=== PATIENT | female | born 1935 | race Caucasian/White ===

== ENCOUNTER 2017-09-28 11:28 | Emergency (ER) | payer MEDICARE, SELFPAY ==
[2017-09-28 11:29] VITALS: BP 181/78; PULSE 55; RESP 16; TEMP 36.6; O2SAT 98; BMI 37.4
--- NOTE | 2017-09-28 11:49 | RAD_ITS ---
STUDY: X-RAY - PELVIS AND RIGHT HIP REASON FOR EXAM: Right hip pain, leg gave out today. TECHNIQUE: Radiological exam, hip, unilateral, with pelvis when performed; 2 or 3 views. COMPARISON: None. FINDINGS: There is vascular calcification, pelvic phleboliths and injection granulomas. Normal bilateral iliac wings, sacroiliac joints and visualized sacrum. Normal bilateral superior and inferior pubic rami. Normal pubic symphysis. Normal bilateral ischial tuberosities. Normal visualized right femoral head. There is a small right os acetabula. Normal right hip joint. RAD/Hip 2-3 Views with Pelvis IMPRESSION: Small right os acetabula. No demonstrated fracture. Electronically Signed: Jonathan Pulido MD at 12:37 EDT Tel , Service support ,
[2017-09-28 12:16] VITALS: BP 193/83; PULSE 54; RESP 18; O2SAT 98
--- NOTE | 2017-09-28 13:22 | ED.DCSUM_ITS ---
- ER Visit Summary Date of Service: 09/28/17 Chief Complaint: Right hip pain History of Present Illness: The patient is a 82 F who presents with 2 days of right hip pain. She describes this as a spasms. She rates it as severe. No radiation. She denies paresthesias weakness or loss of function. She states it began after my hip gave out. She has had 2 falls in the last 2 weeks. She has been able to ambulate. She uses a walker or cane. She denies any recent illness. Physical Examination: Afebrile vitals are stable Moist mucous membranes Heart regular rate and rhythm Lungs are clear Abdomen soft Active full range of motion of the right lower extremity no focal tenderness neurovascularly intact distally with brisk capillary refill normal sensation. No pain at the knee or ankle. Test Results: Hip x-ray shows no fracture there is a small right os acetabuli. Emergency Department Course and Treatment: Patient was instructed on supportive care. She is able to ambulate. She has a life alert necklace at home. She does not want anything strong for pain such as Ruffin. We will try a course of tramadol. She understands return for new or worsening symptoms. She was referred to orthopedics for outpatient follow-up. She was discharged. Treatment Plan: [] Disposition: Discharge Impression: Right hip pain This note was generated with [employer] dictation software. It may contain incorrect words, spelling, and punctuation that were not noted in review of the chart prior to signing ED Disposition - Plan for ED Patient: Chief Complaint: Lower Extremity Injury Referrals: Regi Aguilar MD [Primary Care Provider] -
--- NOTE | 2017-09-28 13:22 | ED.DEP ---
ED Disposition - Plan for ED Patient: Chief Complaint: Lower Extremity Injury Instructions: ED Sprain Hip Prescriptions: traMADol [Ultram] 50 mg PO Q6H PRN PRN 3 Days #12 tab PRN Reason: Pain Referrals: Regi Aguilar MD [Primary Care Provider] - Martin Gibbs MD [STAFF PHYSICIAN] -
[2017-09-28] MEDS: traMADol 50 MG Tablet PO (13:37)
[2017-09-28 13:45] VITALS: RESP 18
--- NOTE | 2017-09-28 13:45 | ED.RN ---
DR. ROMERO AWARE OF PT'S BP AND STATES SHE IS OKAY TO BE DISCHARGED. REVIEWED D/C INSTRUCTIONS, FOLLOW UP CARE, PRESCRIPTION, AND S/S THAT WOULD WARRANT A RETURN TO THE ED WITH PT. PT VERBALIZED AN UNDERSTANDING AND DENIES FURTHER QUESTIONS FOR THIS RN. PT SKIN P/W/D, RESP EVEN AND UNLABORED, PT A&O X 3, NO DISTRESS NOTED. PT ASSISTED OUT OF ED IN WHEELCHAIR.
== END 2017-09-28 13:46 | disposition home or self-care (01) ==
LOC: ED 12:17
PROVIDERS: Emergency Provider Emergency Medicine; Family Provider Internal Medicine; PCP Internal Medicine
DX: M25.551 Pain in right hip (principal); M25.851 Other specified joint disorders, right hip; Z91.81 History of falling; Z86.73 Personal history of transient ischemic attack (TIA), and cerebral infarction without residual deficits; I25.10 Atherosclerotic heart disease of native coronary artery without angina pectoris; I25.2 Old myocardial infarction; I10 Essential (primary) hypertension; Z95.5 Presence of coronary angioplasty implant and graft; Z79.82 Long term (current) use of aspirin; Z79.899 Other long term (current) drug therapy
CPT/HCPCS: 73502; 99283

== ENCOUNTER 2017-10-02 17:12 | Inpatient (IN) | payer MEDICARE, SELFPAY ==
[2017-10-02 17:13] VITALS: BP 233/94; PULSE 57; RESP 16; TEMP 36.3; BMI 36.1
--- NOTE | 2017-10-02 17:48 | RAD_ITS ---
STUDY: X-RAY - RIGHT KNEE REASON FOR EXAM: Female, 82 years old. Numbness. TECHNIQUE: 4 view(s) of the knee. COMPARISON: 04/05/2016. FINDINGS: Normal visualized distal femur. Normal visualized proximal tibia and fibula. Normal proximal tibiofibular articulation. There is no demonstrated fracture. There is mild degenerative arthrosis of the medial femorotibial compartment. Normal lateral femorotibial compartment. There is mild degenerative arthrosis of the patellofemoral articulation. There is no demonstrated joint effusion. The soft tissue structures are unremarkable. RAD/Knee 4 or More Views IMPRESSION: No acute abnormality or change. Mild degenerative changes. Electronically Signed: Edvin Gallardo MD at 20:05 EDT , Service support ,
--- NOTE | 2017-10-02 17:48 | VDLE_ITS ---
Reason For Study: LEG PAIN RIGHT GSV is normal. CFV is compressible, spontaneous, phasic, competent and demonstrates normal augmentation. FV is compressible, spontaneous, phasic, competent and demonstrates normal augmentation. POP V is compressible, spontaneous, phasic, competent and demonstrates normal augmentation. T/P Trunk is compressible. PTV is compressible. RT PerV is compressible. Procedure Exam performed portable in patient room. A preliminary report was called and/or faxed to PCU charge nurse. Interpretation Summary Deep veins of the right lower extremity are patent and compressible segmentally. There is no evidence of right lower extremity deep vein thrombosis. Valvular competence appears intact within the proximal deep venous system on the right . The right greater saphenous vein appears patent and compressible segmentally. Ordering Physician: Riley Medrano Referring Physician: Regi Aguilar M.D. Performed By: Olesya Maldonado RVT
--- NOTE | 2017-10-02 17:48 | RAD_ITS ---
STUDY: X-RAY - PELVIS AND RIGHT HIP REASON FOR EXAM: Female, 82 years old. Numbness. TECHNIQUE: Radiological exam, hip, unilateral, with pelvis when performed; 2 or 3 views. COMPARISON: None. FINDINGS: There is a non-specific bowel gas pattern. Normal visualized soft tissue structures. Normal bilateral iliac wings, sacroiliac joints and visualized sacrum. Normal bilateral superior and inferior pubic rami. Normal pubic symphysis. Normal bilateral ischial tuberosities. Normal visualized femoral head. Normal acetabulum. There is mild articular joint space narrowing of the hip. RAD/Hip 2-3 Views with Pelvis IMPRESSION: No acute abnormality. Electronically Signed: Edvin Gallardo MD at 20:06 EDT , Service support ,
--- NOTE | 2017-10-02 19:17 | ED.RN ---
UNABLE TO OBTAIN IV, LAB TO BE CALLED TO DRAW BLOOD
--- NOTE | 2017-10-02 19:36 | ED.RN ---
PT AND FAMILY BOTH STATE SHE WAS JUST HERE THE OTHER DAY. NO MEDS HAVE CHANGED SINCE THEN. THEY ARE ALL THE SAME. WE DO NOT HAVE A LIST WITH US.
[2017-10-02] MEDS: traMADol 50 MG Tablet PO (19:57)
[2017-10-02] MEDS: hydrOXYzine PAM 25 MG Capsule PO (20:23)
--- NOTE | 2017-10-02 20:29 | EKG12_ITS ---
Test Reason : PAIN Blood Pressure : / mmHG Vent. Rate : 081 BPM Atrial Rate : 081 BPM P-R Int : 168 ms QRS Dur : 092 ms QT Int : 402 ms P-R-T Axes : 052 -01 171 degrees QTc Int : 466 ms Sinus rhythm with frequent Premature ventricular complexes Nonspecific ST and T wave abnormality Abnormal ECG Confirmed by KYLE HDZ, JOSÉ ([id number]), editor dictionary JOCE KERN ([id number]) on 10/05/2017 2:48:11 PM Referred By: NICK Confirmed By:JOSÉ WRIGHT MD
[2017-10-02 20:32] VITALS: BP 210/98; PULSE 64; RESP 18; O2SAT 97
--- NOTE | 2017-10-02 20:33 | ED.RN ---
LAB IN ROOM WITH PT. PT REFUSES IV.
[2017-10-02 21:02] LABS: Absolute Lymphocyte Count 4.75 X10^3/ul (0.83-4.51); Absolute Neutrophil Count 5.6 X10^3/uL (2.0-7.7); Basophil# 0.02 X10^3/uL; Basophil% 0.2 % (0-1); Eosinophil# 0.05 X10^3/uL; Eosinophils% 0.5 % (0-5); Hematocrit 34.6 % (37-47); Hemoglobin 11.4 g/dl (12.0-15.0); Lymphocyte # 4.75 X10^3/ul (4.0); Lymphocyte % 43.1 % (19-41); Mean Corp Hgb Conc 32.9 g/gl (32-36); Mean Corpuscular Hgb 26.3 pg (27.0-32.0); Mean Corpuscular Volume 79.7 fL (81-99); Mean Platelet Vol. 8.6 fl (6.2-12.0); Monocyte# 0.57 X10^3/uL; Monocyte% 5.2 % (0-10); Neutrophil % 50.8 % (47-70); Platelet Count 365 K/mm3 (150-450); RBC Distribution Width CV 16.5 % (11.6-14.6); RBC Distribution Width SD 48.3 fl (35.1-43.9); Red Blood Count 4.34 M/mm3 (4.2-5.4)
[2017-10-02 21:04] LABS: POSITIVE COUNT NO; POSITIVE DIFFERENTIAL NO; POSITIVE MORPHOLOGY NO
[2017-10-02 21:17] LABS: Anion Gap 11 (5-15); BUN 13 mg/dL (7-18); BUN/Creat Ratio 14.7 RATIO (10-20); Calcium,Total 9.5 mg/dL (8.5-10.1); Chloride 96 mmol/L (98-107); Creatinine, Serum 0.88 mg/dL (0.55-1.02); EST Glomerular Filtration Rate 65 mL/min (>60); Est Glom Filt Rate - Afr Amer 79 mL/min (>60); Estimated Creatinine Clearance 44.03 ml/min; Glucose 101 mg/dL (74-106); Potassium 3.2 mmol/L (3.5-5.1); Sodium Level 130 mmol/L (136-145)
[2017-10-02] MEDS: cloNIDine HCl 0.1 MG Tablet PO (21:34)
[2017-10-02 21:45] LABS: International Normalized Ratio 0.9; Prothrombin Time (Protime)PT. 12.5 SECONDS (11.7-14.9)
--- NOTE | 2017-10-02 22:01 | ED.DCSUM_ITS ---
- ER Visit Summary Date of Service: 10/02/17 Chief Complaint: Right hip and leg pain History of Present Illness: The patient is a 82 F who presents with right hip and leg pain. History is difficult. She is a very poor informant. I did see her several days ago. She had a hip x-ray at that time which was unremarkable and was sent home on tramadol. She states that this was providing a little relief. She ran out last night. No falls. Initially T she told me that she was unable to ambulate at all today. She then stated that she was ambulating with a walker. She initially told me that her pain was isolated to her right hip and that she had no leg pain. She then stated that she had leg numbness. She then stated that the pain went down to her knee. She then stated that the pain went all the way to her foot. Denies back pain abdominal pain chest pain shortness of breath nausea vomiting diarrhea. Physical Examination: Blood pressure 233/94. Afebrile vitals otherwise unremarkable Heart regular rate and rhythm Lungs clear Abdomen soft Patient is right hip tenderness and painful range of motion she had some mild tenderness of the right knee as well she has no edema she has capillary refill less than 2 seconds I was unable to easily palpate pulses but she does have Doppler signals of the dorsalis pedis and posterior tibial pulses Test Results: Labs are notable for hemoglobin 11.4, potassium 3.2, sodium 130. INR normal. EKG shows sinus rhythm with PVCs. There are nonspecific ST-T wave changes. X-ray shows no acute process. Knee x-ray shows mild degenerative changes. Emergency Department Course and Treatment: She is complaining of limited mobility and increased right hip pain despite tramadol at home. She also has uncontrolled hypertension. On manual her systolic was about to 10. She has been given clonidine. She was also asking for something for anxiety and was given Vistaril. She states that tramadol really was not helping but refused oxycodone when it was offered and asked just for tramadol which was given. Patient will be discussed with the hospitalist for admission. I do feel she will need further workup for her right lower extremity pain and difficulty with ambulation Treatment Plan: [] Disposition: Admit Impression: Right hip and leg pain Uncontrolled hypertension This note was generated with [employer] software. It may contain incorrect words, spelling, and punctuation that were not noted in review of the chart prior to signing ED Disposition - Plan for ED Patient: Chief Complaint: Lower Extremity Injury Referrals: Regi Aguilar MD [Primary Care Provider] -
[2017-10-02 22:14] VITALS: BP 209/89; PULSE 77; RESP 18; O2SAT 98
--- NOTE | 2017-10-02 23:14 | PCM.HP.STD ---
Problem List (1) HTN (hypertension) Status: Chronic (2) Anxiety Status: Acute (3) Neuropathy Status: Acute History of Present Illness Date of Admission: 10/02/17 Chief Complaint: HTN urgency The patient is a 82 year old female w/ h/o HTN, GERD, and lipidemia admitted for HTN urgency. Pt lives by herself and has been getting progressively weaker. She is a poor historian and has poor insight and judgment. Family members have been thinking about wanting to place her in a half-way. She is unable to care for herself and has been forgetful. She came into the ED because of bilateral lower extremities weakness. Nothing appeared to make it better or worse. The weakness is associated to acute on chronic worsening bilateral hip and knee pain. Pain is dull aching and severe. She is supposed to take medication for her pain but she refused. It is questionable that she took her high blood pressure meds. Family members have been caring for her but has not told her that she may need to go to the half-way for care. Past Medical History Past Medical History (Chronic Problems): Chronic Problems HTN (hypertension) (Chronic) Allergies cortisone [Cortisone] Allergy (Verified 09/28/17 11:31) Swelling Penicillins Allergy (Verified 09/28/17 11:31) Swelling sulfamethoxazole [From Bactrim] Allergy (Verified 09/28/17 11:31) Swelling trimethoprim [From Bactrim] Allergy (Verified 09/28/17 11:31) Swelling Home Medications: Ambulatory Orders Medication Instructions Recorded Calcium Carbonate/Vitamin D3 1 each PO DAILY 06/25/13 [Calcium 600-Vit D3 400 Tablet] Gabapentin 1,200 mg PO Q8 06/25/13 Glucosamine Sulfate Dipot Chlr 500 mg PO DAILY 06/25/13 [Glucosamine Relief] Hydrochlorothiazide 25 mg PO DAILY 06/25/13 Lisinopril 10 mg PO DAILY 06/25/13 Metoprolol Tartrate 12.5 mg PO DAILY 06/25/13 Aspirin 325 mg PO DAILY@0800 #30 tablet 06/27/13 Pantoprazole Sodium [Protonix] 40 mg PO DAILY 06/27/13 Pravastatin [Pravachol] 20 mg PO QHS #30 tablet 06/27/13 Metronidazole [Flagyl] 500 mg PO Q8H #15 tablet 08/29/14 levoFLOXacin tablet [Levaquin] 500 mg PO DAILY #5 tablet 08/29/14 Docusate Sodium [Colace] 100 mg PO DAILY #20 capsule 03/28/16 Nitrofurantoin Macrocrystals 100 mg PO Q12 #14 capsule 04/03/16 [Macrobid] traMADol [Ultram] 50 mg PO Q6H PRN PRN 3 Days #12 tab 09/28/17 Surgical History: appendectomy, coronary bypass surgery, - - Appendectomy partial hysterectomy coronary artery bypass surgery, salpingectomy Psychiatric History: No pertinent psych hx 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 Denies: Joint Tenderness Skin: Denies: Rash, Wounds Neurological: Denies: Numbness, Tingling, Focal weakness Psychiatric: Denies: Anxiety, Depression, Homicidal Ideations, Suicidal Ideations Hematologic/ Lymphatic: Denies: Easy Bruising, Easy Bleeding VTE Information - Inpt Only VTE Present on Admission: No VTE Mechan Device Prophylaxis: SCD's VTE Pharm Prophylaxis ordered?: Yes Patient Problems: Active and Suspected Problems Anxiety (Acute) Neuropathy (Acute) - Physical Exam General: Alert, Cooperative HEENT: Atraumatic, PERRLA, EOMI, Normocephalic Neck: Supple, No JVD, Negative Carotid Bruits Lungs: Clear to auscultation, Normal air movement Cardiovascular: Regular rate, No murmurs Abdomen: Bowel Sounds Present, Soft, Non Tender Extremities: No edema, Capillary Refill Less than 3 Seconds Skin: No rashes, No breakdown Musculoskeletal: No Tenderness to Palpation of Joints or Extremities Neurological: Cranial nerves II-XII grossly intact Psych/Mental Status: Normal Affect, Appropriate Vital Signs Temp Pulse Resp BP Pulse Ox 97.3 F L 77 18 209/89 H 98 10/02/17 17:13 10/02/17 22:14 10/02/17 22:14 10/02/17 22:14 10/02/17 22:14 Weight: 95.45 kg Body Mass Index (BMI) 36.1 Finger Stick Blood Glucose 106 Laboratory Tests Past 24 Hrs 10/02/17 10/02/17 10/02/17 20:40 20:40 20:40 WBC 11.0 RBC 4.34 Hgb 11.4 L Hct 34.6 L MCV 79.7 L MCH 26.3 L MCHC 32.9 RDW 16.5 H RDW Differential 48.3 H Plt Count 365 MPV 8.6 Immature Gran % (Auto) 0.200 Neut % (Auto) 50.8 Lymph % (Auto) 43.1 H [place] % (Auto) 5.2 Eos % (Auto) 0.5 Baso % (Auto) 0.2 Absolute Neuts (auto) 5.6 Absolute Lymphs (auto) 4.75 H Total Counted Not Reportable PT 12.5 INR 0.9 Sodium 130 L Potassium 3.2 L Chloride 96 L Carbon Dioxide 23.0 Anion Gap 11 BUN 13 Creatinine 0.88 Estim Creat Clear Calc 44.03 Est GFR (MDRD) Af Amer 79 Est GFR (MDRD) Non-Af 65 BUN/Creatinine Ratio 14.7 Glucose 101 Calcium 9.5 Assessment/Plan Active and Suspected Problems Anxiety (Acute) Neuropathy (Acute) 82 year old female w/ h/o HTN, GERD, and lipidemia admitted for HTN urgency. 1) HTN urgency: Probably secondary to noncompliant w/ meds. Resume home meds. Will bring SBP down slowly. Monitor. 2) Bilateral lower extremity pain: Most likely acute on chronic. Xray disclosed no acute changes. PT/OT. Will probably need placement as pt cannot care for her ADLs. 3) Bilateral lower extremity weakness: PT/OT. Supportive care 4) Dispo: May need placement.
[2017-10-02 23:44] VITALS: PULSE 66
[2017-10-03] VITALS (15 sets, daily range): BP systolic 95–190; BP diastolic 50–98; PULSE 68–135; RESP 14–20; TEMP 36.5–38.9; O2SAT 95–100; BMI 36.8; BMI 36.9
[2017-10-03] MEDS: traMADol 50 MG Tablet PO (03:54)
[2017-10-03] MEDS: LORazepam 1 MG Tablet PO ×2 (04:18→08:50)
[2017-10-03 05:24] LABS: Mucous, Urine 0 SEEN /hpf (<or=2+)
[2017-10-03 05:28] LABS: Color, Urine Yellow (Yellow); Glucose, Dipstick Normal (Normal); Ketone-Dipstick 5 mg/dl (Negative); Leukocyte Esterase-Dipstick 500 /ul (Negative); Nitrite-Dipstick Positive (Negative); Occult Blood-Urine 10 /ul (Negative); Protein-Dipstick Negative (Negative); Urine Bilirubin Dipstick Negative (Negative); Urine Clarity Sl. Cloudy (Clear); Urine Urobilinogen Normal (Normal)
[2017-10-03 05:37] LABS: Bacteria 3+ /hpf (None Seen); Red Blood Cells-Urine 0-5 SEEN /hpf (0-5); Squamous Epithelial Cells - UA 0-5 SEEN /hpf (5-10); White Blood Cells 50-100 SEEN /hpf (0-5)
[2017-10-03 06:11] LABS: Hematocrit 33.3 % (37-47); Mean Corpuscular Hgb 26.2 pg (27.0-32.0); Mean Corpuscular Volume 79.3 fL (81-99); Mean Platelet Vol. 8.8 fl (6.2-12.0); Platelet Count 380 K/mm3 (150-450); RBC Distribution Width CV 16.5 % (11.6-14.6); RBC Distribution Width SD 47.5 fl (35.1-43.9); White Blood Count 8.8 K/mm3 (4.4-11.0)
[2017-10-03 06:17] LABS: Scan Indicated on CBC? Y/N NO
[2017-10-03] MEDS: Gabapentin 600 MG Tablet PO ×2 (06:28→23:13)
[2017-10-03] MEDS: Senna Tablet 2 TABLET PO (06:28)
[2017-10-03] MEDS: Enoxaparin 40 MG/0.4 ML Syringe SC (06:29)
[2017-10-03] MEDS: Docusate Sodium 100 MG Capsule PO (06:29)
[2017-10-03 06:32] LABS: Anion Gap 13 (5-15); BUN 13 mg/dL (7-18); BUN/Creat Ratio 15.4 RATIO (10-20); Calcium,Total 9.5 mg/dL (8.5-10.1); Chloride 96 mmol/L (98-107); Creatinine, Serum 0.84 mg/dL (0.55-1.02); EST Glomerular Filtration Rate 69 mL/min (>60); Est Glom Filt Rate - Afr Amer 84 mL/min (>60); Estimated Creatinine Clearance 46.13 ml/min; Glucose 98 mg/dL (74-106); Potassium 3.4 mmol/L (3.5-5.1); Sodium Level 133 mmol/L (136-145)
[2017-10-03] MEDS: Metoprolol Tartrate 25 MG Tablet 12.5 MG PO (08:51)
[2017-10-03] MEDS: Isosorbide Mononitrate 60 MG Tablet PO (08:51)
[2017-10-03] MEDS: Aspirin 325 MG Tablet PO (08:51)
[2017-10-03] MEDS: Pantoprazole Sodium 40 MG Tablet PO (08:52)
[2017-10-03] MEDS: Calcium Carb/Vitamin D 1 TABLET Tablet PO (08:52)
[2017-10-03] MEDS: amLODIPine 5 MG Tablet PO (08:52)
[2017-10-03] MEDS: Lisinopril 10 MG Tablet PO (08:53)
--- NOTE | 2017-10-03 13:04 | PN_ITS ---
Patient Problems: Active and Suspected Problems Anxiety (Acute) Neuropathy (Acute) Subjective: Patient is an 82-year-old female with a past medical history of hypertension, GERD, hyperlipidemia and neuropathy (on a very high dose of Gabapentin) who presented to the Ed at [facility] on 10/02/2017 c/o Right hip and leg pain. She is a very poor historian. Recently was seen in the ED for R hip pain and the XRAY was negative. She was given Tramadol for pain and sent home. X-rays of the hip and pelvis showed no fractures. An x-ray of the right knee showed no acute abnormality but did show mild degenerative changes. The night hospitalist spoke to her family and they related the patient has poor insight and judgment. They have been thinking about placing her in a fdc. They do not feel she is able to take care of herself and she has been very forgetful. She has been refusing medications. It is unclear if she is taking any of the medications prescribed to her at home. She was admitted to the hospital with a diagnosis of hypertensive urgency and her home medications were resumed. Consultation with PT and OT was ordered. Pt was sleeping today and not seen by PT. She is afebrile. Her pressure at 08 45 was 190/87 and at 1021 the blood pressure is 95/50. Room air pulse ox is 97%. Heart rate is in the 80s. On telemetry she has normal sinus rhythm with PVCs and occasional couplets. Oral intake. CBC shows a normal white blood cell count today of 8.8. Hemoglobin is stable at 11 with a MCV of 79 and an RDW of 16.5. It is are within normal limits. Sodium was low at 06/07/2012 and the potassium is low at 3.4. BUN is 13 with a creatinine of 0.84. A UA had 50-100 WBCs per high-power field with 3+ bacteria and positive nitrites. There was an order for a cath in the ED. She has been sleeping most of the day....got Ativan last night for behavioral disturbance. Objective: Lying flat on her back when I entered the room in no respiratory distress. She is sleeping and difficult to arouse. The head is atraumatic and normocephalic. Eyes are equal round reactive to light and accommodation. Neck: Supple, no nuchal rigidity, no JVD, brisk carotid upstroke with good pulse volume Lungs: Clear to auscultation with no wheezes, rhonchi or rales Heart: Regular rate and rhythm with occasional ectopic beat, normal S1, normal S2, no murmur, no gallop, no rub Abdomen: Soft, nondistended, no guarding with palpation, bowel sounds present, no masses, no organomegaly Extremities: No edema, no cyanosis Neurologic-no facial asymmetry, no focal neurologic deficits, able to move all 4 extremities. confused - Physical Exam Vital Signs Temp Pulse Resp BP Pulse Ox 98.0 F 83 16 95/50 L 97 10/03/17 08:45 10/03/17 11:00 10/03/17 08:45 10/03/17 10:21 10/03/17 08:45 Oxygen Delivery Method Room Air Weight: 214 lb 11.684 oz Body Mass Index (BMI) 36.8 Intake and Output for Last 24 Hours 10/01/17 10/02/17 10/03/17 23:59 23:59 23:59 Intake Total 100 / 100 Output Total 1200 / 1200 450 / 450 Balance -1200 / -1200 -350 / -350 Laboratory Tests Past 24 Hrs 10/02/17 10/03/17 10/03/17 23:58 04:27 05:28 WBC 8.8 RBC 4.20 Hgb 11.0 L Hct 33.3 L MCV 79.3 L MCH 26.2 L MCHC 33.0 RDW 16.5 H RDW Differential 47.5 H Plt Count 380 MPV 8.8 Sodium Potassium Chloride Carbon Dioxide Anion Gap BUN Creatinine Estim Creat Clear Calc Est GFR (MDRD) Af Amer Est GFR (MDRD) Non-Af BUN/Creatinine Ratio Glucose Calcium Troponin I < 0.015 Urine Color Yellow Urine Clarity Sl. Cloudy Urine pH 8.0 Ur Specific [place] 1.010 Urine Protein Negative Urine Glucose (UA) Normal Urine Ketones 5 H Urine Occult Blood 10 H Urine Nitrite Positive H Urine Bilirubin Negative Urine Urobilinogen Normal Ur Leukocyte Esterase 500 H Urine RBC 0-5 SEEN Urine WBC 50-100 SEEN Ur Squamous Epith Cells 0-5 SEEN Urine Bacteria 3+ Urine Mucus 0 SEEN 10/03/17 05:28 WBC RBC Hgb Hct MCV MCH MCHC RDW RDW Differential Plt Count MPV Sodium 133 L Potassium 3.4 L Chloride 96 L Carbon Dioxide 24.0 Anion Gap 13 BUN 13 Creatinine 0.84 Estim Creat Clear Calc 46.13 Est GFR (MDRD) Af Amer 84 Est GFR (MDRD) Non-Af 69 BUN/Creatinine Ratio 15.4 Glucose 98 Calcium 9.5 Troponin I Urine Color Urine Clarity Urine pH Ur Specific [place] Urine Protein Urine Glucose (UA) Urine Ketones Urine Occult Blood Urine Nitrite Urine Bilirubin Urine Urobilinogen Ur Leukocyte Esterase Urine RBC Urine WBC Ur Squamous Epith Cells Urine Bacteria Urine Mucus Medical Necessity - Tobacco Use Smoking Status: Never smoker Assessment/Plan Active and Suspected Problems Anxiety (Acute) Neuropathy (Acute) Impressions 1. UTI - I have been told that she self cath's at home and I find it difficult to believe this 82 YO woman who is obviously non-compliant with meds and has poor judgement and poor memory self caths? 2. Hypertensive urgency - suspect due to non-compliance with meds. 3. On Gabapentin at a very high dose - neuropathy as etiology of the LE pain? This dose of Neurontin in an 82 YO could certainly be contributing to the AMS. 4. HTN 5. Microcytic anemia 6. Hyponatremia-on hydrochlorothiazide as an outpatient 7. Hypokalemia-likely due to diuretic....if she is taking it? it may be due to not eating. No CTB done in the ED.....we are not familiar with her baseline....all we have to go on is the family's history. CTB tonight Insert a HL, midline if nursing is unable to get a midline DC the Ativan and use Haldol and Seroquel for behavioral disturbances. DC the metoprolol and use Labetalol, beta blockers are not as effective in Americans as labetalol Add back the diuretic PRN Hydralazine for BP control Check a TSH, SANDIE, B12 and RPR in addition to the CTB to w/u for treatable causes of memory loss. Taper the Gabapentin. Code Visit Inpatient E&M: 87875 Subs Hosp L2
--- NOTE | 2017-10-03 18:05 | CT_ITS ---
STUDY: CT BRAIN WITHOUT CONTRAST REASON FOR EXAM: Female, 82 years old. Altered mental status. RADIATION DOSAGE (If Supplied By Facility): CTDIvol = ( 44.99 ) mGy, DLP = ( 846.73 ) mGycm TECHNIQUE: Transaxial CT imaging of the brain was performed without administration of intravenous contrast material. Imaging was degraded by patient motion. Individualized dose optimization techniques were used for this CT. COMPARISON: Noncontrast CT brain and MRI brain June 25, 2013. FINDINGS: Normal soft tissue structures. Normal calvarium. There are stable atherosclerotic calcifications of the cavernous segments of the internal carotid arteries. There is mild cerebral atrophy with widening of the extra-axial spaces. Mild ventricular dilatation is increased from previous exam. There are areas of decreased attenuation within the white matter tracts of the supratentorial brain, consistent with microvascular disease changes. 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 There is stable vague increased density/calcification of the medial right basal ganglia, which may be seen in the aging brain as a normal variant. Normal brainstem. Normal cerebellum. There is no intracranial hemorrhage. There are no findings of an acute ischemic infarction. Normal visualized paranasal sinuses. CT/Brain/Head without Contrast IMPRESSION: Chronic involutional/microvascular changes of the brain, as noted. No acute intracranial pathology. Electronically Signed: Marcelo Umanzor MD at 19:40 EDT , Service support ,
[2017-10-03] MEDS: hydroCHLOROthiazide 25 MG Tablet PO (18:07)
[2017-10-03 18:43] LABS: Anion Gap 10 (5-15); BUN 13 mg/dL (7-18); Calcium,Total 9.8 mg/dL (8.5-10.1); Chloride 95 mmol/L (98-107); EST Glomerular Filtration Rate 57 mL/min (>60); Est Glom Filt Rate - Afr Amer 69 mL/min (>60); Estimated Creatinine Clearance 38.75 ml/min; Glucose 108 mg/dL (74-106); Potassium 4.1 mmol/L (3.5-5.1); Sodium Level 130 mmol/L (136-145)
[2017-10-03 19:26] LABS: Thyroid Stim Hormone (TSH) 0.88 uIU/mL (0.358-3.74)
--- NOTE | 2017-10-03 20:11 | NURSING ---
IV grinder watch parts called this nurse to state that midline insertion cannot be done tonight. Someone will be here tomorrow 10/04/17 between 9 and 10 AM.
[2017-10-03 20:44] LABS: Vitamin B12 1815 pg/mL (211-911)
[2017-10-03] MEDS: 0.9% NaCl Peripheral Flush Adult/Peds IV (21:11)
--- NOTE | 2017-10-03 21:15 | NURSING ---
Called Bhavya at [employer] and cancelled Midline to be done 10/04/17. Patient now has IV access.
[2017-10-03 21:50] LABS: Anion Gap 10 (5-15); BUN 13 mg/dL (7-18); BUN/Creat Ratio 13.5 RATIO (10-20); Calcium,Total 9.9 mg/dL (8.5-10.1); Chloride 97 mmol/L (98-107); Creatinine, Serum 0.96 mg/dL (0.55-1.02); EST Glomerular Filtration Rate 59 mL/min (>60); Est Glom Filt Rate - Afr Amer 72 mL/min (>60); Estimated Creatinine Clearance 40.36 ml/min; Glucose 144 mg/dL (74-106); Potassium 3.6 mmol/L (3.5-5.1); Sodium Level 129 mmol/L (136-145)
--- NOTE | 2017-10-03 23:00 | NURSING ---
Straight cathed pt. at this time for 300 cc return. Urine sent for lab testing as ordered.
[2017-10-03] MEDS: QUEtiapine 25 MG Tablet 50 MG PO (23:41)
[2017-10-03] MEDS: Pravastatin 20 MG Tablet PO (23:42)
[2017-10-03] MEDS: Labetalol 200 MG Tablet 400 MG PO (23:42)
[2017-10-04] VITALS (12 sets, daily range): BP systolic 150–196; BP diastolic 49–78; PULSE 71–97; RESP 14–20; TEMP 36.8–37.3; O2SAT 95–99
[2017-10-04] MEDS: 0.9% NaCl Peripheral Flush Adult/Peds IV ×2 (00:19→09:58)
[2017-10-04] MEDS: Ceftriaxone 1 GM/50 ML BAG IV ×2 (00:30→09:35)
[2017-10-04 00:52] LABS: Anion Gap 11 (5-15); BUN 13 mg/dL (7-18); BUN/Creat Ratio 14.4 RATIO (10-20); Calcium,Total 9.8 mg/dL (8.5-10.1); Chloride 96 mmol/L (98-107); EST Glomerular Filtration Rate 64 mL/min (>60); Est Glom Filt Rate - Afr Amer 77 mL/min (>60); Estimated Creatinine Clearance 43.05 ml/min; Glucose 142 mg/dL (74-106); Potassium 3.5 mmol/L (3.5-5.1); Sodium Level 130 mmol/L (136-145)
[2017-10-04 06:35] LABS: Ferritin 179 ng/mL (8-252); Iron 17 ug/dL (50-170); Iron Binding Capacity,Total 235 ug/dL (250-450); PERCENT IRON SATURATION 7.2 % (15.0-55.0)
--- NOTE | 2017-10-04 06:40 | NURSING ---
Straight cathed pt. at this time. Return of 400 cc. ott yellow urine with sediment. Pt. tolerated well.
[2017-10-04] MEDS: Gabapentin 600 MG Tablet PO ×2 (06:47→22:19)
[2017-10-04] MEDS: Enoxaparin 40 MG/0.4 ML Syringe SC (06:47)
[2017-10-04 07:41] LABS: Immature Platelet Fraction 1.7 % (1.0-7.9); RET-HE 28.3 pg (30-35); Reticulocyte Count 1.29 % (0.5-1.5)
[2017-10-04] MEDS: hydrALAZINE 20 MG/ML Vial IV (09:58)
[2017-10-04 10:11] LABS: Bedside Glucose 143 mg/dL (70-110)
--- NOTE | 2017-10-04 10:20 | CASEMGMT ---
SW reviewed chart, it seems family is considering placement for pt, have not spoken w/pt about this yet. SW spoke w/OT, pt was too sleepy to participate in therapy this morning. In paper chart, it's written that Shawn Perkins([phone]) and Marcela Kenny([phone]) are pt's nieces and POA's, Shawn works until 2pm and Marcela goes into work at 2pm. SW called Marcela, left message for her to call either this SW or REZA Vance back. REZA will continue to follow. CRISTI Regan, SOFTWARE DESIGN ENGINEER
[2017-10-04 10:21] LABS: Allen Test NEG; Base Excess 1 mmol/L (-2 to +2); Bicarbonate 24.7 mmol/L (22-26); Blood Gas Specimen Type ART; O2 Delivery Device Room Air; PO2 73 mmHG (75-100); SITE L Radial; SO2 96 % (95-99); Time Given 1015; Total Carbon Dioxide 26 mmol/L; pCO2 33.6 mmHg (35-45); pH 7.47 (7.35-7.45)
--- NOTE | 2017-10-04 11:18 | CASEMGMT ---
See assessment. Pt is very sleepy at this time, REZA spoke w/niece Marcela Kenny. She states she and Shawn, pt's other niece, are her POA's, states Shawn is her executor. REZA asked Marcela to bring in the POA forms. Prior to this hospitalization, pt was living home alone, Marcela states pt's friend Dixie was helping to bathe pt and clean the house. Marcela states that Dixie has her own life and may work. Marcela states pt has a 2 story home, but stays on the first floor. Pt has a cane and a walker, Marcela is not certain if pt is using her walker--she is supposed to due to her neuropathy. Marcela states she does not know as well as some other family members as she lives in [place] and sees pt every other week, calls her a couple of times per week. Marcela states does help her around the house when she visits pt. Marcela does confirm pt straight caths herself. Marcela states pt was to start PT as an outpt. Pt fell, got a shot here in the ER, and has been painful since then. As per Marcela, pt also has a friend named Dixie, a sister Lois and a brother Vidal who are involved. Marcela states that the family is all making decisions together, pt normally makes her own decisions. We talked about jail placement, Marcela is not sure if this would be for [facility] or [facility], does not think the decision should be up to her. She does not know if pt is agreeable to [facility] placement. She does not know pt's financial situation either, she states pt's friend Dixie or her sister Lois may know. We reviewed options, Marcela states she and family talked about it and she thinks [facility] would be a good option. REZA explained we can make the referral, but it may be a good idea to have a second choice in mind in event [facility] cannot take pt. Marcela said they do not referrals sent to [facility] or [facility](pt's niece Shawn works at [facility]), did not give a second choice at this time. REZA explained that we will talk to pt when able to see if she is in agreement with this, and if needed we may have a family meeting w/pt when she is able. Marcela thinks pt needs [facility] placement. SW will continue to follow, will make referral to [facility] when appropriate and speak w/pt when she is able. CRISTI Regan, BURNISHING MACHINE OPERATOR
--- NOTE | 2017-10-04 15:07 | PCM.PROGNOTE ---
Patient Problems: Active and Suspected Problems Anxiety (Acute) Neuropathy (Acute) Subjective: Rocephin day #2 T-max 102.1?F last night at 21:22 Blood pressures are mildly elevated and have ranged from 122/83 to 190/98 over the past 4 hours. 99% saturated on room air. She was tachycardic with a fever last night but current heart rate is within normal limits. Fluid balance since admission is -1922. Urine output on 10/03/2017 was 950 cc. ABG on room air today shows a pH of 7.47, PCO2 of 33.6 and a PO2 with a pulse ox of 96%. Sodium today is low at 130 and the potassium is 3.5. The BUN is 13 and the creatinine is 0.9 Iron studies show a low serum iron of 17 with a TIBC of 235 and a ferritin of 179. B12 was within normal limits. TSH is normal at 0.88. Ammonia is 11. Fasting glucose today is 142. UA obtained last night showed 50-100 WBCs per high-power field and 3+ bacteria. She was started on Rocephin by the night hospitalist. she was able to wake up and say a few words to me today. She denies pain. she told me she could eat some supper and that she was thirsty. she later did not want supper and did not want a drink and she said she was tired. Objective: Lying on her back at about 45? when I entered the room in no respiratory distress. She is sleeping and difficult to arouse but woke up and talked with me. she denies pain. The head is atraumatic and normocephalic. Eyes are equal round reactive to light Neck: Supple, no nuchal rigidity, no JVD, brisk carotid upstroke with good pulse volume Lungs: Clear to auscultation with no wheezes, rhonchi or rales but not a good inspiratory effort Heart: Regular rate and rhythm with occasional ectopic beat, normal S1, normal S2, no murmur, no gallop, no rub Abdomen: Soft, nondistended, no guarding with palpation, bowel sounds present, no masses, no organomegaly Extremities: No edema, no cyanosis Neurologic-no facial asymmetry, no focal neurologic deficits, able to move all 4 extremities. confused - Physical Exam Vital Signs Temp Pulse Resp BP Pulse Ox 98.2 F 82 14 162/57 H 95 10/04/17 15:00 10/04/17 15:00 10/04/17 15:00 10/04/17 15:00 10/04/17 15:00 Oxygen Flow Rate (L/min) 2 Oxygen Delivery Method Room Air Weight: 214 lb 11.684 oz Body Mass Index (BMI) 36.8 Intake and Output for Last 24 Hours 10/02/17 10/03/17 10/04/17 23:59 23:59 23:59 Intake Total 250 / 250 827 / 827 Output Total 1200 / 1200 950 / 950 850 / 850 Balance -1200 / -1200 -700 / -700 -23 / -23 Laboratory Tests Past 24 Hrs 10/03/17 10/03/17 10/03/17 17:56 17:56 19:54 Immature Plt Fraction Retic Count Immature Retic Fraction Retic Hgb Equivalent Specimen Type Sample Site pH Bicarbonate Actual POC Total CO2 Base Excess O2 Saturation ABG pCO2 ABG pO2 Feng Test O2 Delivery Device Blood Gas Notified Whom Blood Gas Notified Time Sodium 130 L Cancelled Potassium 4.1 Cancelled Chloride 95 L Cancelled Carbon Dioxide 25.0 Cancelled Anion Gap 10 Cancelled BUN 13 Cancelled Creatinine 1.00 Cancelled Estim Creat Clear Calc 38.75 Est GFR (MDRD) Af Amer 69 Cancelled Est GFR (MDRD) Non-Af 57 L Cancelled BUN/Creatinine Ratio 13.0 Cancelled Glucose 108 H Cancelled Calcium 9.8 Cancelled Iron TIBC Iron Saturation Ferritin Ammonia Vitamin B12 1815 H TSH 0.88 SANDIE Screen TAMMY-1 Antibody SS-A/Ro IgG Antibody SS-B/La IgG Antibody Sm (Haider) Antibody SCREEN CUTTER AND TRIMMER Antibody Scl-70 Scleroderma Ab Double Strand DNA Ab Centromere B Antibody RPR 10/03/17 10/03/17 10/03/17 19:54 19:54 19:54 Immature Plt Fraction Retic Count Immature Retic Fraction Retic Hgb Equivalent Specimen Type Sample Site pH Bicarbonate Actual POC Total CO2 Base Excess O2 Saturation ABG pCO2 ABG pO2 Feng Test O2 Delivery Device Blood Gas Notified Whom Blood Gas Notified Time Sodium Potassium Chloride Carbon Dioxide Anion Gap BUN Creatinine Estim Creat Clear Calc Est GFR (MDRD) Af Amer Est GFR (MDRD) Non-Af BUN/Creatinine Ratio Glucose Calcium Iron TIBC Iron Saturation Ferritin Ammonia 11.0 Vitamin B12 TSH SANDIE Screen Pending TAMMY-1 Antibody Pending SS-A/Ro IgG Antibody Pending SS-B/La IgG Antibody Pending Sm (Haider) Antibody Pending SCREEN CUTTER AND TRIMMER Antibody Pending Scl-70 Scleroderma Ab Pending Double Strand DNA Ab Pending Centromere B Antibody Pending RPR Pending 10/03/17 10/04/17 10/04/17 21:20 00:21 05:35 Immature Plt Fraction Cancelled Retic Count Cancelled Immature Retic Fraction Cancelled Retic Hgb Equivalent Cancelled Specimen Type Sample Site pH Bicarbonate Actual POC Total CO2 Base Excess O2 Saturation ABG pCO2 ABG pO2 Feng Test O2 Delivery Device Blood Gas Notified Whom Blood Gas Notified Time Sodium 129 L 130 L Potassium 3.6 3.5 Chloride 97 L 96 L Carbon Dioxide 22.0 23.0 Anion Gap 10 11 BUN 13 13 Creatinine 0.96 0.90 Estim Creat Clear Calc 40.36 43.05 Est GFR (MDRD) Af Amer 72 77 Est GFR (MDRD) Non-Af 59 L 64 BUN/Creatinine Ratio 13.5 14.4 Glucose 144 H 142 H Calcium 9.9 9.8 Iron TIBC Iron Saturation Ferritin Ammonia Vitamin B12 TSH SANDIE Screen TAMMY-1 Antibody SS-A/Ro IgG Antibody SS-B/La IgG Antibody Sm (Haider) Antibody SCREEN CUTTER AND TRIMMER Antibody Scl-70 Scleroderma Ab Double Strand DNA Ab Centromere B Antibody RPR 10/04/17 10/04/17 10/04/17 05:35 07:25 10:17 Immature Plt Fraction 1.7 Retic Count 1.29 Immature Retic Fraction 2.10 L Retic Hgb Equivalent 28.3 L Specimen Type ART Sample Site L Radial pH 7.47 H Bicarbonate Actual 24.7 POC Total CO2 26 Base Excess 1 O2 Saturation 96 ABG pCO2 33.6 L ABG pO2 73 L Feng Test NEG O2 Delivery Device Room Air Blood Gas Notified Whom [facility] Blood Gas Notified Time 1015 Sodium Potassium Chloride Carbon Dioxide Anion Gap BUN Creatinine Estim Creat Clear Calc Est GFR (MDRD) Af Amer Est GFR (MDRD) Non-Af BUN/Creatinine Ratio Glucose Calcium Iron 17 L TIBC 235 L Iron Saturation 7.2 L Ferritin 179 Ammonia Vitamin B12 TSH SANDIE Screen TAMMY-1 Antibody SS-A/Ro IgG Antibody SS-B/La IgG Antibody Sm (Haider) Antibody SCREEN CUTTER AND TRIMMER Antibody Scl-70 Scleroderma Ab Double Strand DNA Ab Centromere B Antibody RPR POC Glucose 10/04/17 10:00 POC Glucose 143 H Medical Necessity - Tobacco Use Smoking Status: Never smoker Assessment/Plan All Active Problems Anxiety (Acute) Neuropathy (Acute) Right upper quadrant abdominal pain (Acute) Impressions 1. UTI - I have been told that she self cath's at home and I find it difficult to believe this 82 YO woman who is obviously non-compliant with meds and has poor judgement and poor memory self caths? 2. Hypertensive urgency - suspect due to non-compliance with meds. 3. On Gabapentin at a very high dose - neuropathy as etiology of the LE pain? This dose of Neurontin in an 82 YO could certainly be contributing to the AMS. 4. HTN 5. Microcytic anemia 6. Hyponatremia-on hydrochlorothiazide as an outpatient 7. Hypokalemia-likely due to diuretic....if she is taking it? it may be due to not eating. Continue the current therapy. Await the results of the urine culture Would really like to talk with family and see what her baseline mental status is and get a better history Code Visit Inpatient E&M: 05675 Subs Hosp L2
[2017-10-04] MEDS: QUEtiapine 25 MG Tablet 50 MG PO (22:19)
[2017-10-04] MEDS: Pravastatin 20 MG Tablet PO (22:19)
[2017-10-04] MEDS: Labetalol 200 MG Tablet 400 MG PO (22:19)
[2017-10-04] MEDS: Docusate Sodium 100 MG Capsule PO (22:19)
[2017-10-04] MEDS: Senna Tablet 2 TABLET PO (22:19)
[2017-10-04] MEDS: traMADol 50 MG Tablet PO (22:19)
[2017-10-05] VITALS (38 sets, daily range): BP systolic 89–135; BP diastolic 41–81; PULSE 55–78; RESP 14–28; TEMP 37.2–37.5; O2SAT 93–98
--- NOTE | 2017-10-05 00:31 | NURSING ---
Straight cathed pt at this time. Minimal output, straw with some sediment. Bladder scanned for 130 ml but had no more output after manipulation of cath. Will monitor.
[2017-10-05] MEDS: traMADol 50 MG Tablet PO (04:22)
[2017-10-05] MEDS: Gabapentin 600 MG Tablet PO ×2 (06:05→13:41)
[2017-10-05] MEDS: Enoxaparin 40 MG/0.4 ML Syringe SC (06:05)
--- NOTE | 2017-10-05 07:34 | PCM.PROGNOTE ---
Patient Problems: Active and Suspected Problems Anxiety (Acute) Neuropathy (Acute) Subjective: All events of the past 24 hours of been reviewed. Afebrile for the past 24 hours. Vital signs are stable and she is 96% saturated on room air. Blood pressure control is much better with restarting her regular home medications. Oral intake was very poor on 10/04/2017 and she only took 50 cc. Fluid balance since admission is -1249. She is still very somnolent. This afternoon she c/o chest pain associated with SOB and the EKG shows new T wave inversions in V3-6 and a coved T waved in V2. I have spoken with her sister and her niece and they say until this past Tuesday she was living by herself and doing well. She had no problem with confusion prior to Tuesday. Recently saw Dr. Gibbs and had an injection....she has difficulty with ambulation secondary to chronic knee and hip pain. Tuesday she did not feel well and asked to be brought to the hospital. Medications at admission to the hospital included aspirin, hydrochlorothiazide 25 mg, gabapentin 1200 mg every 8 hours, lisinopril 10 mg daily, metoprolol tartrate 12.5 mg daily, pravastatin 20 mg, tramadol as needed and pantoprazole 40 mg daily. Blood pressures were initially very uncontrolled and the metoprolol was discontinued and she was placed on labetalol which works better for BP control in [place]. Today the BP this AM was 119/43 and this afternoon at 330 was 105/54. The blood pressure dropped to 89/48 after the sublingual nitroglycerin was given. She was sitting upright in bed. Objective: Patient is sleepy and difficult to understand but she does arouse to calling her name and she is answering questions. Current heart rate is 71-78 bpm and she is in normal sinus rhythm. Current blood pressure is 108 systolic. She was 97% saturated on room air earlier today. Membranes are dry. There is no JVD. Lungs-patient is having Jewel[place]akely respirations and has good air exchange with deep breaths. No rales and no wheezes were heard. Breath sounds are diminished in the bases. There is symmetric chest rise. She has no accessory muscle use. Heart-regular rate and rhythm, no murmur, no gallop, no rub, normal S1, normal S2 Abdomen-obese, soft, nontender, nondistended, bowel sounds present, no guarding with palpation No peripheral edema, no calf tenderness, peripheral pulses are diminished, no clubbing She seems confused but at the same time is answering my questions appropriate......I think she is just oversedated. - Physical Exam Vital Signs Temp Pulse Resp BP Pulse Ox 99 F 73 14 119/43 L 96 10/05/17 04:11 10/05/17 06:57 10/05/17 04:11 10/05/17 04:11 10/05/17 04:11 Oxygen Flow Rate (L/min) 2 Oxygen Delivery Method Room Air Weight: 214 lb 11.684 oz Body Mass Index (BMI) 36.8 Intake and Output for Last 24 Hours 10/03/17 10/04/17 10/05/17 23:59 23:59 23:59 Intake Total 250 / 250 1722 / 1722 279 / 279 Output Total 950 / 950 1050 / 1050 300 / 300 Balance -700 / -700 672 / 672 -21 / -21 Laboratory Tests Past 24 Hrs 10/04/17 10/04/17 07:25 10:17 Immature Plt Fraction 1.7 Retic Count 1.29 Immature Retic Fraction 2.10 L Retic Hgb Equivalent 28.3 L Specimen Type ART Sample Site L Radial pH 7.47 H Bicarbonate Actual 24.7 POC Total CO2 26 Base Excess 1 O2 Saturation 96 ABG pCO2 33.6 L ABG pO2 73 L Feng Test NEG O2 Delivery Device Room Air Blood Gas Notified Whom [facility]OSP Blood Gas Notified Time 1015 POC Glucose 10/04/17 10:00 POC Glucose 143 H Medical Necessity - Tobacco Use Smoking Status: Never smoker Assessment/Plan All Active Problems Anxiety (Acute) Neuropathy (Acute) Right upper quadrant abdominal pain (Acute) Impressions 1. UTI - I have been told that she self cath's at home and I find it difficult to believe this 82 YO woman who is obviously non-compliant with meds and has poor judgement and poor memory self caths? 2. Hypertensive urgency - suspect due to non-compliance with meds. 3. On Gabapentin at a very high dose - neuropathy as etiology of the LE pain? This dose of Neurontin in an 82 YO could certainly be contributing to the AMS. 4. HTN 5. Microcytic anemia 6. Hyponatremia-on hydrochlorothiazide as an outpatient 7. Hypokalemia-likely due to diuretic....if she is taking it? it may be due to not eating. 8. HX of Heart disease per family 9. AMS - suspect due to infection, over medication? she is on high doses of Gabapentin and got Seroquel last night. 10. OA DC the HCTZ 500 cc NS bolus now CXR now DC the Labetalol and restart the Metoprolol NTG given. Loading dose of Plavix now and then 75 mg Daily in addition to the ASA DC the Seroquel and the Gabapentin for now ECHO in the AM Obtain records from [facility] Consult Dr. Villegas Supplemental O2 Code Visit Inpatient E&M: 90902 Subs Hosp L3
[2017-10-05 08:04] LABS: Absolute Lymphocyte Count 2.48 X10^3/ul (0.83-4.51); Absolute Neutrophil Count 10.8 X10^3/uL (2.0-7.7); Basophil# 0.02 X10^3/uL; Basophil% 0.1 % (0-1); Eosinophil# 0.15 X10^3/uL; Eosinophils% 1.1 % (0-5); Hematocrit 27.3 % (37-47); Hemoglobin 9.4 g/dl (12.0-15.0); Lymphocyte # 2.48 X10^3/ul (4.0); Lymphocyte % 17.4 % (19-41); Mean Corp Hgb Conc 34.4 g/gl (32-36); Mean Corpuscular Hgb 27.8 pg (27.0-32.0); Mean Corpuscular Volume 80.8 fL (81-99); Mean Platelet Vol. 8.7 fl (6.2-12.0); Monocyte# 0.77 X10^3/uL; Monocyte% 5.4 % (0-10); Neutrophil # 10.77 X10^3/uL (2.7-7.7); Neutrophil % 75.7 % (47-70); Platelet Count 304 K/mm3 (150-450); RBC Distribution Width CV 16.7 % (11.6-14.6); RBC Distribution Width SD 47.8 fl (35.1-43.9); Red Blood Count 3.38 M/mm3 (4.2-5.4); White Blood Count 14.2 K/mm3 (4.4-11.0)
[2017-10-05 08:08] LABS: POSITIVE COUNT NO; POSITIVE DIFFERENTIAL NO; POSITIVE MORPHOLOGY NO
[2017-10-05 08:29] LABS: Anion Gap 10 (5-15); BUN 16 mg/dL (7-18); Calcium,Total 8.5 mg/dL (8.5-10.1); Chloride 103 mmol/L (98-107); Creatinine, Serum 0.94 mg/dL (0.55-1.02); EST Glomerular Filtration Rate 61 mL/min (>60); Est Glom Filt Rate - Afr Amer 74 mL/min (>60); Estimated Creatinine Clearance 41.22 ml/min; Glucose 96 mg/dL (74-106); Potassium 3.9 mmol/L (3.5-5.1); Sodium Level 136 mmol/L (136-145)
[2017-10-05] MEDS: Ceftriaxone 1 GM/50 ML BAG IV (09:21)
[2017-10-05] MEDS: Pantoprazole Sodium 40 MG Tablet PO (09:21)
[2017-10-05] MEDS: amLODIPine 5 MG Tablet PO (09:21)
[2017-10-05] MEDS: Labetalol 200 MG Tablet 400 MG PO (09:21)
[2017-10-05] MEDS: Calcium Carb/Vitamin D 1 TABLET Tablet PO (09:21)
[2017-10-05] MEDS: Isosorbide Mononitrate 60 MG Tablet PO (09:21)
[2017-10-05] MEDS: Aspirin 325 MG Tablet PO (09:21)
[2017-10-05] MEDS: Lisinopril 10 MG Tablet PO (09:21)
--- NOTE | 2017-10-05 14:57 | CASEMGMT ---
REZA spoke with patient's niece, Ruth. Patient was still not able to participate in therapy today. Ivelisse said that [facility] would be okay or TCU. REZA told her SW can make referrals, but we won't be able to send her anywhere until she is able to participate in therapy and insurance approves. She verbalized understanding. SW to make a referral to [facility]. REZA called TCU and put patient's name on the list. REZA will also check with [facility]. Sneha SHARMA MSW
--- NOTE | 2017-10-05 15:45 | EKG12_ITS ---
Test Reason : CP Blood Pressure : / mmHG Vent. Rate : 067 BPM Atrial Rate : 067 BPM P-R Int : 154 ms QRS Dur : 104 ms QT Int : 424 ms P-R-T Axes : 034 017 188 degrees QTc Int : 448 ms Normal sinus rhythm T wave abnormality, consider inferior ischemia T wave abnormality, consider anterolateral ischemia Abnormal ECG When compared with ECG of 02-OCT-2017 20:54, Premature ventricular complexes are no longer Present T wave inversion more evident in Anterolateral leads Confirmed by MICHELLE BURTON ([id number]), communications editor JOCE KERN ([id number]) on 10/19/2017 7:46:25 PM Referred By: MICHELLE Confirmed By:MICHELLE BURTON
--- NOTE | 2017-10-05 16:06 | RAD_ITS ---
STUDY: X-RAY CHEST REASON FOR EXAM: Female, 82 years old. Shortness of breath TECHNIQUE: Single AP portable view of the chest. COMPARISON: 05/16/2016. FINDINGS: The lungs are expanded. Mild pulmonary vascular congestion. There is no demonstrated pleural abnormality. There is mild cardiac enlargement. Patient status post sternotomy. Normal mediastinum and [place]. Normal visualized pulmonary arteries. Normal visualized aortic arch and descending thoracic aorta. Normal visualized thoracic spine. Normal visualized ribs, clavicles, and shoulders. There is no demonstrated abnormality of the visualized soft tissue structures of the upper abdomen. RAD/Chest 1 View (Portable) IMPRESSION: CHF. No infiltrate. Electronically Signed: Eloy Huff DO at 20:42 EDT , Service support ,
--- NOTE | 2017-10-05 16:10 | EKG12_ITS ---
Test Reason : CP Blood Pressure : / mmHG Vent. Rate : 069 BPM Atrial Rate : 069 BPM P-R Int : 142 ms QRS Dur : 108 ms QT Int : 416 ms P-R-T Axes : 030 013 194 degrees QTc Int : 445 ms Normal sinus rhythm T wave abnormality, consider inferior ischemia T wave abnormality, consider anterolateral ischemia Abnormal ECG When compared with ECG of 05-OCT-2017 15:31, MANUAL COMPARISON REQUIRED, DATA IS UNCONFIRMED Confirmed by MICHELLE BURTON ([id number]), industrial editor JOCE KERN ([id number]) on 10/19/2017 7:46:36 PM Referred By: MICHELLE Confirmed By:MICHELLE BURTON
--- NOTE | 2017-10-05 16:20 | EKG12_ITS ---
Test Reason : CP Blood Pressure : / mmHG Vent. Rate : 072 BPM Atrial Rate : 072 BPM P-R Int : 156 ms QRS Dur : 084 ms QT Int : 408 ms P-R-T Axes : 035 015 188 degrees QTc Int : 446 ms Normal sinus rhythm ST & T wave abnormality, consider inferior ischemia ST & T wave abnormality, consider anterolateral ischemia Abnormal ECG When compared with ECG of 05-OCT-2017 16:07, MANUAL COMPARISON REQUIRED, DATA IS UNCONFIRMED Confirmed by MICHELLE BURTON ([id number]), web content editor JOCE KERN ([id number]) on 10/19/2017 7:46:48 PM Referred By: MICHELLE Confirmed By:MICHELLE BURTON
[2017-10-05] MEDS: 0.9% NaCl Peripheral Flush Adult/Peds IV (16:22)
[2017-10-05] MEDS: Clopidogrel Bisulfate 300 MG Tablet PO (16:48)
--- NOTE | 2017-10-05 17:12 | EKG12_ITS ---
Test Reason : CP Blood Pressure : / mmHG Vent. Rate : 072 BPM Atrial Rate : 072 BPM P-R Int : 146 ms QRS Dur : 100 ms QT Int : 414 ms P-R-T Axes : 035 010 195 degrees QTc Int : 453 ms Normal sinus rhythm T wave abnormality, consider anterolateral ischemia Abnormal ECG When compared with ECG of 05-OCT-2017 16:18, MANUAL COMPARISON REQUIRED, DATA IS UNCONFIRMED Confirmed by MICHELLE BURTON ([id number]), business editor JOCE KERN ([id number]) on 10/19/2017 7:46:59 PM Referred By: MICHELLE Confirmed By:MICHELLE BURTON
[2017-10-05 17:37] LABS: BNP,B-Type NATRIURETIC PEPTIDE 36.7 pg/mL (0-100)
[2017-10-05] MEDS: Metoprolol Tartrate 25 MG Tablet 12.5 MG PO (17:52)
[2017-10-05] MEDS: Morphine 4 MG/ML Syringe 2 MG IV (17:53)
[2017-10-05] MEDS: Pravastatin 20 MG Tablet PO (22:00)
--- NOTE | 2017-10-05 22:19 | NURSING ---
was unable to successfully straight cath patient. obtained ordered from doctor to insert cotto and leave in patient.
[2017-10-05 23:08] LABS: Urine Sodium 28 mmol/L (Not Establ.)
[2017-10-06] VITALS (34 sets, daily range): BP systolic 139–177; BP diastolic 62–91; PULSE 75–105; RESP 18–25; TEMP 37.1–37.7; O2SAT 95–100
[2017-10-06 05:36] LABS: Absolute Lymphocyte Count 1.71 X10^3/ul (0.83-4.51); Absolute Neutrophil Count 9.4 X10^3/uL (2.0-7.7); Basophil# 0.02 X10^3/uL; Basophil% 0.2 % (0-1); Eosinophil# 0.31 X10^3/uL; Eosinophils% 2.5 % (0-5); Hematocrit 28.1 % (37-47); Hemoglobin 9.4 g/dl (12.0-15.0); Lymphocyte # 1.71 X10^3/ul (4.0); Lymphocyte % 13.9 % (19-41); Mean Corp Hgb Conc 33.5 g/gl (32-36); Mean Corpuscular Volume 80.7 fL (81-99); Mean Platelet Vol. 8.9 fl (6.2-12.0); Monocyte# 0.84 X10^3/uL; Monocyte% 6.8 % (0-10); Neutrophil # 9.36 X10^3/uL (2.7-7.7); Neutrophil % 76.3 % (47-70); POSITIVE COUNT NO; POSITIVE DIFFERENTIAL NO; POSITIVE MORPHOLOGY NO; Platelet Count 337 K/mm3 (150-450); RBC Distribution Width CV 16.5 % (11.6-14.6); RBC Distribution Width SD 47.6 fl (35.1-43.9); Red Blood Count 3.48 M/mm3 (4.2-5.4); White Blood Count 12.3 K/mm3 (4.4-11.0)
[2017-10-06 05:42] LABS: International Normalized Ratio 1.1; Prothrombin Time (Protime)PT. 13.7 SECONDS (11.7-14.9)
[2017-10-06 05:43] LABS: Partial Thromboplast Time 39.4 Seconds (24.1-36.2)
--- NOTE | 2017-10-06 05:55 | EKG12_ITS ---
Test Reason : AM EKG Blood Pressure : / mmHG Vent. Rate : 083 BPM Atrial Rate : 083 BPM P-R Int : 154 ms QRS Dur : 092 ms QT Int : 354 ms P-R-T Axes : 052 013 212 degrees QTc Int : 415 ms Sinus rhythm with occasional Premature ventricular complexes ST & T wave abnormality, consider inferior ischemia ST & T wave abnormality, consider anterolateral ischemia Abnormal ECG When compared with ECG of 05-OCT-2017 17:17, MANUAL COMPARISON REQUIRED, DATA IS UNCONFIRMED Confirmed by MICHELLE BURTON ([id number]), editorial writer JOCE KERN ([id number]) on 10/19/2017 7:47:50 PM Referred By: ANGEL Confirmed By:MICHELLE BURTON
[2017-10-06 06:03] LABS: ALB/GLOB Ratio 0.6 RATIO (0.9-2.4); AST(SGOT) 28 U/L (15-37); Alanine Aminotransfer ALT/SGPT 20 U/L (13-56); Albumin, Serum 2.6 g/dL (3.2-5.0); Alkaline Phosphatase 76 U/L (45-117); Anion Gap 10 (5-15); BUN 18 mg/dL (7-18); BUN/Creat Ratio 19.3 RATIO (10-20); Calcium,Total 8.5 mg/dL (8.5-10.1); Chloride 104 mmol/L (98-107); Cholesterol 193 mg/dL (200); Creatinine, Serum 0.93 mg/dL (0.55-1.02); EST Glomerular Filtration Rate 62 mL/min (>60); Est Glom Filt Rate - Afr Amer 74 mL/min (>60); Estimated Creatinine Clearance 41.66 ml/min; Globulin 4.1 g/dL (2.2-4.2); Glucose 112 mg/dL (74-106); High Density Lipoprotein 69 mg/dL; Magnesium 1.9 mg/dL (1.6-2.6); Phosphorus 2.5 mg/dL (2.5-4.9); Potassium 3.8 mmol/L (3.5-5.1); Protein, Total 6.7 g/dL (6.4-8.2); Sodium Level 137 mmol/L (136-145); Triglycerides 110 mg/dL; Very Low Density Lipoprotein 22 mg/dL (5-40)
[2017-10-06] MEDS: 0.9% NaCl Peripheral Flush Adult/Peds IV ×2 (06:18→13:50)
[2017-10-06] MEDS: hydrALAZINE 20 MG/ML Vial IV ×2 (06:18→13:50)
--- NOTE | 2017-10-06 08:23 | ECHOCS_ITS ---
Reason For Study: CAD Procedure This was a 2D Doppler, Color Flow transthoracic echocardiogram. The study was technically difficult. Patient unable to move. Exam performed portable in patient room. Left Ventricle Normal size and thickness. The estimated ejection fraction is 75 %. Stage 1 diastolic dysfunction. No regional wall motion abnormalities noted. Right Ventricle Normal size and thickness. Normal systolic function. Atria Normal left atrium. Normal right atrium. Normal atrial septum. Mitral Valve The mitral valve is structurally normal. No prolapse or stenosis seen. Tricuspid Valve Normal tricuspid valve. Unable to estimate RV systolic pressure due to inadequate jet, pulmonary artery pressure probably normal. Aortic Valve Trisinus/trileaflet aortic valve. Mild focal aortic valve thickening. Mild aortic stenosis. Pulmonic Valve Normal pulmonic valve. Great Vessels Normal aortic root. Normal arch. Normal inferior vena cava. Inferior vena cava collapse with sniff. Pericardium/Pleural No pericardial effusion. MMode/2D Measurements & Calculations LVOT diam: 2.0 cm Ao root diam: 3.1 cm LAV(MOD-sp2): 34.6 ml LVOT area: 3.2 cm2 LA dimension: 3.5 cm Doppler Measurements & Calculations MV E max leonides: 80.3 cm/sec Lat Peak E' Leonides: 7.2 cm/sec Med Peak E' Leonides: 2.6 cm/sec MV A max leonides: 108.0 cm/sec E/E' lat: 11.1 E/E' med: 31.1 MV E/A: 0.74 Ao V2 max: 222.0 cm/sec LV V1 max: 140.5 cm/sec SV(LVOT): 79.6 ml Ao max P.8 mmHg LV V1 max P.9 mmHg Ao V2 mean: 152.6 cm/sec LV V1 mean P.8 mmHg Ao mean P.3 mmHg LV V1 mean: 105.0 cm/sec Ao V2 VTI: 33.1 cm LV V1 VTI: 25.1 cm KEESHA(I,D): 2.4 cm2 KEESHA(V,D): 2.0 cm2 PA V2 max: 134.8 cm/sec Interpretation Summary The estimated ejection fraction is 75 %. Stage 1 diastolic dysfunction. Unable to estimate RV systolic pressure due to inadequate jet, pulmonary artery pressure probably normal. Mild aortic stenosis. Compared to echo report dated 06/26/2013, LV function has improved from 60% to 75%. Unable to quantitate RVSP on today's study. Ordering Physician: William Villegas Referring Physician: Regi Aguilar M.D. Performed By: Deborah Powers RDCS
[2017-10-06] MEDS: Metoprolol Tartrate 25 MG Tablet 12.5 MG PO (08:59)
[2017-10-06] MEDS: Aspirin 325 MG Tablet PO (08:59)
[2017-10-06] MEDS: Pantoprazole Sodium 40 MG Tablet PO (09:01)
[2017-10-06] MEDS: Clopidogrel Bisulfate 75 MG Tablet PO (09:01)
[2017-10-06] MEDS: amLODIPine 5 MG Tablet PO (09:01)
[2017-10-06] MEDS: Ceftriaxone 1 GM/50 ML BAG IV (09:01)
[2017-10-06] MEDS: Lisinopril 10 MG Tablet PO (09:01)
[2017-10-06] MEDS: Calcium Carb/Vitamin D 1 TABLET Tablet PO (09:01)
[2017-10-06 09:29] LABS: ANTINUCLEAR ANTIBODIES DIRECT Negative (Negative)
--- NOTE | 2017-10-06 10:22 | PCM.CONS.C ---
Problem List (1) Coronary artery disease Status: Acute (2) HTN (hypertension) Status: Chronic Reason for Consult Date of Consultation: 10/06/17 Reason for Consultation: Chest pain, abnormal EKG, hypertension, History of Present Illness: The patient is a 82 year old F, poor historian, recently seen in the ER with right hip pain, x-rays were negative and the patient was sent home on tramadol. She then returned with mental status changes, lethargy, and underwent a CT scan of her head yesterday which showed chronic involutional changes. She was found to have a urinary tract infection and was admitted for UTI management. Late yesterday evening the patient developed substernal chest pain with evidence of dynamic anterior T-wave inversion. Patient was given sublingual nitroglycerin and her pain resolved. Telemetry overnight has been normal sinus rhythm. EKG this morning shows normal sinus rhythm with remaining T-wave inversion. Echocardiogram is pending. The patient's mental status is somewhat limited and her history is somewhat difficult. It also appears that she may have some weakness in her left upper extremity which I made Dr. chica Aquino aware. I reviewed her CAT scan from the other day which showed no acute bleed. On further history she states that she had a myocardial infarction in 2007 at [facility] and underwent angioplasty. She apparently follows up with Dr. Bocanegra. In addition she has a heavy alcohol use quit around 10 years ago after drinking 1/5 of whiskey every day for many years. She has not had a stress test in some time. Past Medical History Allergies/Adverse Reactions: Allergies cortisone [Cortisone] Allergy (Verified 09/28/17 11:31) Swelling Penicillins Allergy (Verified 09/28/17 11:31) Swelling sulfamethoxazole [From Bactrim] Allergy (Verified 09/28/17 11:31) Swelling trimethoprim [From Bactrim] Allergy (Verified 09/28/17 11:31) Swelling Home Medications: Ambulatory Orders Medication Instructions Recorded Calcium Carbonate/Vitamin D3 1 each PO DAILY 06/25/13 [Calcium 600-Vit D3 400 Tablet] Gabapentin 1,200 mg PO Q8 06/25/13 Glucosamine Sulfate Dipot Chlr 500 mg PO DAILY 06/25/13 [Glucosamine Relief] Hydrochlorothiazide 25 mg PO DAILY 06/25/13 Lisinopril 10 mg PO DAILY 06/25/13 Metoprolol Tartrate 12.5 mg PO DAILY 06/25/13 Aspirin 325 mg PO DAILY@0800 #30 tablet 06/27/13 Pantoprazole Sodium [Protonix] 40 mg PO DAILY 06/27/13 Pravastatin [Pravachol] 20 mg PO QHS #30 tablet 06/27/13 Metronidazole [Flagyl] 500 mg PO Q8H #15 tablet 08/29/14 levoFLOXacin tablet [Levaquin] 500 mg PO DAILY #5 tablet 08/29/14 Docusate Sodium [Colace] 100 mg PO DAILY #20 capsule 03/28/16 Nitrofurantoin Macrocrystals 100 mg PO Q12 #14 capsule 04/03/16 [Macrobid] traMADol [Ultram] 50 mg PO Q6H PRN PRN 3 Days #12 tab 09/28/17 Past Medical History (Chronic Problems): Chronic Problems HTN (hypertension) (Chronic) Surgical History: appendectomy, coronary bypass surgery, - - Appendectomy partial hysterectomy coronary artery bypass surgery, salpingectomy Psychiatric History: No pertinent psych hx [employer] History: No pertinent [employer] history - *Family History Maternal History Items: Cancer Paternal History Items: No pertinent history Sibling History Items: Diabetes Smoking Status: Never smoker Review of Systems - Review of Systems General: Denies: Fever, Night Sweats, Fatigue Cardiovascular: Reports: Chest Discomfort, Chest Discomfort at Rest. Denies: Shortness of Breath, Orthopnea, PND, Peripheral Edema, Palpitations, Lightheadedness, Dizziness, Near Syncope, Syncope Respiratory: Denies: Cough, Sputum Production, Hemoptysis Gastrointestinal: Denies: Hematemesis, Hematochezia, Melena Genitourinary: Denies: Dysuria, Hematuria Skin: Denies: Rash Subjectve: Patient laying in bed, no acute distress. Objective: Vital Signs Temp Pulse Resp BP Pulse Ox 99.1 F 78 20 H 148/77 H 99 10/06/17 10:00 10/06/17 10:00 10/06/17 10:00 10/06/17 10:10/06/17 10:00 Oxygen Flow Rate (L/min) 2 Oxygen Delivery Method Room Air Weight: 214 lb 11.684 oz Body Mass Index (BMI) 36.8 Intake and Output for Last 24 Hours 10/04/17 10/05/17 10/06/17 23:59 23:59 23:59 Intake Total 1722 / 1722 1242 / 1242 73.9 / 73.9 Output Total 1050 / 1050 475 / 475 250 / 250 Balance 672 / 672 767 / 767 -176.1 / -176.1 General: Awake, Alert, Oriented x 3 HEENT: PERRL, EOMI, Sclera Non Icteric Neck: Supple, Good ROM, No Lymph Node Enlargement Lungs: Clear to auscultation Cardiovascular: Regular Rhythm, Normal S1, Normal S2, No Murmurs, No Rubs, No Gallops Vascular: No Carotid Bruits, Normal Femoral Pulses, Normal Radial Pulses, Normal Dorsalis Pedal Pulse, Normal Posterior Tibial Pulses Abdomen: Bowel Sounds Present, Soft, Non Tender, No HSM, No Organomegaly Extremities: No Cyanosis, No Clubbing, No edema Neurological: No Focal Motor or Sensory Deficit 10/05/17 07:50: B-Natriuretic Peptide 36.7 10/05/17 16:44: Troponin I 0.053 H 10/05/17 19:14: Troponin I 0.076 H 10/05/17 22:05: Troponin I 0.108 H 10/06/17 05:20: WBC 12.3 H, RBC 3.48 L, Hgb 9.4 L, Hct 28.1 L, MCV 80.7 L, MCH 27.0, MCHC 33.5, RDW 16.5 H, RDW Differential 47.6 H, Plt Count 337, MPV 8.9, Immature Gran % (Auto) 0.300, Neut % (Auto) 76.3 H, Lymph % (Auto) 13.9 L, [place] % (Auto) 6.8, Eos % (Auto) 2.5, Baso % (Auto) 0.2, Absolute Neuts (auto) 9.4 H, Total Counted Not Reportable 10/06/17 05:20: Sodium 137, Potassium 3.8, Chloride 104, Carbon Dioxide 23.0, Anion Gap 10, BUN 18, Creatinine 0.93, Est GFR (MDRD) Af Amer 74, Est GFR (MDRD) Non-Af 62, BUN/Creatinine Ratio 19.3, Glucose 112 H, Calcium 8.5, Phosphorus 2.5, Magnesium 1.9, Total Bilirubin 0.40, Triglycerides 110, Cholesterol 193, LDL Cholesterol 102, VLDL Cholesterol 22, HDL Cholesterol 69 10/06/17 05:20: PT 13.7, INR 1.1, APTT 39.4 H Rhythm: EKG: As above ECHO: Pending Stress Test: Cardiac Cath: PCI: CT Surgery: Holter monitor: EPS: PPM: CXR: Chest CT Scan: Assessment/Plan 1. Chest pain: The patient has a history supposedly of coronary disease status post angioplasty about 10 years ago at [facility] although I do not have those records from Dr. Bocanegra's office. The patient had recurrent substernal chest pain yesterday in the face of a urinary tract infection with dynamic anterior lateral T-wave inversion. Her troponins are 0.108 after the second troponin, and third troponin is pending. Recommend baby aspirin, and antihypertensive medications as outlined in the MRF. In addition the patient was loaded with Plavix 3 mg ?1 last evening and 75 mg p.o. daily. Recommend continuing baby aspirin and Plavix. Her echocardiogram is pending. Depending upon the outcome of the echocardiogram patient may require diagnostic coronary angiogram given her history of coronary artery disease. Would recommend obtaining the records from Dr. Bocanegra's office regarding her previous coronary issues. It is possible the patient may have Takostubos cardiomyopathy given her hip pain and recent urinary tract infection. If the patient has significant LV dysfunction she may require repeat catheterization. 2. Hyperlipidemia: Her LDL is 102, and HDL 69. Continue Pravachol therapy. 3. I discussed the patient's mental status issues with Dr. borges her primary hospitalist as well as her weakness in her left upper extremity. Prior to any catheterization she may require either repeat CT scan or perhaps a MRI to determine if she has had a stroke to explain her mental status changes. Code Visit Inpatient E&M: 88298 Init Hosp L2
--- NOTE | 2017-10-06 12:59 | CASEMGMT ---
REZA spoke with Eileen in TCU and they are able to take patient at this time. Patient has not been able to fully participate in therapy due to lethargy. Therefore, will not be able to obtain insurance authorization at this time. Plan: TCU vs [facility] pending insurance. Sneha SHARMA FINE GRADER
[2017-10-06] MEDS: Acetaminophen 325 MG Tablet 650 MG PO (13:50)
[2017-10-06] MEDS: Nitroglycerin Oint 1 INCH PACKET TRANSDERM. ×2 (16:48→22:05)
[2017-10-06] MEDS: Gabapentin 100 MG Capsule 200 MG PO (16:48)
[2017-10-06] MEDS: Acetaminophen 500 MG Tablet 1000 MG PO (17:52)
--- NOTE | 2017-10-06 20:20 | PCM.PROGNOTE ---
Subjective: She is alert and appropriate today. She is able to answer my questions and follow commands. she is c/o pain in her legs today. Denies CP or SOB. History on this woman is difficult to obtain. I spoke with her niece and apparently although she has been living on her own she has had progressive problems with memory and she has not been fine as reported by family yesterday. It is clear that she should not be living by herself. She has no complaints other than leg pain. Objective: Patient is alert but speech is still slurred and difficult for me to understand. Current heart rate is 70-80 bpm and she is in normal sinus rhythm. Current blood pressure is 108 systolic. She was 97% saturated on room air earlier today. Mucous Membranes are dry. There is no JVD. Lungs- good air exchange with deep breaths. No rales and no wheezes were heard. Breath sounds are diminished in the bases. There is symmetric chest rise. She has no accessory muscle use. Heart-regular rate and rhythm, no murmur, no gallop, no rub, normal S1, normal S2 Abdomen-obese, soft, nontender, nondistended, bowel sounds present, no guarding with palpation No peripheral edema, no calf tenderness, peripheral pulses are diminished, no clubbing - Physical Exam General: - Vital Signs Temp Pulse Resp BP Pulse Ox 99.8 F H 96 22 H 175/68 H 100 10/06/17 16:00 10/06/17 17:00 10/06/17 17:00 10/06/17 17:00 10/06/17 17:00 Oxygen Flow Rate (L/min) 3 Oxygen Delivery Method Room Air Weight: 214 lb 11.684 oz Body Mass Index (BMI) 36.8 Intake and Output for Last 24 Hours 10/04/17 10/05/17 10/06/17 23:59 23:59 23:59 Intake Total 1722 / 1722 1242 / 1242 593.5 / 593.5 Output Total 1050 / 1050 475 / 475 775 / 775 Balance 672 / 672 767 / 767 -181.5 / -181.5 Microbiology Past 72 Hours 10/03/17 23:25 Urine Culture - Final Urine, Clean Catch Presumptive E. coli Laboratory Tests Past 24 Hrs 10/03/17 10/05/17 10/05/17 19:54 22:05 22:30 WBC RBC Hgb Hct MCV MCH MCHC RDW RDW Differential Plt Count MPV Immature Gran % (Auto) Neut % (Auto) Lymph % (Auto) [place] % (Auto) Eos % (Auto) Baso % (Auto) Absolute Neuts (auto) Absolute Lymphs (auto) Total Counted PT INR APTT Sodium Potassium Chloride Carbon Dioxide Anion Gap BUN Creatinine Estim Creat Clear Calc Est GFR (MDRD) Af Amer Est GFR (MDRD) Non-Af BUN/Creatinine Ratio Glucose Calcium Phosphorus Magnesium Total Bilirubin AST ALT Alkaline Phosphatase Troponin I 0.108 H Total Protein Albumin Globulin Albumin/Globulin Ratio Triglycerides Cholesterol LDL Cholesterol VLDL Cholesterol HDL Cholesterol Ur Random Sodium Urine Creatinine 242.00 SANDIE Screen Negative TAMMY-1 Antibody Not Reportable SS-A/Ro IgG Antibody Not Reportable SS-B/La IgG Antibody Not Reportable Sm ([place]ider) Antibody Not Reportable MATERIALS PLANNER/PRODUCTION PLANNER Antibody Not Reportable Scl-70 Scleroderma Ab Not Reportable Double Strand DNA Ab Not Reportable Centromere B Antibody Not Reportable 10/05/17 10/06/17 10/06/17 22:30 05:20 05:20 WBC 12.3 H RBC 3.48 L Hgb 9.4 L Hct 28.1 L MCV 80.7 L MCH 27.0 MCHC 33.5 RDW 16.5 H RDW Differential 47.6 H Plt Count 337 MPV 8.9 Immature Gran % (Auto) 0.300 Neut % (Auto) 76.3 H Lymph % (Auto) 13.9 L [place] % (Auto) 6.8 Eos % (Auto) 2.5 Baso % (Auto) 0.2 Absolute Neuts (auto) 9.4 H Absolute Lymphs (auto) 1.71 Total Counted Not Reportable PT INR APTT Sodium 137 Potassium 3.8 Chloride 104 Carbon Dioxide 23.0 Anion Gap 10 BUN 18 Creatinine 0.93 Estim Creat Clear Calc 41.66 Est GFR (MDRD) Af Amer 74 Est GFR (MDRD) Non-Af 62 BUN/Creatinine Ratio 19.3 Glucose 112 H Calcium 8.5 Phosphorus 2.5 Magnesium 1.9 Total Bilirubin 0.40 AST 28 ALT 20 Alkaline Phosphatase 76 Troponin I Total Protein 6.7 Albumin 2.6 L Globulin 4.1 Albumin/Globulin Ratio 0.6 L Triglycerides 110 Cholesterol 193 LDL Cholesterol 102 VLDL Cholesterol 22 HDL Cholesterol 69 Ur Random Sodium 28 Urine Creatinine SANDIE Screen TAMMY-1 Antibody SS-A/Ro IgG Antibody SS-B/La IgG Antibody Sm (Haider) Antibody MATERIALS PLANNER/PRODUCTION PLANNER Antibody Scl-70 Scleroderma Ab Double Strand DNA Ab Centromere B Antibody 10/06/17 05:20 WBC RBC Hgb Hct MCV MCH MCHC RDW RDW Differential Plt Count MPV Immature Gran % (Auto) Neut % (Auto) Lymph % (Auto) [place] % (Auto) Eos % (Auto) Baso % (Auto) Absolute Neuts (auto) Absolute Lymphs (auto) Total Counted PT 13.7 INR 1.1 APTT 39.4 H Sodium Potassium Chloride Carbon Dioxide Anion Gap BUN Creatinine Estim Creat Clear Calc Est GFR (MDRD) Af Amer Est GFR (MDRD) Non-Af BUN/Creatinine Ratio Glucose Calcium Phosphorus Magnesium Total Bilirubin AST ALT Alkaline Phosphatase Troponin I Total Protein Albumin Globulin Albumin/Globulin Ratio Triglycerides Cholesterol LDL Cholesterol VLDL Cholesterol HDL Cholesterol Ur Random Sodium Urine Creatinine SANDIE Screen TAMMY-1 Antibody SS-A/Ro IgG Antibody SS-B/La IgG Antibody Sm ([place]ider) Antibody MATERIALS PLANNER/PRODUCTION PLANNER Antibody Scl-70 Scleroderma Ab Double Strand DNA Ab Centromere B Antibody Medical Necessity - Tobacco Use Smoking Status: Never smoker Assessment/Plan All Active Problems Hypertensive urgency (Acute) Hyponatremia (Acute) Right hip pain (Acute) Generalized weakness (Acute) Acute kidney injury (Acute) Encephalopathy acute (Acute) Debility (Acute) Impressions 1. UTI - I have been told that she self cath's at home and I find it difficult to believe this 82 YO woman who is obviously non-compliant with meds and has poor judgement and poor memory self caths? 2. Hypertensive urgency - suspect due to non-compliance with meds. 3. On Gabapentin at a very high dose - neuropathy as etiology of the LE pain? This dose of Neurontin in an 82 YO could certainly be contributing to the AMS. 4. HTN 5. Microcytic anemia 6. Hyponatremia-on hydrochlorothiazide as an outpatient 7. Hypokalemia-likely due to diuretic....if she is taking it? it may be due to not eating. 8. HX of Heart disease per family 9. AMS - suspect due to infection, over medication? she is on high doses of Gabapentin and got Seroquel last night. 10. OA Will plan on SNF at [place] and will likely need life long placement....family is agreeable PT/OT Continue current medication orders Code Visit Inpatient E&M: 02336 Subs Hosp L2
[2017-10-06] MEDS: amLODIPine 10 MG Tablet PO (21:58)
[2017-10-06] MEDS: 0.9% Normal Saline 1,000 ML 75 ML IV (22:01)
[2017-10-06] MEDS: Metoprolol Tartrate 50 MG Tablet PO (22:03)
[2017-10-06] MEDS: Docusate Sodium 100 MG Capsule PO (22:04)
[2017-10-06] MEDS: Gabapentin 400 MG Capsule PO (22:05)
[2017-10-06] MEDS: Pravastatin 20 MG Tablet PO (22:06)
[2017-10-06] MEDS: Senna Tablet 2 TABLET PO (22:06)
[2017-10-07] VITALS (12 sets, daily range): BP systolic 152–195; BP diastolic 71–81; PULSE 77–101; RESP 16–20; TEMP 36.8–37.2; O2SAT 97–99
[2017-10-07] MEDS: 0.9% NaCl Peripheral Flush Adult/Peds IV ×2 (04:01→10:55)
[2017-10-07] MEDS: hydrALAZINE 20 MG/ML Vial IV (04:01)
[2017-10-07 05:06] LABS: Rapid Plasmin Reagin (RPR) NONREACTIVE (NONREACTIVE)
[2017-10-07] MEDS: Acetaminophen 500 MG Tablet 1000 MG PO ×2 (06:29→14:33)
[2017-10-07 06:34] LABS: Absolute Lymphocyte Count 1.62 X10^3/ul (0.83-4.51); Absolute Neutrophil Count 8.2 X10^3/uL (2.0-7.7); Basophil# 0.03 X10^3/uL; Basophil% 0.3 % (0-1); Eosinophil# 0.14 X10^3/uL; Eosinophils% 1.3 % (0-5); Hematocrit 32.1 % (37-47); Hemoglobin 10.9 g/dl (12.0-15.0); Lymphocyte # 1.62 X10^3/ul (4.0); Lymphocyte % 14.9 % (19-41); Mean Corpuscular Volume 79.7 fL (81-99); Mean Platelet Vol. 9.3 fl (6.2-12.0); Monocyte% 8.3 % (0-10); Neutrophil # 8.16 X10^3/uL (2.7-7.7); Neutrophil % 74.7 % (47-70); Platelet Count 467 K/mm3 (150-450); RBC Distribution Width CV 16.4 % (11.6-14.6); RBC Distribution Width SD 46.4 fl (35.1-43.9); Red Blood Count 4.03 M/mm3 (4.2-5.4); White Blood Count 10.9 K/mm3 (4.4-11.0)
[2017-10-07 06:35] LABS: POSITIVE COUNT NO; POSITIVE DIFFERENTIAL NO; POSITIVE MORPHOLOGY NO
[2017-10-07 06:36] LABS: Prothrombin Time (Protime)PT. 13.5 SECONDS (11.7-14.9)
[2017-10-07 06:37] LABS: Partial Thromboplast Time 36.6 Seconds (24.1-36.2)
[2017-10-07 07:01] LABS: Anion Gap 10 (5-15); BUN 10 mg/dL (7-18); BUN/Creat Ratio 16.6 RATIO (10-20); Calcium,Total 8.8 mg/dL (8.5-10.1); Chloride 103 mmol/L (98-107); EST Glomerular Filtration Rate 102 mL/min (>60); Est Glom Filt Rate - Afr Amer 123 mL/min (>60); Estimated Creatinine Clearance 38.75 ml/min; Glucose 104 mg/dL (74-106); Magnesium 1.9 mg/dL (1.6-2.6); Potassium 3.7 mmol/L (3.5-5.1); Sodium Level 133 mmol/L (136-145)
[2017-10-07] MEDS: Aspirin 325 MG Tablet PO (08:30)
[2017-10-07] MEDS: Gabapentin 300 MG Capsule PO ×2 (08:31→17:26)
[2017-10-07] MEDS: Metoprolol Tartrate 50 MG Tablet PO (08:32)
[2017-10-07] MEDS: amLODIPine 10 MG Tablet PO (08:32)
[2017-10-07] MEDS: Calcium Carb/Vitamin D 1 TABLET Tablet PO (08:32)
[2017-10-07] MEDS: Pantoprazole Sodium 40 MG Tablet PO (08:32)
[2017-10-07] MEDS: Clopidogrel Bisulfate 75 MG Tablet PO (08:32)
[2017-10-07] MEDS: Lisinopril 10 MG Tablet PO (08:33)
[2017-10-07] MEDS: Ceftriaxone 1 GM/50 ML BAG IV (08:38)
--- NOTE | 2017-10-07 08:58 | STEWCON_ITS ---
Reason For Study: CHEST PAIN Stress Results Protocol: Dobutamine Maximum Predicted HR: 140 bpm Target HR: 119 bpm% Maximum Predicted HR: 71 % DurationHeart Rate Stage (mm:ss) (bpm) BPDos eComment BASELINE 76 169/75 3CC DEFINITY STAGE 1 3:45 74 160/7610.001 CC DEFINITY STAGE 2 3:00 85 145/8320.00 STAGE 3 3:00 96 124/5430.000.5 MG ATROPINE STAGE 4 5:41 10 0 101/4840.000.5 MG ATROPINE/ 1 CC DEFINITY RECOVERY 88 113/52 Stress Duration: 15:26 mm:ss Maximum Stress HR: 100 bpm Baseline Echocardiogram Findings The estimated ejection fraction is 70 %. Stress Echo Wall motion Data Resting WMIntermediate WMStress WM Resting Wall Motion Wall Motion Stress No regional wall motion No regional wall motion abnormalities noted. abnormalities noted. EKG Data Normal intervals are noted. The patient was titrated from 10 mcg to a maximum of 40 mcg of dobutamine during the stress. The maximum heart rate attained was 100 beats per minute. This was 85% of maximum predicted heart rate. At peak infusion, upsloping ST changes only were noted, which did not meet the criteria for ischemia. No clinical angina was noted. Interpretation Summary The study was technically difficult. Contrast injection was performed. The estimated ejection fraction is 70 %. Normal, adequate, dobutamine echocardiogram. Negative for ischemia by EKG and echocardiographic criteria. No anginal symptoms noted. Rare PVC noted. Appropriate blood pressure response to dobutamine. Final LVEF of 75%. No complications. Doppler Measurements & Calculations TR max leola: 324.8 cm/sec TR max P.2 mmHg Ordering Physician: William Villegas Referring Physician: William Villegas MD Performed By: Lien Calvin, CAITLYN, RVT
--- NOTE | 2017-10-07 10:17 | PCM.PN.CARD ---
Subjectve: Patient much more lucid today, but still with some confusion. No chest pain overnight. Objective: Vital Signs Temp Pulse Resp BP Pulse Ox 99.0 F 100 19 H 162/77 H 99 10/07/17 08:30 10/07/17 08:32 10/07/17 08:30 10/07/17 08:30 10/07/17 08:30 Oxygen Flow Rate (L/min) 3 Oxygen Delivery Method Room Air Weight: 214 lb 11.684 oz Body Mass Index (BMI) 36.8 Intake and Output for Last 24 Hours 10/05/17 10/06/17 10/07/17 23:59 23:59 23:59 Intake Total 1242 / 1242 986.5 / 986.5 403 / 403 Output Total 475 / 475 1125 / 1125 650 / 650 Balance 767 / 767 -138.5 / -138.5 -247 / -247 General: Awake, Alert, Oriented x 3 HEENT: PERRL, EOMI, Sclera Non Icteric Neck: Supple, Good ROM, No Lymph Node Enlargement Lungs: Clear to auscultation Cardiovascular: Regular Rhythm, Normal S1, Normal S2, No Murmurs, No Rubs, No Gallops Vascular: No Carotid Bruits, Normal Femoral Pulses, Normal Radial Pulses, Normal Dorsalis Pedal Pulse, Normal Posterior Tibial Pulses Abdomen: Bowel Sounds Present, Soft, Non Tender, No HSM, No Organomegaly Extremities: No Cyanosis, No Clubbing, No edema Neurological: No Focal Motor or Sensory Deficit 10/07/17 05:45: WBC 10.9, RBC 4.03 L, Hgb 10.9 L, Hct 32.1 L, MCV 79.7 L, MCH 27.0, MCHC 34.0, RDW 16.4 H, RDW Differential 46.4 H, Plt Count 467 H, MPV 9.3, Immature Gran % (Auto) 0.500, Neut % (Auto) 74.7 H, Lymph % (Auto) 14.9 L, [place] % (Auto) 8.3, Eos % (Auto) 1.3, Baso % (Auto) 0.3, Absolute Neuts (auto) 8.2 H, Total Counted Not Reportable 10/07/17 05:45: Sodium 133 L, Potassium 3.7, Chloride 103, Carbon Dioxide 20.0 L, Anion Gap 10, BUN 10, Creatinine 0.60, Est GFR (MDRD) Af Amer 123, Est GFR (MDRD) Non-Af 102, BUN/Creatinine Ratio 16.6, Glucose 104, Calcium 8.8, Magnesium 1.9 10/07/17 05:45: PT 13.5, INR 1.0, APTT 36.6 H 10/07/17 05:45: Troponin I 0.078 H Rhythm: EKG: Telemetry normal sinus rhythm. ECHO: Stress Test: Cardiac Cath: PCI: CT Surgery: Holter monitor: EPS: PPM: CXR: Chest CT Scan: Medical Necessity - Tobacco Use Smoking Status: Never smoker Assessment/Plan 1. Chest pain: The patient has a history supposedly of coronary disease status post angioplasty about 10 years ago at [facility] although I do not have those records from Dr. Bocanegra's office. The patient had recurrent substernal chest pain yesterday in the face of a urinary tract infection with dynamic anterior lateral T-wave inversion. Her troponins are 0.108 after the second troponin, and third troponin decreased to 0.078. She has had no further chest pain. Recommend baby aspirin, and antihypertensive medications as outlined in the MRF. Patient was loaded with Plavix, and continues on baby aspirin and Plavix. In addition her echocardiogram was done yesterday which showed hyperdynamic LV function With an EF around 75%. We were unable to quantitate RVSP. Now that we know her LV function is normal, it may have been abnormal troponins due to hypertensive urgency. Recommend proceeding with debridement echocardiogram. If this is grossly abnormal she may require diagnostic coronary angiogram. If her debridement echo is negative for ischemia we would treat medically which is baby aspirin going forward. Would recommend obtaining the records from Dr. Bocanegra's office regarding her previous coronary issues. 2. Hyperlipidemia: Her LDL is 102, and HDL 69. Continue Pravachol therapy. 3. Code Visit Inpatient E&M: 96406 Subs Hosp L2
--- NOTE | 2017-10-07 10:21 | PN.CARD_ITS ---
Subjectve: Patient much more lucid today, but still with some confusion. No chest pain overnight. Objective: Vital Signs Temp Pulse Resp BP Pulse Ox 99.0 F 100 19 H 162/77 H 99 10/07/17 08:30 10/07/17 08:32 10/07/17 08:30 10/07/17 08:30 10/07/17 08:30 Oxygen Flow Rate (L/min) 3 Oxygen Delivery Method Room Air Weight: 214 lb 11.684 oz Body Mass Index (BMI) 36.8 Intake and Output for Last 24 Hours 10/05/17 10/06/17 10/07/17 23:59 23:59 23:59 Intake Total 1242 / 1242 986.5 / 986.5 403 / 403 Output Total 475 / 475 1125 / 1125 650 / 650 Balance 767 / 767 -138.5 / -138.5 -247 / -247 General: Awake, Alert, Oriented x 3 HEENT: PERRL, EOMI, Sclera Non Icteric Neck: Supple, Good ROM, No Lymph Node Enlargement Lungs: Clear to auscultation Cardiovascular: Regular Rhythm, Normal S1, Normal S2, No Murmurs, No Rubs, No Gallops Vascular: No Carotid Bruits, Normal Femoral Pulses, Normal Radial Pulses, Normal Dorsalis Pedal Pulse, Normal Posterior Tibial Pulses Abdomen: Bowel Sounds Present, Soft, Non Tender, No HSM, No Organomegaly Extremities: No Cyanosis, No Clubbing, No edema Neurological: No Focal Motor or Sensory Deficit 10/07/17 05:45: WBC 10.9, RBC 4.03 L, Hgb 10.9 L, Hct 32.1 L, MCV 79.7 L, MCH 27.0, MCHC 34.0, RDW 16.4 H, RDW Differential 46.4 H, Plt Count 467 H, MPV 9.3, Immature Gran % (Auto) 0.500, Neut % (Auto) 74.7 H, Lymph % (Auto) 14.9 L, [place] % (Auto) 8.3, Eos % (Auto) 1.3, Baso % (Auto) 0.3, Absolute Neuts (auto) 8.2 H, Total Counted Not Reportable 10/07/17 05:45: Sodium 133 L, Potassium 3.7, Chloride 103, Carbon Dioxide 20.0 L , Anion Gap 10, BUN 10, Creatinine 0.60, Est GFR (MDRD) Af Amer 123, Est GFR ( MDRD) Non-Af 102, BUN/Creatinine Ratio 16.6, Glucose 104, Calcium 8.8, Magnesium 1.9 10/07/17 05:45: PT 13.5, INR 1.0, APTT 36.6 H 10/07/17 05:45: Troponin I 0.078 H Rhythm: EKG: Telemetry normal sinus rhythm. ECHO: Stress Test: Cardiac Cath: PCI: CT Surgery: Holter monitor: EPS: PPM: CXR: Chest CT Scan: Medical Necessity - Tobacco Use Smoking Status: Never smoker Assessment/Plan 1. Chest pain: The patient has a history supposedly of coronary disease status post angioplasty about 10 years ago at [facility] although I do not have those records from Dr. Bocanegra's office. The patient had recurrent substernal chest pain yesterday in the face of a urinary tract infection with dynamic anterior lateral T-wave inversion. Her troponins are 0.108 after the second troponin, and third troponin decreased to 0.078. She has had no further chest pain. Recommend baby aspirin, and antihypertensive medications as outlined in the MRF. Patient was loaded with Plavix, and continues on baby aspirin and Plavix. In addition her echocardiogram was done yesterday which showed hyperdynamic LV function With an EF around 75%. We were unable to quantitate RVSP. Now that we know her LV function is normal, it may have been abnormal troponins due to hypertensive urgency. Recommend proceeding with debridement echocardiogram. If this is grossly abnormal she may require diagnostic coronary angiogram. If her debridement echo is negative for ischemia we would treat medically which is baby aspirin going forward. Would recommend obtaining the records from Dr. Bocanegra's office regarding her previous coronary issues. 2. Hyperlipidemia: Her LDL is 102, and HDL 69. Continue Pravachol therapy. 3. Code Visit Inpatient E&M: 76015 Subs Hosp L2
--- NOTE | 2017-10-07 10:49 | PCM.PROGNOTE ---
Patient Problems: Active and Suspected Problems Anxiety (Acute) Neuropathy (Acute) Coronary artery disease (Acute) Subjective: Day #5 ceftriaxone T-max overnight was 99.8?F. Blood pressures are erratic and over the past 24 hours have ranged from 139/73-190 3/75. Blood pressure is 162/77. Fluid balance since admission is -599. White blood cell count is now normal at 10.9. Hemoglobin is stable at 10.9. Platelet count is increased at 467 today. Sodium is mildly decreased at 133 and his serum bicarb is 20. BUN is now down to 10 and her creatinine is 0.6. Magnesium is within normal limits. Troponin peaked at 0.108 and now is down to 0.078. LDL was 102 and the HDL is 69. She is having a stress echocardiogram today. - Physical Exam Vital Signs Temp Pulse Resp BP Pulse Ox 99.0 F 100 19 H 162/77 H 99 10/07/17 08:30 10/07/17 08:32 10/07/17 08:30 10/07/17 08:30 10/07/17 08:30 Oxygen Flow Rate (L/min) 3 Oxygen Delivery Method Room Air Weight: 214 lb 11.684 oz Body Mass Index (BMI) 36.8 Intake and Output for Last 24 Hours 10/05/17 10/06/17 10/07/17 23:59 23:59 23:59 Intake Total 1242 / 1242 986.5 / 986.5 403 / 403 Output Total 475 / 475 1125 / 1125 650 / 650 Balance 767 / 767 -138.5 / -138.5 -247 / -247 Microbiology Past 72 Hours 10/03/17 23:25 Urine Culture - Final Urine, Clean Catch Presumptive E. coli Laboratory Tests Past 24 Hrs 10/03/17 10/07/17 10/07/17 19:54 05:45 05:45 WBC 10.9 RBC 4.03 L Hgb 10.9 L Hct 32.1 L MCV 79.7 L MCH 27.0 MCHC 34.0 RDW 16.4 H RDW Differential 46.4 H Plt Count 467 H MPV 9.3 Immature Gran % (Auto) 0.500 Neut % (Auto) 74.7 H Lymph % (Auto) 14.9 L [place] % (Auto) 8.3 Eos % (Auto) 1.3 Baso % (Auto) 0.3 Absolute Neuts (auto) 8.2 H Absolute Lymphs (auto) 1.62 Total Counted Not Reportable PT INR APTT Sodium 133 L Potassium 3.7 Chloride 103 Carbon Dioxide 20.0 L Anion Gap 10 BUN 10 Creatinine 0.60 Estim Creat Clear Calc 38.75 Est GFR (MDRD) Af Amer 123 Est GFR (MDRD) Non-Af 102 BUN/Creatinine Ratio 16.6 Glucose 104 Calcium 8.8 Magnesium 1.9 Troponin I RPR NONREACTIVE 10/07/17 10/07/17 05:45 05:45 WBC RBC Hgb Hct MCV MCH MCHC RDW RDW Differential Plt Count MPV Immature Gran % (Auto) Neut % (Auto) Lymph % (Auto) [place] % (Auto) Eos % (Auto) Baso % (Auto) Absolute Neuts (auto) Absolute Lymphs (auto) Total Counted PT 13.5 INR 1.0 APTT 36.6 H Sodium Potassium Chloride Carbon Dioxide Anion Gap BUN Creatinine Estim Creat Clear Calc Est GFR (MDRD) Af Amer Est GFR (MDRD) Non-Af BUN/Creatinine Ratio Glucose Calcium Magnesium Troponin I 0.078 H RPR Medical Necessity - Tobacco Use Smoking Status: Never smoker Assessment/Plan All Active Problems Anxiety (Acute) Neuropathy (Acute) Coronary artery disease (Acute) Right upper quadrant abdominal pain (Acute)
--- NOTE | 2017-10-07 13:46 | CASEMGMT ---
Voicemail left for Joyce at [facility] re: referral for pt. Referral packet faxed to Joyce. Dixie Santiago, Clinical Support
--- NOTE | 2017-10-07 14:11 | NURSING ---
pt removed IV. 2 RNs tried to reestablish IV site without success. Jenniferti notified and stated to hold off on placing new IV since pt can take PO.
[2017-10-07] MEDS: Nitroglycerin Oint 1 INCH PACKET TRANSDERM. (14:32)
--- NOTE | 2017-10-07 16:25 | CASEMGMT ---
REZA spoke with patient and family and they are all in agreement with [facility]. REZA left a message for Joyce letting her know patient is going to TCU. REZA spoke with Kira and she said insurance approved patient. REZA let patient and her family know this information. Plan: [facility] under skilled level of care. Sneha REY
--- NOTE | 2017-10-07 17:04 | PCM.TXEXTCAR ---
- Diet 10/07/17 13:23 Diet: Cardiac/Low Cholesterol Is pt able to select menu?: Yes - Routine Orders/Code Status Enema Type: Fleetz Enema Frequency: Daily PRN Suppository Type: Dulcolax 10mg Suppository Frequency: Daily PRN Walker Catheter Size: 16 Change Walker Catheter: DC at DC form SNF....she self catheterizes at home O2 Liters per Minute: 1-2 O2 Frequency: PRN Keep PO Greater than or Equal to (%): 91 Routine Lab Work: - - CBC, BMP in 1 week. Liver profile, CPK and lipid panel in 6 weeks Code Status: Full Code - Therapies Weight Bearing: Full weight bearing Physical Therapy: Eval and Treat Occupational Therapy: Eval and Treat - Problem/Diagnosis (1) Demand ischemia Status: Acute Current Visit: Yes (2) Hypertensive urgency Status: Acute Current Visit: Yes (3) Toxic metabolic encephalopathy Status: Acute Comment: Secondary to infection and sedating medications Current Visit: Yes (4) Hyponatremia Status: Acute Current Visit: Yes (5) Hypokalemia Status: Acute Current Visit: Yes (6) Microcytic anemia Status: Chronic Current Visit: Yes (7) History of urinary self-catheterization Status: Chronic Current Visit: Yes (8) Osteoarthritis Status: Chronic Current Visit: Yes (9) History of coronary artery disease Status: Chronic Current Visit: Yes (10) Grade I diastolic dysfunction Status: Chronic Current Visit: Yes (11) Anxiety Status: Chronic Current Visit: Yes (12) Neuropathy Status: Chronic Current Visit: Yes (13) HTN (hypertension) Status: Chronic Current Visit: Yes - Allergies/Procedures Done in Hospital Allergies/Adverse Reactions: Allergies cortisone [Cortisone] Allergy (Verified 09/28/17 11:31) Swelling Penicillins Allergy (Verified 09/28/17 11:31) Swelling sulfamethoxazole [From Bactrim] Allergy (Verified 09/28/17 11:31) Swelling trimethoprim [From Bactrim] Allergy (Verified 09/28/17 11:31) Swelling Procedures: 2-D Echocardiogram, Stress Test - Type of Care/Length of Stay Estimated LOS: Convalescent Care Less Than 30 days Type of Care Needed: Skilled Rehab Potential: Good Prognosis: Good - Additional Orders/Day of Discharge H&P will serve as current which was dated: 10/02/17 Day of Discharge: 10/07/17 - Dietary and Speech Recommendations Dietitian Recommendations/Changes: Will provide Ensure Enlive w/ medpass for additional calories/protein if consumed. - Follow Up Care Primary Care Physician: Regi Aguilar MD [Primary Care Provider] - Please follow up with your Primary Care Physician in: Following discharge from SNF
--- NOTE | 2017-10-07 17:10 | NURSING ---
report called to Ted NGUYEN in TCU
--- NOTE | 2017-10-07 17:15 | PCM.DC.SUM ---
Discharge Date and Diagnosis - Problem List Patient Problems: Active and Suspected Problems Demand ischemia (Acute) Hypertensive urgency (Acute) Toxic metabolic encephalopathy (Acute) Secondary to infection and sedating medications Hyponatremia (Acute) Hypokalemia (Acute) Date of Admission: 10/02/17 Date of Discharge: 10/07/17 - Primary Discharge Diagnosis Active and Suspected Problems Urinary tract infection secondary to E. coli Hypertensive urgency (Acute) Toxic metabolic encephalopathy (Acute) Secondary to infection and sedating medications Demand ischemia (Acute) Hyponatremia (Acute) Hypokalemia (Acute) - Secondary Discharge Diagnosis Chronic Problems HTN (hypertension) (Chronic) Anxiety (Chronic) Neuropathy (Chronic) Microcytic anemia (Chronic) History of urinary self-catheterization (Chronic) Osteoarthritis (Chronic) History of coronary artery disease (Chronic) Grade I diastolic dysfunction (Chronic) Mild aortic stenosis Hospital Course and Treatment Imaging Results: 10/07/17 08:58 Stress Test Echo W/Contrast [ECHO] Routine Dr. William Villegas-cardiology Operations: None Procedures: 2-D Echocardiogram, Stress test Summary of Care Provided: Patient is an 82-year-old female with a past medical history of hypertension, GERD, CAD, hyperlipidemia and neuropathy/neurogenic bladder (on a very high dose of Gabapentin) who presented to the ED at [facility] on 10/02/2017 c/o Right hip and leg pain. She is a very poor historian. She had recently was seen in the ED for R hip pain and the XRAY was negative. She was given Tramadol for pain and sent home. X-rays of the hip and pelvis showed no fractures. An x-ray of the right knee showed no acute abnormality but did show mild degenerative changes. The night hospitalist spoke to her family and they related the patient has poor insight and judgment. They have been thinking about placing her in a prison. They do not feel she is able to take care of herself and she has been very forgetful. She has been refusing medications. It was unclear if she was taking any of the medications prescribed to her at home. She is supposed to be self catheterizing herself 3-4 times a day. Vital signs in the emergency room were temperature 97.3, pulse 77, respiratory rate 18 and the blood pressure was 209/89. Pulse ox was 98% on room air. White blood cell count was elevated at 11.0 and hemoglobin was 11.4 with an MCV of 79.7. Platelets were within normal limits. The white blood cell differential was unremarkable. Sodium was low at 130 and potassium was low at 3.2. BUN was 13 and creatinine was 0.88. UA showed 50-100 WBCs per high-power field with 3+ bacteria. This was a clean-catch. The culture was positive for E. coli. A venous ultrasound of the right lower extremity was negative. Brain CT showed chronic involutional changes/microvascular changes with no acute intracranial pathology. She was admitted to the hospital with a diagnosis of hypertensive urgency and her home medications were resumed. She was started on Rocephin for a possible complicated UTI in a pt who self catheterizes. Consultation with PT and OT was ordered. A cotto catheter was placed. She was very confused in the hospital and very somnolent. I suspect she was not taking the Gabapentin or the anti-hypertensive medications at home. For the initial 3 days she was in the hospital she was so drowsy she could not effectively communicate and she was not eating. Gabapentin and Seroquel were discontinued and over the course of the next 48 hours she became much more alert. She still has speech that is difficult to understand because she tends to slur and make inappropriate comments....however her family confirmed she was back to her baseline. In the afternoon on 10/05 she clutched her chest and said she was SOB. A EKG showed new T wave inversions in leads V3-V6. She was started on a NTG infusion and given a loading dose of Plavix. Labetalol was discontinued and she was restarted on Lopressor 25 mg p.o. twice daily. Serial cardiac enzymes were ordered and the initial troponin was 0.053 and peaked at 0.108. Dr. Villegas from cardiology was consulted. Echocardiogram was ordered and showed an ejection fraction of 75% with no segmental wall motion abnormalities. Was stage I diastolic dysfunction present and mild aortic stenosis. Because she had no wall motion abnormalities a stress echocardiogram was ordered to evaluate for ischemia and this was performed on 10/07/2017 and was negative for ischemia. PT recommended SNF at [place]. She was transferred to TCU on 10/07/17. This will allow her family time to decide plans for placement in an ECF going forward if she does not appear to be able to manage her own care. She has been living by herself. She was discharged on Duricef 500 mg BID to finish 10 days of treatment for a complicated UTI related to self catheterization. Alert and sitting in a chair. Still confused and hard to understand. Lungs - CTA but diminished Heart - RRR, no MM, No gallop and no rub no peripheral edema Abd is soft, NT, ND and has NL BS's This note was generated with [employer] dictation software. It may contain incorrect words, spelling, and punctuation that were not noted in checking the note before signing. Home Medications: Medications to take at Discharge Calcium Carbonate/Vitamin D3 [Calcium 600-Vit D3 400 Tablet] 1 each PO DAILY 06/25/13 Glucosamine Sulfate Dipot Chlr [Glucosamine Relief] 500 mg PO DAILY 06/25/13 Hydrochlorothiazide 25 mg PO DAILY 06/25/13 Lisinopril 10 mg PO DAILY 06/25/13 Aspirin 325 mg PO DAILY@0800 #30 tablet 06/27/13 Pantoprazole Sodium [Protonix] 40 mg PO DAILY 06/27/13 levoFLOXacin tablet [Levaquin tablet] 500 mg PO DAILY #5 tablet 08/29/14 Docusate Sodium [Colace] 100 mg PO DAILY #20 capsule 03/28/16 Acetaminophen [Tylenol] 1,000 mg PO Q8 tablet 10/07/17 Amlodipine [Norvasc] 10 mg PO DAILY tablet 10/07/17 Cefadroxil [Duricef] 500 mg PO BID #10 cap 10/07/17 Docusate Sodium [Colace] 100 mg PO BID capsule 10/07/17 Gabapentin [Neurontin] 300 mg PO BIDCM capsule 10/07/17 Gabapentin [Neurontin] 400 mg PO QHS capsule 10/07/17 Lisinopril [Zestril] 10 mg PO DAILY tablet 10/07/17 Magnesium Hydroxide [Milk Of Magnesia] 30 ml PO DAILY PRN udc 10/07/17 Metoprolol Tartrate [Lopressor (beta kirby)] 50 mg PO BID tablet 10/07/17 Nitroglycerin [Nitrostat] 0.4 mg SUBLINGUAL Q5M PRN tablet 10/07/17 Pravastatin [Pravachol] 40 mg PO QHS #1 tablet 10/07/17 Following Prescrptions Were Given to Patient: Pravastatin [Pravachol] 40 mg PO QHS #1 tablet Cefadroxil [Duricef] 500 mg PO BID #10 cap Primary Care Physician: Regi Aguilar MD [Primary Care Provider] - Please follow up with your Primary Care Physician in: Following discharge from SNF Disposition: Longterm facility - TCU Minutes spent on discharge:: 40 Patient Condition:: Stable Medical Necessity - Tobacco Use Smoking Status: Never smoker Meaningful Use Info Meaningful Use Diagnoses (Choose all that apply): None applicable Code Visit Inpatient E&M: 09568 Disch Hosp
--- NOTE | 2017-10-07 17:25 | DS.PCM_ITS ---
Discharge Date and Diagnosis - Problem List Patient Problems: Active and Suspected Problems Demand ischemia (Acute) Hypertensive urgency (Acute) Toxic metabolic encephalopathy (Acute) Secondary to infection and sedating medications Hyponatremia (Acute) Hypokalemia (Acute) Date of Admission: 10/02/17 Date of Discharge: 10/07/17 - Primary Discharge Diagnosis Active and Suspected Problems Urinary tract infection secondary to E. coli Hypertensive urgency (Acute) Toxic metabolic encephalopathy (Acute) Secondary to infection and sedating medications Demand ischemia (Acute) Hyponatremia (Acute) Hypokalemia (Acute) - Secondary Discharge Diagnosis Chronic Problems HTN (hypertension) (Chronic) Anxiety (Chronic) Neuropathy (Chronic) Microcytic anemia (Chronic) History of urinary self-catheterization (Chronic) Osteoarthritis (Chronic) History of coronary artery disease (Chronic) Grade I diastolic dysfunction (Chronic) Mild aortic stenosis Hospital Course and Treatment Imaging Results: 10/07/17 08:58 Stress Test Echo W/Contrast [ECHO] Routine Dr. William Villegas-cardiology Operations: None Procedures: 2-D Echocardiogram, Stress test Summary of Care Provided: Patient is an 82-year-old female with a past medical history of hypertension, GERD, CAD, hyperlipidemia and neuropathy/neurogenic bladder (on a very high dose of Gabapentin) who presented to the ED at [facility] on 10/02/2017 c/o Right hip and leg pain. She is a very poor historian. She had recently was seen in the ED for R hip pain and the XRAY was negative. She was given Tramadol for pain and sent home. X-rays of the hip and pelvis showed no fractures. An x-ray of the right knee showed no acute abnormality but did show mild degenerative changes. The night hospitalist spoke to her family and they related the patient has poor insight and judgment. They have been thinking about placing her in a long term. They do not feel she is able to take care of herself and she has been very forgetful. She has been refusing medications. It was unclear if she was taking any of the medications prescribed to her at home. She is supposed to be self catheterizing herself 3-4 times a day. Vital signs in the emergency room were temperature 97.3, pulse 77, respiratory rate 18 and the blood pressure was 209/89. Pulse ox was 98% on room air. White blood cell count was elevated at 11.0 and hemoglobin was 11.4 with an MCV of 79.7. Platelets were within normal limits. The white blood cell differential was unremarkable. Sodium was low at 130 and potassium was low at 3.2. BUN was 13 and creatinine was 0.88. UA showed 50-100 WBCs per high-power field with 3+ bacteria. This was a clean-catch. The culture was positive for E. coli. A venous ultrasound of the right lower extremity was negative. Brain CT showed chronic involutional changes/microvascular changes with no acute intracranial pathology. She was admitted to the hospital with a diagnosis of hypertensive urgency and her home medications were resumed. She was started on Rocephin for a possible complicated UTI in a pt who self catheterizes. Consultation with PT and OT was ordered. A cotto catheter was placed. She was very confused in the hospital and very somnolent. I suspect she was not taking the Gabapentin or the anti-hypertensive medications at home. For the initial 3 days she was in the hospital she was so drowsy she could not effectively communicate and she was not eating. Gabapentin and Seroquel were discontinued and over the course of the next 48 hours she became much more alert. She still has speech that is difficult to understand because she tends to slur and make inappropriate comments....however her family confirmed she was back to her baseline. In the afternoon on 10/05 she clutched her chest and said she was SOB. A EKG showed new T wave inversions in leads V3-V6. She was started on a NTG infusion and given a loading dose of Plavix. Labetalol was discontinued and she was restarted on Lopressor 25 mg p.o. twice daily. Serial cardiac enzymes were ordered and the initial troponin was 0.053 and peaked at 0.108. Dr. Villegas from cardiology was consulted. Echocardiogram was ordered and showed an ejection fraction of 75% with no segmental wall motion abnormalities. Was stage I diastolic dysfunction present and mild aortic stenosis. Because she had no wall motion abnormalities a stress echocardiogram was ordered to evaluate for ischemia and this was performed on 10/07/2017 and was negative for ischemia. PT recommended SNF at [place]. She was transferred to TCU on 10/07/17. This will allow her family time to decide plans for placement in an ECF going forward if she does not appear to be able to manage her own care. She has been living by herself. She was discharged on Duricef 500 mg BID to finish 10 days of treatment for a complicated UTI related to self catheterization. Alert and sitting in a chair. Still confused and hard to understand. Lungs - CTA but diminished Heart - RRR, no MM, No gallop and no rub no peripheral edema Abd is soft, NT, ND and has NL BS's This note was generated with [employer] dictation software. It may contain incorrect words, spelling, and punctuation that were not noted in checking the note before signing. Home Medications: Medications to take at Discharge Calcium Carbonate/Vitamin D3 [Calcium 600-Vit D3 400 Tablet] 1 each PO DAILY Glucosamine Sulfate Dipot Chlr [Glucosamine Relief] 500 mg PO DAILY 06/25/13 Hydrochlorothiazide 25 mg PO DAILY 06/25/13 Lisinopril 10 mg PO DAILY 06/25/13 Aspirin 325 mg PO DAILY@0800 #30 tablet 06/27/13 Pantoprazole Sodium [Protonix] 40 mg PO DAILY 06/27/13 levoFLOXacin tablet [Levaquin tablet] 500 mg PO DAILY #5 tablet 08/29/14 Docusate Sodium [Colace] 100 mg PO DAILY #20 capsule 03/28/16 Acetaminophen [Tylenol] 1,000 mg PO Q8 tablet 10/07/17 Amlodipine [Norvasc] 10 mg PO DAILY tablet 10/07/17 Cefadroxil [Duricef] 500 mg PO BID #10 cap 10/07/17 Docusate Sodium [Colace] 100 mg PO BID capsule 10/07/17 Gabapentin [Neurontin] 300 mg PO BIDCM capsule 10/07/17 Gabapentin [Neurontin] 400 mg PO QHS capsule 10/07/17 Lisinopril [Zestril] 10 mg PO DAILY tablet 10/07/17 Magnesium Hydroxide [Milk Of Magnesia] 30 ml PO DAILY PRN udc 10/07/17 Metoprolol Tartrate [Lopressor (beta kirby)] 50 mg PO BID tablet 10/07/17 Nitroglycerin [Nitrostat] 0.4 mg SUBLINGUAL Q5M PRN tablet 10/07/17 Pravastatin [Pravachol] 40 mg PO QHS #1 tablet 10/07/17 Following Prescrptions Were Given to Patient: Pravastatin [Pravachol] 40 mg PO QHS #1 tablet Cefadroxil [Duricef] 500 mg PO BID #10 cap Primary Care Physician: Regi Aguilar MD [Primary Care Provider] - Please follow up with your Primary Care Physician in: Following discharge from SNF Disposition: [facility] facility - TCU Minutes spent on discharge:: 40 Patient Condition:: Stable Medical Necessity - Tobacco Use Smoking Status: Never smoker Meaningful Use Info Meaningful Use Diagnoses (Choose all that apply): None applicable Code Visit Inpatient E&M: 13477 Disch Hosp
== END 2017-10-07 20:00 | DRG 698 ==
LOC: ED 23:13 → PCU 23:20
PROVIDERS: Admitting Provider Internal Medicine; Emergency Provider Emergency Medicine; Family Provider Internal Medicine; PCP Internal Medicine; Visit Provider Internal Medicine
DX: T83.518A Infection and inflammatory reaction due to other urinary catheter, initial encounter (principal); G92 Toxic encephalopathy; N39.0 Urinary tract infection, site not specified; E87.1 Hypo-osmolality and hyponatremia; I24.8 Other forms of acute ischemic heart disease; I16.0 Hypertensive urgency; E87.6 Hypokalemia; F41.9 Anxiety disorder, unspecified; G62.9 Polyneuropathy, unspecified; D50.9 Iron deficiency anemia, unspecified; E78.5 Hyperlipidemia, unspecified; I25.10 Atherosclerotic heart disease of native coronary artery without angina pectoris; Z79.899 Other long term (current) drug therapy; T50.905A Adverse effect of unspecified drugs, medicaments and biological substances, initial encounter; B96.20 Unspecified Escherichia coli [E. coli] as the cause of diseases classified elsewhere; M19.90 Unspecified osteoarthritis, unspecified site; I35.0 Nonrheumatic aortic (valve) stenosis; I10 Essential (primary) hypertension; K21.9 Gastro-esophageal reflux disease without esophagitis; N31.9 Neuromuscular dysfunction of bladder, unspecified; M79.605 Pain in left leg; M79.604 Pain in right leg
CPT/HCPCS: 36415; 36600; 51702; 70450; 71045; 73502; 73564; 80048; 80053; 80061; 81001; 82140; 82570; 82607; 82728; 82803; 82962; 83540; 83550; 83735; 83880; 84100; 84300; 84443; 84484; 85025; 85027; 85045; 85610; 85730; 86038; 86225; 86235; 86592; 87086; 87088; 87186; 93005; 93017; 93306; 93350; 93971; 97110; 97162; 97165; 97530; 99283; J7030; J7040; Q9957; A4216; C8928; C8929

== ENCOUNTER 2017-10-07 20:05 | Inpatient (IN) | payer MEDICARE, SELFPAY ==
--- NOTE | 2017-10-07 20:05 | NURSING ---
Patient arrived to this unit via bed from PCU. Acclimated to room and call light.
[2017-10-07 20:51] VITALS: BP 178/82; PULSE 87; RESP 20; TEMP 37.2; O2SAT 95
--- NOTE | 2017-10-07 20:56 | PCM.HP.STD ---
Problem List (1) Urinary tract infection Status: Acute (2) Right hip pain Status: Acute (3) GERD (gastroesophageal reflux disease) Status: Chronic (4) Hyperlipidemia Status: Chronic (5) Chronic pain Status: Chronic (6) HTN (hypertension) Status: Chronic (7) Anxiety Status: Chronic (8) Neuropathy Status: Chronic (9) Demand ischemia Status: Acute (10) Hypertensive urgency Status: Acute (11) Toxic metabolic encephalopathy Status: Acute Comment: Secondary to infection and sedating medications (12) Grade I diastolic dysfunction Status: Chronic History of Present Illness Date of Admission: 10/07/17 Chief Complaint: Here for rehabilitation, strengthening, prior to fci placement. The patient is a 82 year old Female with below past medical history presented to [facility] 10/02/2017 with right hip pain, right leg pain. 10/02/2017 X-ray pelvis, right hip negative. 10/02/2017 X-ray right knee mild arthritis. 10/02/2017 Doppler right lower extremity negative for DVT. 10/02/2017 EKG sinus rhythm with frequent PVC, nonspecific ST&T wave abnormality. Tramadol for right hip pain, ran out of Tramadol. Unable to ambulate all day. Hemoglobin 11.4, K 3.2, Sodium 130. INR normal. BP 233/94, Clonidine given. Vistaril given for anxiety. Tramadol for pain. 10/02/2017 Admit to Hospital. Consider Correction Placement. Resume blood pressure for HTN, patient non-compliant at home due to cognitive deficits. PT/OT. Patient has poor insight, poor judgement. UA consistent with UTI, Rocephin started. Ativan for behavioral disturbance made her sleepy. Stopped Ativan, Used Haldol, Seroquel instead. Stop Metoprolol, Labetalol instead, works better in black population. Taper Gabapentin. PRN Hydralazine for elevated blood pressure. 10/03/2017 CT brain chronic involutional changes of brain. 10/04/2017 Rocephin for UTI. 10/05/2017 Chest X-ray showed CHF. 10/06/2017 Echo EF 75% Stage 1 diastolic dysfunction. Mild Aortic Stenosis. 10/06/2017 Dr. Villegas consulted for chest pain. Recommend baby aspirin, Plavix, may need left heart catheterization in future. Consider Takotsubo syndrome. 10/07/2017 Dobutamine echo negative for ischemia. Troponin peaked at 0.108, down to 0.078. 10/07/2017 Admit to TCU for rehabilitation, strengthening, prior to fci placement. Past Medical History Past Medical History (Chronic Problems): Chronic Problems HTN (hypertension) (Chronic) Anxiety (Chronic) Neuropathy (Chronic) Microcytic anemia (Chronic) History of urinary self-catheterization (Chronic) Osteoarthritis (Chronic) History of coronary artery disease (Chronic) Grade I diastolic dysfunction (Chronic) GERD (gastroesophageal reflux disease) (Chronic) Hyperlipidemia (Chronic) Chronic pain (Chronic) Allergies cortisone [Cortisone] Allergy (Verified 09/28/17 11:31) Swelling Penicillins Allergy (Verified 09/28/17 11:31) Swelling sulfamethoxazole [From Bactrim] Allergy (Verified 09/28/17 11:31) Swelling trimethoprim [From Bactrim] Allergy (Verified 09/28/17 11:31) Swelling Home Medications: Ambulatory Orders Medication Instructions Recorded Calcium Carbonate/Vitamin D3 1 each PO DAILY 06/25/13 [Calcium 600-Vit D3 400 Tablet] Glucosamine Sulfate Dipot Chlr 500 mg PO DAILY 06/25/13 [Glucosamine Relief] Hydrochlorothiazide 25 mg PO DAILY 06/25/13 Pantoprazole Sodium [Protonix] 40 mg PO DAILY 06/27/13 Acetaminophen [Tylenol] 1,000 mg PO Q8 10/07/17 Amlodipine [Norvasc] 10 mg PO DAILY 10/07/17 Aspirin 325 mg PO DAILY@0800 10/07/17 Cefadroxil [Duricef] 500 mg PO BID 10/07/17 Docusate Sodium [Colace] 100 mg PO BID 10/07/17 Gabapentin [Neurontin] 300 mg PO BIDCM 10/07/17 Gabapentin [Neurontin] 400 mg PO QHS 10/07/17 Lisinopril [Zestril] 10 mg PO DAILY 10/07/17 Magnesium Hydroxide [Milk Of 30 ml PO DAILY PRN udc 10/07/17 Magnesia] Metoprolol Tartrate [Lopressor 50 mg PO BID 10/07/17 (beta kirby)] Nitroglycerin [Nitrostat] 0.4 mg SUBLINGUAL Q5M PRN tablet 10/07/17 Pravastatin [Pravachol] 40 mg PO QHS 10/07/17 levoFLOXacin tablet [Levaquin 500 mg PO DAILY 10/07/17 tablet] Surgical History: appendectomy, coronary bypass surgery, hysterectomy Psychiatric History: No pertinent psych 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 Lives: Alone Smoking Status: Never smoker Tobacco Use: Non-smoker Alcohol: None Drugs: None - *Family History Maternal History Items: Cancer Paternal History Items: No pertinent history Sibling History Items: Diabetes Review of Systems Constitutional: Denies: Chills, Fever, Weight Change HEENT: Denies: Head Aches, Sinus Congestion, Sinus Drainage Cardiovascular: Denies: Chest Pain, Palpitations Respiratory: Denies: Cough, Shortness of breath at rest, Sputum production Gastrointestinal: Denies: Abdominal Pain, Nausea, Vomiting Genitourinary: Denies: Dysuria Musculoskeletal: Denies: Joint Pain, Joint Tenderness Skin: Denies: Rash, Wounds Neurological: Denies: Numbness, Tingling, Focal weakness Psychiatric: Denies: Anxiety, Depression, Homicidal Ideations, Suicidal Ideations Hematologic/ Lymphatic: Denies: Easy Bruising, Easy Bleeding VTE Information - Inpt Only VTE Present on Admission: No VTE Mechan Device Prophylaxis: Knee High MILAN Hose VTE Pharm Prophylaxis ordered?: Yes Patient Problems: Active and Suspected Problems Urinary tract infection (Acute) Right hip pain (Acute) - Physical Exam General: Alert, Oriented x3, Cooperative HEENT: Atraumatic, PERRLA, EOMI, Normocephalic Neck: Supple, No JVD, Negative Carotid Bruits Lungs: Clear to auscultation, Normal air movement Cardiovascular: Regular rate, No murmurs Abdomen: Bowel Sounds Present, Soft, Non Tender Extremities: No edema, Capillary Refill Less than 3 Seconds Skin: No rashes, No breakdown Musculoskeletal: No Tenderness to Palpation of Joints or Extremities Neurological: Cranial nerves II-XII grossly intact Psych/Mental Status: Normal Affect, Appropriate Finger Stick Blood Glucose 106 Assessment/Plan All Active Problems Demand ischemia (Acute) Hypertensive urgency (Acute) Toxic metabolic encephalopathy (Acute) Hyponatremia (Acute) Hypokalemia (Acute) Urinary tract infection (Acute) Right hip pain (Acute) 82 year old female with below past medical history hospitalized for acute delirium secondary to urinary tract infection, complicated by NSTEMI from demand ischemia, acute on chronic diastolic heart failure, admitted to TCU with debility, here for rehabilitation, strengthening, prior to fci placement, patient not safe to live alone. Debility - PT/OT. Pain - Tylenol 1000MG Q8H. Bowel - Miralax 17GM daily, Senna/colace 1 tablet BID, Dulcolax 10MG PO daily PRN. Pneumonia vaccination - Administer Prevnar 13 and/or Pneumovax 23 as necessary. DVT prophylaxis - Lovenox 40MG SC daily. Hypertension - Metoprolol 50MG BID, Lisinopril 10MG daily, HCTZ 25MG daily, Amlodipine 10MG daily. Coronary Artery Disease - Metoprolol 50MG BID, Lisinopril 10MG daily, Aspirin 325MG daily, NTG 0.4MG Q5M PRN. Calcium deficiency - Calcium D daily. E. Coli UTI - Duricef 500MG BID thru 10/12/2017. Neuropathic pain - Gabapentin 300MG BID, 400MG QHS. Osteoarthritis - Glucosamine 500MG daily. GERD - Pantoprazole 40MG daily. Hyperlipidemia - Pravastatin 40MG QHS. Anxiety - Ativan 0.25 - 0.5MG Q6H PRN. Encephalopathy/underlying dementia - recommend [facility] placement at discharge.
--- NOTE | 2017-10-07 21:09 | HP.PCM_ITS ---
Problem List (1) Urinary tract infection Status: Acute (2) Right hip pain Status: Acute (3) GERD (gastroesophageal reflux disease) Status: Chronic (4) Hyperlipidemia Status: Chronic (5) Chronic pain Status: Chronic (6) HTN (hypertension) Status: Chronic (7) Anxiety Status: Chronic (8) Neuropathy Status: Chronic (9) Demand ischemia Status: Acute (10) Hypertensive urgency Status: Acute (11) Toxic metabolic encephalopathy Status: Acute Comment: Secondary to infection and sedating medications (12) Grade I diastolic dysfunction Status: Chronic History of Present Illness Date of Admission: 10/07/17 Chief Complaint: Here for rehabilitation, strengthening, prior to custodial placement. The patient is a 82 year old Female with below past medical history presented to [facility] 10/02/2017 with right hip pain, right leg pain. 10/02/2017 X-ray pelvis, right hip negative. 10/02/2017 X-ray right knee mild arthritis. 10/02/2017 Doppler right lower extremity negative for DVT. 10/02/2017 EKG sinus rhythm with frequent PVC, nonspecific ST&T wave abnormality. Tramadol for right hip pain, ran out of Tramadol. Unable to ambulate all day. Hemoglobin 11.4, K 3.2, Sodium 130. INR normal. BP 233/94, Clonidine given. Vistaril given for anxiety. Tramadol for pain. 10/02/2017 Admit to Hospital. Consider [facility] Placement. Resume blood pressure for HTN, patient non-compliant at home due to cognitive deficits. PT/OT. Patient has poor insight, poor judgement. UA consistent with UTI, Rocephin started. Ativan for behavioral disturbance made her sleepy. Stopped Ativan, Used Haldol, Seroquel instead. Stop Metoprolol, Labetalol instead, works better in black population. Taper Gabapentin. PRN Hydralazine for elevated blood pressure. 10/03/2017 CT brain chronic involutional changes of brain. 10/04/2017 Rocephin for UTI. 10/05/2017 Chest X-ray showed CHF. 10/06/2017 Echo EF 75% Stage 1 diastolic dysfunction. Mild Aortic Stenosis. 10/06/2017 Dr. Villegas consulted for chest pain. Recommend baby aspirin, Plavix, may need left heart catheterization in future. Consider Takotsubo syndrome. 10/07/2017 Dobutamine echo negative for ischemia. Troponin peaked at 0.108, down to 0.078. 10/07/2017 Admit to TCU for rehabilitation, strengthening, prior to custodial placement. Past Medical History Past Medical History (Chronic Problems): Chronic Problems HTN (hypertension) (Chronic) Anxiety (Chronic) Neuropathy (Chronic) Microcytic anemia (Chronic) History of urinary self-catheterization (Chronic) Osteoarthritis (Chronic) History of coronary artery disease (Chronic) Grade I diastolic dysfunction (Chronic) GERD (gastroesophageal reflux disease) (Chronic) Hyperlipidemia (Chronic) Chronic pain (Chronic) Allergies cortisone [Cortisone] Allergy (Verified 09/28/17 11:31) Swelling Penicillins Allergy (Verified 09/28/17 11:31) Swelling sulfamethoxazole [From Bactrim] Allergy (Verified 09/28/17 11:31) Swelling trimethoprim [From Bactrim] Allergy (Verified 09/28/17 11:31) Swelling Home Medications: Ambulatory Orders Medication Instructions Recorded Calcium Carbonate/Vitamin D3 1 each PO DAILY 06/25/13 [Calcium 600-Vit D3 400 Tablet] Glucosamine Sulfate Dipot Chlr 500 mg PO DAILY 06/25/13 [Glucosamine Relief] Hydrochlorothiazide 25 mg PO DAILY 06/25/13 Pantoprazole Sodium [Protonix] 40 mg PO DAILY 06/27/13 Acetaminophen [Tylenol] 1,000 mg PO Q8 10/07/17 Amlodipine [Norvasc] 10 mg PO DAILY 10/07/17 Aspirin 325 mg PO DAILY@0800 10/07/17 Cefadroxil [Duricef] 500 mg PO BID 10/07/17 Docusate Sodium [Colace] 100 mg PO BID 10/07/17 Gabapentin [Neurontin] 300 mg PO BIDCM 10/07/17 Gabapentin [Neurontin] 400 mg PO QHS 10/07/17 Lisinopril [Zestril] 10 mg PO DAILY 10/07/17 Magnesium Hydroxide [Milk Of 30 ml PO DAILY PRN udc 10/07/17 Magnesia] Metoprolol Tartrate [Lopressor 50 mg PO BID 10/07/17 (beta kirby)] Nitroglycerin [Nitrostat] 0.4 mg SUBLINGUAL Q5M PRN tablet 10/07/17 Pravastatin [Pravachol] 40 mg PO QHS 10/07/17 levoFLOXacin tablet [Levaquin 500 mg PO DAILY 10/07/17 tablet] Surgical History: appendectomy, coronary bypass surgery, hysterectomy Psychiatric History: No pertinent psych 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 Lives: Alone Smoking Status: Never smoker Tobacco Use: Non-smoker Alcohol: None Drugs: None - *Family History Maternal History Items: Cancer Paternal History Items: No pertinent history Sibling History Items: Diabetes Review of Systems Constitutional: Denies: Chills, Fever, Weight Change HEENT: Denies: Head Aches, Sinus Congestion, Sinus Drainage Cardiovascular: Denies: Chest Pain, Palpitations Respiratory: Denies: Cough, Shortness of breath at rest, Sputum production Gastrointestinal: Denies: Abdominal Pain, Nausea, Vomiting Genitourinary: Denies: Dysuria Musculoskeletal: Denies: Joint Pain, Joint Tenderness Skin: Denies: Rash, Wounds Neurological: Denies: Numbness, Tingling, Focal weakness Psychiatric: Denies: Anxiety, Depression, Homicidal Ideations, Suicidal Ideations Hematologic/ Lymphatic: Denies: Easy Bruising, Easy Bleeding VTE Information - Inpt Only VTE Present on Admission: No VTE Mechan Device Prophylaxis: Knee High MILAN Hose VTE Pharm Prophylaxis ordered?: Yes Patient Problems: Active and Suspected Problems Urinary tract infection (Acute) Right hip pain (Acute) - Physical Exam General: Alert, Oriented x3, Cooperative HEENT: Atraumatic, PERRLA, EOMI, Normocephalic Neck: Supple, No JVD, Negative Carotid Bruits Lungs: Clear to auscultation, Normal air movement Cardiovascular: Regular rate, No murmurs Abdomen: Bowel Sounds Present, Soft, Non Tender Extremities: No edema, Capillary Refill Less than 3 Seconds Skin: No rashes, No breakdown Musculoskeletal: No Tenderness to Palpation of Joints or Extremities Neurological: Cranial nerves II-XII grossly intact Psych/Mental Status: Normal Affect, Appropriate Finger Stick Blood Glucose 106 Assessment/Plan All Active Problems Demand ischemia (Acute) Hypertensive urgency (Acute) Toxic metabolic encephalopathy (Acute) Hyponatremia (Acute) Hypokalemia (Acute) Urinary tract infection (Acute) Right hip pain (Acute) 82 year old female with below past medical history hospitalized for acute delirium secondary to urinary tract infection, complicated by NSTEMI from demand ischemia, acute on chronic diastolic heart failure, admitted to TCU with debility, here for rehabilitation, strengthening, prior to custodial placement, patient not safe to live alone. * Debility - PT/OT. * Pain - Tylenol 1000MG Q8H. * Bowel - Miralax 17GM daily, Senna/colace 1 tablet BID, Dulcolax 10MG PO daily PRN. * Pneumonia vaccination - Administer Prevnar 13 and/or Pneumovax 23 as necessary. * DVT prophylaxis - Lovenox 40MG SC daily. * Hypertension - Metoprolol 50MG BID, Lisinopril 10MG daily, HCTZ 25MG daily, Amlodipine 10MG daily. * Coronary Artery Disease - Metoprolol 50MG BID, Lisinopril 10MG daily, Aspirin 325MG daily, NTG 0.4MG Q5M PRN. * Calcium deficiency - Calcium D daily. * E. Coli UTI - Duricef 500MG BID thru 10/12/2017. * Neuropathic pain - Gabapentin 300MG BID, 400MG QHS. * Osteoarthritis - Glucosamine 500MG daily. * GERD - Pantoprazole 40MG daily. * Hyperlipidemia - Pravastatin 40MG QHS. * Anxiety - Ativan 0.25 - 0.5MG Q6H PRN. * Encephalopathy/underlying dementia - recommend senior care placement at discharge.
--- NOTE | 2017-10-07 21:17 | NURSING ---
Dr. Burdick notified of patient having anxiety. Orders given for Ativan 0.25mg-0.5 mg q6h prn. Duricef order clarified with Dr. Burdick since patient is allergic to penicillins, ok to give per Dr. Burdick. Order clarified with tarah Nelson to d/c Levaquin.
[2017-10-07] MEDS: Gabapentin 400 MG Capsule PO (21:53)
[2017-10-07] MEDS: Acetaminophen 500 MG Tablet 1000 MG PO (21:53)
[2017-10-07] MEDS: Pravastatin 40 MG Tablet PO (22:04)
[2017-10-07 22:22] VITALS: BMI 36.6
[2017-10-07] MEDS: LORazepam 0.5 MG Tablet 0.25 MG PO (22:26)
[2017-10-07 22:47] VITALS: BMI 36.6
--- NOTE | 2017-10-08 00:44 | NURSING ---
Addendum entered by Isabel Crowley 10/08/17 01:11: YARI Rebolledo notified of patient pulling out cotto, orders given to reinsert Cotto. In a few days when patient is more within normal limits we can start straight cathing per her routine. Original Note: MONICA Sullivan alerted this RN and Isabel RN that pt had removed her Cotto catheter by pulling it out. Upon entering room, pt found to have blood in vaginal area due to trauma from removal. Balloon to Cotto catheter remained inflated and intact; tip of catheter also intact. Pt's nuno area cleansed at this time with NS and 4x4s. No more bloody drng present. Pt denies any pain at this time. New attends applied. Pt left resting comfortably in bed, call light in reach. Will continue to monitor.
--- NOTE | 2017-10-08 01:35 | NURSING ---
PATIENT PULLED ESTEVEZ OUT. #16 ESTEVEZ INSERTED PER ORDER. PATIENT TOLERATED PROCEDURE WELL. WILL CONT TO MONITOR.
[2017-10-08] MEDS: LORazepam 0.5 MG Tablet PO (04:48)
[2017-10-08] MEDS: Polyethylene Glycol 3350 17 GM PACKET PO (04:53)
[2017-10-08] MEDS: Calcium Carb/Vitamin D 1 TABLET Tablet PO (04:53)
[2017-10-08] MEDS: Senna/Docusate Sodium 1 Tablet PO ×2 (04:53→16:54)
[2017-10-08] MEDS: Lisinopril 10 MG Tablet PO (04:53)
[2017-10-08 04:54] VITALS: BP 168/68; PULSE 90
[2017-10-08] MEDS: hydroCHLOROthiazide 25 MG Tablet PO (04:54)
[2017-10-08] MEDS: Acetaminophen 500 MG Tablet 1000 MG PO ×3 (04:54→20:27)
[2017-10-08] MEDS: Pantoprazole Sodium 40 MG Tablet PO (04:54)
[2017-10-08] MEDS: Metoprolol Tartrate 50 MG Tablet PO ×2 (04:54→16:52)
[2017-10-08] MEDS: amLODIPine 10 MG Tablet PO (04:54)
[2017-10-08] MEDS: Cefadroxil 500 MG CAPSULE PO ×2 (04:55→16:53)
[2017-10-08] MEDS: Enoxaparin 40 MG/0.4 ML Syringe SC (05:00)
[2017-10-08 06:51] LABS: Absolute Lymphocyte Count 2.52 X10^3/ul (0.83-4.51); Basophil# 0.04 X10^3/uL; Basophil% 0.4 % (0-1); Eosinophil# 0.16 X10^3/uL; Eosinophils% 1.5 % (0-5); Hematocrit 34.1 % (37-47); Hemoglobin 11.2 g/dl (12.0-15.0); Lymphocyte # 2.52 X10^3/ul (4.0); Lymphocyte % 24.3 % (19-41); Mean Corp Hgb Conc 32.8 g/gl (32-36); Mean Corpuscular Hgb 26.3 pg (27.0-32.0); Mean Platelet Vol. 8.5 fl (6.2-12.0); Monocyte# 0.57 X10^3/uL; Monocyte% 5.5 % (0-10); Neutrophil # 7.02 X10^3/uL (2.7-7.7); Neutrophil % 67.8 % (47-70); Platelet Count 409 K/mm3 (150-450); RBC Distribution Width CV 16.6 % (11.6-14.6); RBC Distribution Width SD 48.7 fl (35.1-43.9); Red Blood Count 4.26 M/mm3 (4.2-5.4); White Blood Count 10.4 K/mm3 (4.4-11.0)
[2017-10-08 06:56] LABS: POSITIVE COUNT NO; POSITIVE DIFFERENTIAL NO; POSITIVE MORPHOLOGY NO
[2017-10-08 07:00] LABS: Anion Gap 8 (5-15); BUN 12 mg/dL (7-18); BUN/Creat Ratio 15.3 RATIO (10-20); Calcium,Total 9.2 mg/dL (8.5-10.1); Chloride 102 mmol/L (98-107); Creatinine, Serum 0.78 mg/dL (0.55-1.02); EST Glomerular Filtration Rate 75 mL/min (>60); Est Glom Filt Rate - Afr Amer 91 mL/min (>60); Estimated Creatinine Clearance 38.75 ml/min; Glucose 138 mg/dL (74-106); Potassium 3.7 mmol/L (3.5-5.1); Sodium Level 133 mmol/L (136-145)
[2017-10-08] MEDS: Aspirin 325 MG Tablet PO (07:40)
[2017-10-08] MEDS: Gabapentin 300 MG Capsule PO ×2 (07:40→16:53)
[2017-10-08] MEDS: Tuberculin,Purif.prot.deriv. 50 TU/ML Vial 5 ML ID (10:25)
[2017-10-08 16:00] VITALS: BP 165/115; PULSE 86; RESP 18; TEMP 36.7; O2SAT 97
[2017-10-08 16:52] VITALS: PULSE 86
[2017-10-08] MEDS: Pravastatin 40 MG Tablet PO (20:27)
[2017-10-08] MEDS: Gabapentin 400 MG Capsule PO (20:27)
[2017-10-08 20:33] VITALS: RESP 15
[2017-10-09] MEDS: Pantoprazole Sodium 40 MG Tablet PO (05:00)
[2017-10-09] MEDS: hydroCHLOROthiazide 25 MG Tablet PO (05:00)
[2017-10-09] MEDS: Enoxaparin 40 MG/0.4 ML Syringe SC (05:00)
[2017-10-09] MEDS: Calcium Carb/Vitamin D 1 TABLET Tablet PO (05:00)
[2017-10-09 05:01] VITALS: BP 174/73; PULSE 74
[2017-10-09] MEDS: Metoprolol Tartrate 50 MG Tablet PO ×2 (05:01→18:05)
[2017-10-09] MEDS: Cefadroxil 500 MG CAPSULE PO ×2 (05:01→18:05)
[2017-10-09] MEDS: Acetaminophen 500 MG Tablet 1000 MG PO ×3 (05:01→20:36)
[2017-10-09] MEDS: Lisinopril 10 MG Tablet PO (05:01)
[2017-10-09] MEDS: amLODIPine 10 MG Tablet PO (05:01)
[2017-10-09] MEDS: Polyethylene Glycol 3350 17 GM PACKET PO (05:03)
[2017-10-09] MEDS: Senna/Docusate Sodium 1 Tablet PO ×2 (05:05→18:05)
[2017-10-09] MEDS: Aspirin 325 MG Tablet PO (08:18)
[2017-10-09] MEDS: Gabapentin 300 MG Capsule PO ×2 (08:18→18:05)
[2017-10-09 15:22] VITALS: BP 138/71; PULSE 66; RESP 16; TEMP 36.3; O2SAT 96
[2017-10-09 18:05] VITALS: BP 138/71; PULSE 66
[2017-10-09] MEDS: Pravastatin 40 MG Tablet PO (19:52)
[2017-10-09] MEDS: Gabapentin 400 MG Capsule PO (19:52)
[2017-10-09 20:00] VITALS: PULSE 76; RESP 16; O2SAT 94
[2017-10-09] MEDS: Menthol/Lanolin/Calamine/Znox 113 GM Tube 1 APPLIC TOPICAL (21:31)
--- NOTE | 2017-10-13 22:33 | PCM.PN.RX ---
<Ki Cortez D - Last Filed: 10/13/17 22:33> Progress Note - Pharmacy Subjective: [] Objective: Allergies cortisone [Cortisone] Allergy (Verified 09/28/17 11:31) Swelling Penicillins Allergy (Verified 09/28/17 11:31) Swelling sulfamethoxazole [From Bactrim] Allergy (Verified 09/28/17 11:31) Swelling trimethoprim [From Bactrim] Allergy (Verified 09/28/17 11:31) Swelling Current Medications Generic Name Dose Route Start Last Admin Trade Name Freq PRN Reason Stop Dose Admin Acetaminophen 1,000 mg 10/07/17 22:00 10/09/17 20:36 Tylenol PO 1,000 mg Q8 MADDISON Administration Amlodipine Besylate 10 mg 10/08/17 06:00 10/09/17 05:01 Norvasc PO 10 mg DAILY MADDISON Administration Aspirin 325 mg 10/08/17 08:00 10/09/17 08:18 Aspirin PO 325 mg DAILY@0800 MADDISON Administration Bisacodyl 10 mg 10/07/17 21:36 Dulcolax PO DAILY PRN Constipation Calamine/Phenol 1 applic 10/09/17 22:00 10/09/17 21:31 Calmoseptine Ointment TOPICAL 1 applicatio 0600,2200 MADDISON Administration Protocol Calcium/Vitamin D 1 tablet 10/08/17 06:00 10/09/17 05:00 Os-Shine 500mg + D PO 1 tablet DAILY MADDISON Administration Enoxaparin Sodium 40 mg 10/08/17 06:00 10/09/17 05:00 Lovenox SC 40 mg DAILY@0600 MADDISON Administration Gabapentin 300 mg 10/08/17 08:00 10/09/17 18:05 Neurontin PO 300 mg BIDCM MADDISON Administration Gabapentin 400 mg 10/07/17 22:00 10/09/17 19:52 Neurontin PO 400 mg QHS MADDISON Administration Hydrochlorothiazide 25 mg 10/08/17 06:00 10/09/17 05:00 Hctz PO 25 mg DAILY MADDISON Administration Lisinopril 10 mg 10/08/17 06:00 10/09/17 05:01 Zestril PO 10 mg DAILY MADDISON Administration Lorazepam 0.25 - 0.5 mg 10/08/17 04:39 10/08/17 04:48 Ativan PO 0.5 mg Q6H PRN PRN Administration ANXIETY Metoprolol Tartrate 50 mg 10/08/17 06:00 10/09/17 18:05 Lopressor (Beta Saloni) PO 50 mg BID MADDISON Administration Nitroglycerin 0.4 mg 10/07/17 21:08 Nitrostat SUBLINGUAL Q5M PRN CARDIAC/CHEST PAIN Nutritional Formula (Lactose Free) 120 ml 10/07/17 22:00 10/09/17 19:52 Ensure Enlive PO 120 ml 4X/DAY MADDISON Administration Pantoprazole Sodium 40 mg 10/08/17 06:00 10/09/17 05:00 Protonix PO 40 mg DAILY MADDISON Administration Polyethylene Glycol 17 gm 10/08/17 06:00 10/09/17 05:03 Miralax PO 17 gm DAILY MADDISON Administration Pravastatin Sodium 40 mg 10/07/17 22:00 10/09/17 19:52 Pravachol PO 40 mg QHS MADDISON Administration Senna/Docusate Sodium 1 tablet 10/08/17 06:00 10/09/17 18:05 Senokot-S, Caitlin-Colace PO 1 tablet BID MADDISON Administration Tuberculin PPD 5 tu 10/15/17 10:00 Tubersol, Aplisol, Ppd ID 10/15/17 10:01 X1 ONE Problem List Urinary tract infection (Acute) Right hip pain (Acute) GERD (gastroesophageal reflux disease) (Chronic) Hyperlipidemia (Chronic) Chronic pain (Chronic) Vital Signs Temp Pulse Resp BP Pulse Ox 97.3 F L 76 16 138/71 H 94 10/09/17 15:22 10/09/17 20:00 10/09/17 20:00 10/09/17 18:05 10/09/17 20:00 Oxygen Delivery Method Room Air Weight: 96.615 kg Body Mass Index (BMI) 36.6 Finger Stick Blood Glucose 106 Sodium 133 mmol/L (136-145) L 10/08/17 06:35 Potassium 3.7 mmol/L (3.5-5.1) 10/08/17 06:35 Chloride 102 mmol/L (98-107) 10/08/17 06:35 Carbon Dioxide 23.0 mmol/L (21.0-32.0) 10/08/17 06:35 Anion Gap 8 (5-15) 10/08/17 06:35 BUN 12 mg/dL (7-18) 10/08/17 06:35 Creatinine 0.78 mg/dL (0.55-1.02) 10/08/17 06:35 Est GFR (MDRD) Af Amer 91 mL/min (>60) 10/08/17 06:35 Est GFR (MDRD) Non-Af 75 mL/min (>60) 10/08/17 06:35 BUN/Creatinine Ratio 15.3 RATIO (10-20) 10/08/17 06:35 Glucose 138 mg/dL (74-106) H 10/08/17 06:35 Assessment/Plan: 1) Pain APAP scheduled, gabapentin 3x daily. Continue to monitor daily pain scores. 2) HTN/CAD Amlodipine, HCTZ, lisinopril, metoprolol, prn NTG, pravastatin. Continue to monitor BP/HR, BUN/SCr, electrolytes, lipids, prn medication use, for chest pain. 3) Cardiac ASA daily. Continue to monitor for s/s bleeding/clot. 4) Nutrition Calcium/D, Ensure. Continue to monitor clinically. 5) DVT PPx Enoxaparin daily. Continue to monitor s/s bleeding/clot. 6) Derm Calmoseptine topically. Continue to monitor clinically. 7) GI Pantoprazole daily. Continue to monitor s/s GI distress. Psychotropic Medications: 8) Anxiety Lorazepam as needed. Continue to monitor prn medication use, for s/s anxiety. Unnecessary Medications: None Bowel Regimen: 9) Senna/s, PEG, prn bisacodyl. Continue to monitor prn medication use, for constipation/diarrhea. Date of Note:: 10/13/17 - Provider Comments Provider responsibility: Provider responsible to enter orders to implement recommendations <Chris Burdick Chi - Last Filed: 10/17/17 18:16> Progress Note - Pharmacy Subjective: [] Objective: Allergies cortisone [Cortisone] Allergy (Verified 09/28/17 11:31) Swelling Penicillins Allergy (Verified 09/28/17 11:31) Swelling sulfamethoxazole [From Bactrim] Allergy (Verified 09/28/17 11:31) Swelling trimethoprim [From Bactrim] Allergy (Verified 09/28/17 11:31) Swelling Current Medications Generic Name Dose Route Start Last Admin Trade Name Freq PRN Reason Stop Dose Admin Acetaminophen 1,000 mg 10/07/17 22:00 10/17/17 14:35 Tylenol PO 1,000 mg Q8 MADDISON Administration Amlodipine Besylate 10 mg 10/08/17 06:00 10/17/17 06:00 Norvasc PO 10 mg DAILY MADDISON Administration Aspirin 325 mg 10/08/17 08:00 10/17/17 08:00 Aspirin PO 325 mg DAILY@0800 MADDISON Administration Bisacodyl 10 mg 10/07/17 21:36 Dulcolax PO DAILY PRN Constipation Calamine/Phenol 1 applic 10/09/17 22:00 10/17/17 15:49 Calmoseptine Ointment TOPICAL 1 applicatio 0600,2200 [facility] Administration Protocol Calcium/Vitamin D 1 tablet 10/08/17 06:00 10/17/17 06:00 Os-Shine 500mg + D PO 1 tablet DAILY [facility] Administration Ciprofloxacin HCl 250 mg 10/18/17 06:00 Cipro PO 10/28/17 06:01 BID [facility] Enoxaparin Sodium 40 mg 10/08/17 06:00 10/17/17 06:00 Lovenox SC 40 mg DAILY@0600 MADDISON Administration Gabapentin 300 mg 10/08/17 08:00 10/17/17 17:14 Neurontin PO 300 mg BIDCM [facility] Administration Gabapentin 400 mg 10/07/17 22:00 10/09/17 19:52 Neurontin PO 400 mg QHS MADDISON Administration Hydrochlorothiazide 25 mg 10/08/17 06:00 10/17/17 06:00 Hctz PO 25 mg DAILY MADDISON Administration Lisinopril 10 mg 10/08/17 06:00 10/17/17 06:00 Zestril PO 10 mg DAILY MADDISON Administration Lorazepam 0.25 - 0.5 mg 10/08/17 04:39 10/17/17 18:01 Ativan PO 0.5 mg Q6H PRN PRN Administration ANXIETY Metoprolol Tartrate 50 mg 10/08/17 06:00 10/17/17 17:14 Lopressor (Beta Saloni) PO 50 mg BID MADDISON Administration Nitroglycerin 0.4 mg 10/07/17 21:08 Nitrostat SUBLINGUAL Q5M PRN CARDIAC/CHEST PAIN Nutritional Formula (Lactose Free) 120 ml 10/07/17 22:00 10/17/17 17:09 Ensure Enlive PO Not Given 4X/DAY [facility] Pantoprazole Sodium 40 mg 10/08/17 06:00 10/17/17 06:00 Protonix PO 40 mg DAILY MADDISON Administration Phenazopyridine HCl 190 mg 10/17/17 12:45 Azo Standard PO TIDCM MADDISON Polyethylene Glycol 17 gm 10/08/17 06:00 10/17/17 06:00 Miralax PO 17 gm DAILY MADDISON Administration Pravastatin Sodium 40 mg 10/07/17 22:00 10/09/17 19:52 Pravachol PO 40 mg QHS [facility] Administration Senna/Docusate Sodium 1 tablet 10/08/17 06:00 10/17/17 17:13 Senokot-S, Caitlin-Colace PO 1 tablet BID MADDISON Administration Problem List Urinary tract infection (Acute) Right hip pain (Acute) GERD (gastroesophageal reflux disease) (Chronic) Hyperlipidemia (Chronic) Chronic pain (Chronic) Vital Signs Temp Pulse Resp BP Pulse Ox 97.1 F L 65 18 115/55 L 97 10/17/17 16:00 10/17/17 17:14 10/17/17 16:00 10/17/17 17:14 10/17/17 16:00 Oxygen Delivery Method Room Air Weight: 96.615 kg Body Mass Index (BMI) 36.6 Finger Stick Blood Glucose 106 Sodium 133 mmol/L (136-145) L 10/08/17 06:35 Potassium 3.7 mmol/L (3.5-5.1) 10/08/17 06:35 Chloride 102 mmol/L (98-107) 10/08/17 06:35 Carbon Dioxide 23.0 mmol/L (21.0-32.0) 10/08/17 06:35 Anion Gap 8 (5-15) 10/08/17 06:35 BUN 12 mg/dL (7-18) 10/08/17 06:35 Creatinine 0.78 mg/dL (0.55-1.02) 10/08/17 06:35 Est GFR (MDRD) Af Amer 91 mL/min (>60) 10/08/17 06:35 Est GFR (MDRD) Non-Af 75 mL/min (>60) 10/08/17 06:35 BUN/Creatinine Ratio 15.3 RATIO (10-20) 10/08/17 06:35 Glucose 138 mg/dL (74-106) H 10/08/17 06:35 Assessment/Plan: Psychotropic Medications: Unnecessary Medications: Bowel Regimen: - Provider Comments Provider responsibility: Provider responsible to enter orders to implement recommendations Provider Comments to Recommendations by Pharmacy: Agree
--- NOTE | 2017-10-13 22:45 | PHA.CONS_ITS ---
<Ki Cortez D - Last Filed: 10/13/17 22:33> Progress Note - Pharmacy Subjective: [] Objective: Allergies cortisone [Cortisone] Allergy (Verified 09/28/17 11:31) Swelling Penicillins Allergy (Verified 09/28/17 11:31) Swelling sulfamethoxazole [From Bactrim] Allergy (Verified 09/28/17 11:31) Swelling trimethoprim [From Bactrim] Allergy (Verified 09/28/17 11:31) Swelling Current Medications Generic Name Dose Route Start Last Admin Trade Name Freq PRN Reason Stop Dose Admin Acetaminophen 1,000 mg 10/07/17 22:00 10/09/17 20:36 Tylenol PO 1,000 mg Q8 MADDISON Administration Amlodipine Besylate 10 mg 10/08/17 06:00 10/09/17 05:01 Norvasc PO 10 mg DAILY MADDISON Administration Aspirin 325 mg 10/08/17 08:00 10/09/17 08:18 Aspirin PO 325 mg DAILY@0800 MADDISON Administration Bisacodyl 10 mg 10/07/17 21:36 Dulcolax PO DAILY PRN Constipation Calamine/Phenol 1 applic 10/09/17 22:00 10/09/17 21:31 Calmoseptine Ointment TOPICAL 1 applicatio 0600,2200 MADDISON Administration Protocol Calcium/Vitamin D 1 tablet 10/08/17 06:00 10/09/17 05:00 Os-Shine 500mg + D PO 1 tablet DAILY MADDISON Administration Enoxaparin Sodium 40 mg 10/08/17 06:00 10/09/17 05:00 Lovenox SC 40 mg DAILY@0600 MADDISON Administration Gabapentin 300 mg 10/08/17 08:00 10/09/17 18:05 Neurontin PO 300 mg BIDCM MADDISON Administration Gabapentin 400 mg 10/07/17 22:00 10/09/17 19:52 Neurontin PO 400 mg QHS MADDISON Administration Hydrochlorothiazide 25 mg 10/08/17 06:00 10/09/17 05:00 Hctz PO 25 mg DAILY MADDISON Administration Lisinopril 10 mg 10/08/17 06:00 10/09/17 05:01 Zestril PO 10 mg DAILY MADDISON Administration Lorazepam 0.25 - 0.5 mg 10/08/17 04:39 10/08/17 04:48 Ativan PO 0.5 mg Q6H PRN PRN Administration ANXIETY Metoprolol Tartrate 50 mg 10/08/17 06:00 10/09/17 18:05 Lopressor (Beta Saloni) PO 50 mg BID MADDISON Administration Nitroglycerin 0.4 mg 10/07/17 21:08 Nitrostat SUBLINGUAL Q5M PRN CARDIAC/CHEST PAIN Nutritional Formula (Lactose Free) 120 ml 10/07/17 22:00 10/09/17 19:52 Ensure Enlive PO 120 ml 4X/DAY MADDISON Administration Pantoprazole Sodium 40 mg 10/08/17 06:00 10/09/17 05:00 Protonix PO 40 mg DAILY [facility]ON Administration Polyethylene Glycol 17 gm 10/08/17 06:00 10/09/17 05:03 Miralax PO 17 gm DAILY MADDISON Administration Pravastatin Sodium 40 mg 10/07/17 22:00 10/09/17 19:52 Pravachol PO 40 mg QHS MADDISON Administration Senna/Docusate Sodium 1 tablet 10/08/17 06:00 10/09/17 18:05 Senokot-S, Caitlin-Colace PO 1 tablet BID MADDISON Administration Tuberculin PPD 5 tu 10/15/17 10:00 Tubersol, Aplisol, Ppd ID 10/15/17 10:01 X1 ONE Problem List Urinary tract infection (Acute) Right hip pain (Acute) GERD (gastroesophageal reflux disease) (Chronic) Hyperlipidemia (Chronic) Chronic pain (Chronic) Vital Signs Temp Pulse Resp BP Pulse Ox 97.3 F L 76 16 138/71 H 94 10/09/17 15:22 10/09/17 20:00 10/09/17 20:00 10/09/17 18:05 10/09/17 20:00 Oxygen Delivery Method Room Air Weight: 96.615 kg Body Mass Index (BMI) 36.6 Finger Stick Blood Glucose 106 Sodium 133 mmol/L (136-145) L 10/08/17 06:35 Potassium 3.7 mmol/L (3.5-5.1) 10/08/17 06:35 Chloride 102 mmol/L (98-107) 10/08/17 06:35 Carbon Dioxide 23.0 mmol/L (21.0-32.0) 10/08/17 06:35 Anion Gap 8 (5-15) 10/08/17 06:35 BUN 12 mg/dL (7-18) 10/08/17 06:35 Creatinine 0.78 mg/dL (0.55-1.02) 10/08/17 06:35 Est GFR (MDRD) Af Amer 91 mL/min (>60) 10/08/17 06:35 Est GFR (MDRD) Non-Af 75 mL/min (>60) 10/08/17 06:35 BUN/Creatinine Ratio 15.3 RATIO (10-20) 10/08/17 06:35 Glucose 138 mg/dL (74-106) H 10/08/17 06:35 Assessment/Plan: 1) Pain APAP scheduled, gabapentin 3x daily. Continue to monitor daily pain scores. 2) HTN/CAD Amlodipine, HCTZ, lisinopril, metoprolol, prn NTG, pravastatin. Continue to monitor BP/HR, BUN/SCr, electrolytes, lipids, prn medication use, for chest pain. 3) Cardiac ASA daily. Continue to monitor for s/s bleeding/clot. 4) Nutrition Calcium/D, Ensure. Continue to monitor clinically. 5) DVT PPx Enoxaparin daily. Continue to monitor s/s bleeding/clot. 6) Derm Calmoseptine topically. Continue to monitor clinically. 7) GI Pantoprazole daily. Continue to monitor s/s GI distress. Psychotropic Medications: 8) Anxiety Lorazepam as needed. Continue to monitor prn medication use, for s/s anxiety. Unnecessary Medications: None Bowel Regimen: 9) Senna/s, PEG, prn bisacodyl. Continue to monitor prn medication use, for constipation/diarrhea. Date of Note:: 10/13/17 - Provider Comments Provider responsibility: Provider responsible to enter orders to implement recommendations <Chris Burdick Chi - Last Filed: 10/17/17 18:16> Progress Note - Pharmacy Subjective: [] Objective: Allergies cortisone [Cortisone] Allergy (Verified 09/28/17 11:31) Swelling Penicillins Allergy (Verified 09/28/17 11:31) Swelling sulfamethoxazole [From Bactrim] Allergy (Verified 09/28/17 11:31) Swelling trimethoprim [From Bactrim] Allergy (Verified 09/28/17 11:31) Swelling Current Medications Generic Name Dose Route Start Last Admin Trade Name Freq PRN Reason Stop Dose Admin Acetaminophen 1,000 mg 10/07/17 22:00 10/17/17 14:35 Tylenol PO 1,000 mg Q8 MADDISON Administration Amlodipine Besylate 10 mg 10/08/17 06:00 10/17/17 06:00 Norvasc PO 10 mg DAILY [facility] Administration Aspirin 325 mg 10/08/17 08:00 10/17/17 08:00 Aspirin PO 325 mg DAILY@0800 MADDISON Administration Bisacodyl 10 mg 10/07/17 21:36 Dulcolax PO DAILY PRN Constipation Calamine/Phenol 1 applic 10/09/17 22:00 10/17/17 15:49 Calmoseptine Ointment TOPICAL 1 applicatio 0600,2200 [facility] Administration Protocol Calcium/Vitamin D 1 tablet 10/08/17 06:00 10/17/17 06:00 Os-Shine 500mg + D PO 1 tablet DAILY [facility] Administration Ciprofloxacin HCl 250 mg 10/18/17 06:00 Cipro PO 10/28/17 06:01 BID [facility] Enoxaparin Sodium 40 mg 10/08/17 06:00 10/17/17 06:00 Lovenox SC 40 mg DAILY@0600 MADDISON Administration Gabapentin 300 mg 10/08/17 08:00 10/17/17 17:14 Neurontin PO 300 mg BIDCM [facility] Administration Gabapentin 400 mg 10/07/17 22:00 10/09/17 19:52 Neurontin PO 400 mg QHS MADDISON Administration Hydrochlorothiazide 25 mg 10/08/17 06:00 10/17/17 06:00 Hctz PO 25 mg DAILY [facility]ON Administration Lisinopril 10 mg 10/08/17 06:00 10/17/17 06:00 Zestril PO 10 mg DAILY [facility]ON Administration Lorazepam 0.25 - 0.5 mg 10/08/17 04:39 10/17/17 18:01 Ativan PO 0.5 mg Q6H PRN PRN Administration ANXIETY Metoprolol Tartrate 50 mg 10/08/17 06:00 10/17/17 17:14 Lopressor (Beta Saloni) PO 50 mg BID [facility]ON Administration Nitroglycerin 0.4 mg 10/07/17 21:08 Nitrostat SUBLINGUAL Q5M PRN CARDIAC/CHEST PAIN Nutritional Formula (Lactose Free) 120 ml 10/07/17 22:00 10/17/17 17:09 Ensure Enlive PO Not Given 4X/DAY [facility] Pantoprazole Sodium 40 mg 10/08/17 06:00 10/17/17 06:00 Protonix PO 40 mg DAILY [facility] Administration Phenazopyridine HCl 190 mg 10/17/17 12:45 Azo Standard PO TIDCM MADDISON Polyethylene Glycol 17 gm 10/08/17 06:00 10/17/17 06:00 Miralax PO 17 gm DAILY [facility]ON Administration Pravastatin Sodium 40 mg 10/07/17 22:00 10/09/17 19:52 Pravachol PO 40 mg QHS [facility] Administration Senna/Docusate Sodium 1 tablet 10/08/17 06:00 10/17/17 17:13 Senokot-S, Caitlin-Colace PO 1 tablet BID MADDISON Administration Problem List Urinary tract infection (Acute) Right hip pain (Acute) GERD (gastroesophageal reflux disease) (Chronic) Hyperlipidemia (Chronic) Chronic pain (Chronic) Vital Signs Temp Pulse Resp BP Pulse Ox 97.1 F L 65 18 115/55 L 97 10/17/17 16:00 10/17/17 17:14 10/17/17 16:00 10/17/17 17:14 10/17/17 16:00 Oxygen Delivery Method Room Air Weight: 96.615 kg Body Mass Index (BMI) 36.6 Finger Stick Blood Glucose 106 Sodium 133 mmol/L (136-145) L 10/08/17 06:35 Potassium 3.7 mmol/L (3.5-5.1) 10/08/17 06:35 Chloride 102 mmol/L (98-107) 10/08/17 06:35 Carbon Dioxide 23.0 mmol/L (21.0-32.0) 10/08/17 06:35 Anion Gap 8 (5-15) 10/08/17 06:35 BUN 12 mg/dL (7-18) 10/08/17 06:35 Creatinine 0.78 mg/dL (0.55-1.02) 10/08/17 06:35 Est GFR (MDRD) Af Amer 91 mL/min (>60) 10/08/17 06:35 Est GFR (MDRD) Non-Af 75 mL/min (>60) 10/08/17 06:35 BUN/Creatinine Ratio 15.3 RATIO (10-20) 10/08/17 06:35 Glucose 138 mg/dL (74-106) H 10/08/17 06:35 Assessment/Plan: Psychotropic Medications: Unnecessary Medications: Bowel Regimen: - Provider Comments Provider responsibility: Provider responsible to enter orders to implement recommendations Provider Comments to Recommendations by Pharmacy: Agree
[2017-10-16 16:59] LABS: Color, Urine Yellow (Yellow); Glucose, Dipstick Normal (Normal); Ketone-Dipstick Negative (Negative); Leukocyte Esterase-Dipstick 500 /ul (Negative); Nitrite-Dipstick Negative (Negative); Occult Blood-Urine 25 /ul (Negative); Protein-Dipstick 15 mg/dl (Negative); Urine Bilirubin Dipstick Negative (Negative); Urine Clarity Cloudy (Clear); Urine Urobilinogen Normal (Normal)
[2017-10-16 17:10] LABS: Bacteria 3+ /hpf (None Seen); Hyaline Cast 0-5 SEEN /lpf (0-5); Mucous, Urine 1+ /hpf (<or=2+); Red Blood Cells-Urine 0-5 SEEN /hpf (0-5); Squamous Epithelial Cells - UA 0-5 SEEN /hpf (5-10)
[2017-10-16 17:11] LABS: White Blood Cells 25-50 SEEN /hpf (0-5)
[2017-10-17 06:00] VITALS: BP 132/68; PULSE 74
[2017-10-17] MEDS: Lisinopril 10 MG Tablet PO (06:00)
[2017-10-17] MEDS: Metoprolol Tartrate 50 MG Tablet PO ×2 (06:00→17:14)
[2017-10-17] MEDS: Calcium Carb/Vitamin D 1 TABLET Tablet PO (06:00)
[2017-10-17] MEDS: Enoxaparin 40 MG/0.4 ML Syringe SC (06:00)
[2017-10-17] MEDS: hydroCHLOROthiazide 25 MG Tablet PO (06:00)
[2017-10-17] MEDS: Senna/Docusate Sodium 1 Tablet PO ×2 (06:00→17:13)
[2017-10-17] MEDS: Acetaminophen 500 MG Tablet 1000 MG PO ×4 (06:00→20:06)
[2017-10-17] MEDS: Pantoprazole Sodium 40 MG Tablet PO (06:00)
[2017-10-17] MEDS: amLODIPine 10 MG Tablet PO (06:00)
[2017-10-17] MEDS: Polyethylene Glycol 3350 17 GM PACKET PO (06:00)
[2017-10-17] MEDS: Gabapentin 300 MG Capsule PO ×2 (08:00→17:14)
[2017-10-17] MEDS: Aspirin 325 MG Tablet PO (08:00)
[2017-10-17 10:00] VITALS: PULSE 88; RESP 18; O2SAT 95
--- NOTE | 2017-10-17 15:16 | CHAPLAIN ---
Type of Pastoral Visit _x__ Initial Visit ___ Follow-up Visit ___ On-call Visit ___ General Patient Visit ___ Spiritual Assessment ___ Family Conference ___ Bereavement ___ Rapid Response ___ Code Blue ___ Other (describe below) Pastoral Care Referral From _x__ Patient ___ Family ___ Nurse ___ Physician ___ Airplane Dispatch Clerk ___ Finisher [employer] ___ Other (describe below) Sacrament/Intervention ___ Active listening ___ Anointing ___ Mandaeism ___ Bereavement ___ Communion ___ [place] exploration ___ ___ Life review _x__ Prayer ___ Reconciliation ___ Sacrament of Sick _x__ Supportive presence ___ Wedding ___ Other (describe below) Pastoral Comments patient was up in chair but tells this vice president network that she is feeling weak today; pt said that she has spoken to her RN about this; sister of pt is with her in room; offered to say a prayer and keep visit very short; pt agreed
[2017-10-17] MEDS: Menthol/Lanolin/Calamine/Znox 113 GM Tube 1 APPLIC TOPICAL ×3 (15:49→20:07)
[2017-10-17 16:00] VITALS: BP 115/55; PULSE 65; RESP 18; TEMP 36.2; O2SAT 97
[2017-10-17 17:14] VITALS: BP 115/55; PULSE 65
[2017-10-17] MEDS: LORazepam 0.5 MG Tablet PO (18:01)
--- NOTE | 2017-10-17 18:08 | NURSING ---
Pt obsessing over catheter, stating get it out I cant sleep, this nurse spent some time one on one, and tried redirection which was unsuccessful, PRN ativan given at this time. Mehnaz RN aware
[2017-10-17] MEDS: Pravastatin 40 MG Tablet PO (20:07)
[2017-10-17] MEDS: Gabapentin 400 MG Capsule PO (20:08)
--- NOTE | 2017-10-17 20:48 | NURSING ---
Pt screaming out and being rude to staff. This nurse in to assess the situation. Pt yelling out she wants to go home and staffing will not let her. This nurse educated pt on safety concerns, pt is currently a max x2 assist and that pt has not been cleared by the doctor at this time. Pt requesting to remain in recliner at this time until in the AM when a social welfare clerk is in to talk to her. Bienvenido hose were removed, x2 blankets applied per pt request. Water pitcher filled and call light in reach. This nurse educated pt staff would be in to check on pt every hour. Pt was in agreement as long as someone in the morning comes to talk to her. Will update Fanny.
[2017-10-18] MEDS: Lisinopril 10 MG Tablet PO (04:48)
[2017-10-18] MEDS: Senna/Docusate Sodium 1 Tablet PO ×2 (04:48→17:15)
[2017-10-18] MEDS: hydroCHLOROthiazide 25 MG Tablet PO (04:48)
[2017-10-18] MEDS: amLODIPine 10 MG Tablet PO (04:49)
[2017-10-18] MEDS: Calcium Carb/Vitamin D 1 TABLET Tablet PO (04:50)
[2017-10-18] MEDS: Pantoprazole Sodium 40 MG Tablet PO (04:50)
[2017-10-18 04:51] VITALS: BP 160/84; PULSE 80
[2017-10-18] MEDS: Polyethylene Glycol 3350 17 GM PACKET PO (04:51)
[2017-10-18] MEDS: Metoprolol Tartrate 50 MG Tablet PO ×2 (04:51→17:14)
[2017-10-18] MEDS: Enoxaparin 40 MG/0.4 ML Syringe SC (05:00)
[2017-10-18] MEDS: Acetaminophen 500 MG Tablet 1000 MG PO ×3 (06:23→20:48)
[2017-10-18] MEDS: Gabapentin 300 MG Capsule PO ×2 (07:57→17:13)
[2017-10-18] MEDS: Aspirin 325 MG Tablet PO (07:57)
[2017-10-18] MEDS: Menthol/Lanolin/Calamine/Znox 113 GM Tube 1 APPLIC TOPICAL ×2 (07:58→20:47)
[2017-10-18] MEDS: Phenazopyridine 95 MG Tablet 190 MG PO ×3 (08:00→17:13)
[2017-10-18] MEDS: Ciprofloxacin 250 MG Tablet PO ×2 (08:00→17:14)
--- NOTE | 2017-10-18 09:33 | CASEMGMT ---
Addendum entered by Isaura Akers 10/18/17 09:49: Referral made to home health services for home health aide as well. Original Note: Social Work Spoke with resident in room. Resident requesting for discharge date to be set for 10/19/17. Spoke with staff/therapy, team is not recommending for resident to discharge at this time and is recommending for resident to continue with further care and treatment on the Transitional Care Unit for at least another week. This nephrology social worker communicating to resident that team is not recommending discharge at this time. Resident declining to follow recommendation and is reporting to continue to plan to discharge home alone on 10/19/17 per resident choice. Resident is open to home health services being set up within the home for physical and occupational therapy as well as snf. Speech therapy reporting that resident does not need to continue with further Speech therapy. Resident requesting for home health services to be set up through [facility] ([facility] Resident reporting to have a walker already set up within the home and to have no durable medical equipment needs at this time. This nephrology social worker also broaching topic of [facility] referral, resident is agreeable to recommendation. Resident requesting for this nephrology social worker to contact resident sister, Lois to check into transportation home for resident. Telephone call to Lois, no answer. This nephrology social worker communicating to resident that this nephrology social worker was unable to get a hold of Lois at this time. Support given. [facility] This nephrology social worker making referral for physical and occupational therapy as well as snf. Order to be completed. Referral placed to [facility]. Proposed discharge date: 10/19/17 per resident choice. Isaura SENIOR, NURSE WOUND
--- NOTE | 2017-10-18 13:32 | CASEMGMT ---
Insurance Clinical information faxed, pending continued stay approval at this time. Auth#[id number] Isaura SENIOR, MINE ENGINEER
[2017-10-18 13:52] LABS: Color, Urine Yellow (Yellow); Glucose, Dipstick NEGATIVE (Normal); Ketone-Dipstick Negative (Negative); Leukocyte Esterase-Dipstick 100 /ul (Negative); Nitrite-Dipstick Positive (Negative); Occult Blood-Urine Negative /ul (Negative); Protein-Dipstick Negative (Negative); Specific Gravity, Urine 1.005 (1.002-1.030); Urine Bilirubin Dipstick Negative (Negative); Urine Clarity Sl Cldy (Clear); Urine Urobilinogen Normal (Normal)
[2017-10-18 15:36] VITALS: BP 130/60; PULSE 71; RESP 18; TEMP 36.8; O2SAT 94
[2017-10-18 17:14] VITALS: BP 130/60; PULSE 71
--- NOTE | 2017-10-18 18:34 | NURSING ---
NO to d/c lovenox and d/c cotto catheter before discharge. Urine culture reviewed by Dr. Burdick, NO for IV rocephin 1 gram IV [id number] x10 days. Patient states she is going home tomorrow, regardless of the urine culture results and need for Iv antibiotics. Culture results showed to patient and possible complications of untreated UTI explained, patient insistent on discharging home tomorrow. Dr. Burdick updated. Patient is agreeable to getting dose of antibiotic tonight.
[2017-10-18 20:12] VITALS: PULSE 68; RESP 18; O2SAT 96
[2017-10-18] MEDS: Gabapentin 400 MG Capsule PO (20:47)
[2017-10-18] MEDS: Pravastatin 40 MG Tablet PO (20:48)
[2017-10-18] MEDS: Ceftriaxone 1 GM/50 ML BAG IV (21:30)
[2017-10-18] MEDS: 0.9% NaCl Peripheral Flush Adult/Peds IV (22:32)
[2017-10-18] MEDS: LORazepam 0.5 MG Tablet PO (22:32)
[2017-10-19 06:19] VITALS: BP 148/78; PULSE 78
[2017-10-19] MEDS: Metoprolol Tartrate 50 MG Tablet PO (06:19)
[2017-10-19] MEDS: Menthol/Lanolin/Calamine/Znox 113 GM Tube 1 APPLIC TOPICAL (06:19)
[2017-10-19] MEDS: Lisinopril 10 MG Tablet PO (06:19)
[2017-10-19] MEDS: hydroCHLOROthiazide 25 MG Tablet PO (06:19)
[2017-10-19] MEDS: Senna/Docusate Sodium 1 Tablet PO (06:20)
[2017-10-19] MEDS: Pantoprazole Sodium 40 MG Tablet PO (06:20)
[2017-10-19] MEDS: Calcium Carb/Vitamin D 1 TABLET Tablet PO (06:20)
[2017-10-19] MEDS: amLODIPine 10 MG Tablet PO (06:21)
--- NOTE | 2017-10-19 06:23 | NURSING ---
PRN ativan effective, pt able to rest for most of night. Continued to moan throughout night, loud in morning. While giving am medications pt stated repeatedly I'm not sleepy. This nurse assured pt nothing about sleep was mentioned, but she did seem uncomfortable. Pt stated I am. Unable to give tylenol d/t flagged as exceeding 24hour limit. Pt aware of this. Does not appear to be in pain, accepted medications without issue, holding own water, but did not stop moaning. Gently reminded pt to allow staff to help her as needed until she is stronger. She dismissed this stating I'm going home Repositioned for comfort, continuing to monitor.
[2017-10-19] MEDS: Aspirin 325 MG Tablet PO (07:48)
[2017-10-19] MEDS: Gabapentin 300 MG Capsule PO (07:48)
[2017-10-19] MEDS: Phenazopyridine 95 MG Tablet 190 MG PO (07:49)
--- NOTE | 2017-10-19 08:18 | CASEMGMT ---
Social Work Nursing reporting that resident now has a UTI and Dr. Burdick is recommending for I.V. therapy for the next 10 days. Nursing reporting that resident is declining to continue with stay or have continued I.V. therapy. Spoke with resident in room. Resident continuing to report to choose to discharge home today and is reporting understanding of UTI and the importance of following Dr. Burdick recommendation. Resident reporting to be choosing to not have continued I.V. therapy and to choose to discharge home. Resident reporting to have transportation set up via [employer] (resident sister). Support given. A conversation was also had with resident juan Marcela. Marcela also agreeing with staff and does not believe that resident is ready to return home at this time. Marcela also reporting to have spoken with resident and resident is not open to hearing what Marcela has to say. Marcela stating that resident can be very determined and that when resident makes up mind there is no changing resident mind. Marcela aware of staff concerns and recommendations. Support given. Proposed discharge date: 10/19/17 PLAN: Discharge home alone with home health services. Isaura SENIOR, FRETTED [employer]ING INSTRUMENT REPAIRER
[2017-10-19 09:12] VITALS: PULSE 61; RESP 18; O2SAT 96
--- NOTE | 2017-10-19 09:25 | PCM.DC ---
- Discharge Diagnoses Current Active Problems: Current Active and Chronic Problems Urinary tract infection (Acute) Right hip pain (Acute) GERD (gastroesophageal reflux disease) (Chronic) Hyperlipidemia (Chronic) Chronic pain (Chronic) You will use the following diet at home:: No restrictions, Regular Your food should be the consistency of: Regular Your liquids should be the consistency of: Regular/Thin Discharge Activity: Return to Normal Activity, May Not Drive, May Shower, Use Walker Weight Bearing Status: Weight bearing as tolerated Call your doctor if you observe: Fever of 101 or Higher, Inability to urinate, Inability to have a bowel movement, Shortness of breath, Chest pain, Uncontrolled pain Allergies/Adverse Reactions: Allergies cortisone [Cortisone] Allergy (Verified 09/28/17 11:31) Swelling Penicillins Allergy (Verified 09/28/17 11:31) Swelling sulfamethoxazole [From Bactrim] Allergy (Verified 09/28/17 11:31) Swelling trimethoprim [From Bactrim] Allergy (Verified 09/28/17 11:31) Swelling Medications to take at Discharge Calcium Carbonate/Vitamin D3 [Calcium 600-Vit D3 400 Tablet] 1 each PO DAILY 06/25/13 Glucosamine Sulfate Dipot Chlr [Glucosamine Relief] 500 mg PO DAILY 06/25/13 Hydrochlorothiazide 25 mg PO DAILY 06/25/13 Pantoprazole Sodium [Protonix] 40 mg PO DAILY 06/27/13 Acetaminophen [Tylenol] 1,000 mg PO Q8 10/07/17 Amlodipine [Norvasc] 10 mg PO DAILY 10/07/17 Aspirin 325 mg PO DAILY@0800 10/07/17 Gabapentin [Neurontin] 300 mg PO BIDCM 10/07/17 Gabapentin [Neurontin] 400 mg PO QHS 10/07/17 Lisinopril [Zestril] 10 mg PO DAILY 10/07/17 Metoprolol Tartrate [Lopressor (beta kirby)] 50 mg PO BID 10/07/17 Nitroglycerin [Nitrostat] 0.4 mg SUBLINGUAL Q5M PRN tablet 10/07/17 Pravastatin [Pravachol] 40 mg PO QHS 10/07/17 Primary Care Physician: Regi Aguilar MD [Primary Care Provider] - Please follow up with your Primary Care Physician in: 1 day. Please Follow Up With: Dr Aguilar When: 1 day. Proposed Discharge Date: 10/19/17
[2017-10-19 09:26] VITALS: BP 103/53; PULSE 61; RESP 20; TEMP 36.8; O2SAT 97
--- NOTE | 2017-10-19 09:27 | PCM.DC.SUM ---
Discharge Date and Diagnosis - Problem List Patient Problems: Active and Suspected Problems Urinary tract infection (Acute) Right hip pain (Acute) Date of Admission: 10/07/17 Date of Discharge: 10/19/17 - Primary Discharge Diagnosis Active and Suspected Problems Urinary tract infection (Acute) Right hip pain (Acute) - Secondary Discharge Diagnosis Chronic Problems HTN (hypertension) (Chronic) Anxiety (Chronic) Neuropathy (Chronic) Microcytic anemia (Chronic) History of urinary self-catheterization (Chronic) Osteoarthritis (Chronic) History of coronary artery disease (Chronic) Grade I diastolic dysfunction (Chronic) GERD (gastroesophageal reflux disease) (Chronic) Hyperlipidemia (Chronic) Chronic pain (Chronic) Hospital Course and Treatment Imaging Results: 10/07/17 21:26 Diet: Cardiac/Low Cholesterol Labs (Last 48 Hours) 10/15/17 10/15/17 10/17/17 05:55 05:55 08:10 WBC Pending RBC Pending Hgb Pending Hct Pending MCV Pending MCH Pending MCHC Pending RDW Pending RDW Differential Pending Plt Count Pending Neut % (Auto) Pending Absolute Neuts (auto) Pending Total Counted Pending Sodium Pending Potassium Pending Chloride Pending Carbon Dioxide Pending Anion Gap Pending BUN Pending Creatinine Pending Est GFR (MDRD) Af Amer Pending Est GFR (MDRD) Non-Af Pending BUN/Creatinine Ratio Pending Glucose Pending Calcium Pending Urine Color Yellow Urine Clarity Sl Cldy Urine pH 7.0 Ur Specific [place] 1.005 Urine Protein Negative Urine Glucose (UA) NEGATIVE Urine Ketones Negative Urine Occult Blood Negative Urine Nitrite Positive H Urine Bilirubin Negative Urine Urobilinogen Normal Ur Leukocyte Esterase 100 H Operations: None Procedures: None Summary of Care Provided: The patient is a 82 year old Female with below past medical history hospitalized for acute delirium secondary to urinary tract infection, complicated by NSTEMI from demand ischemia, acute on chronic diastolic heart failure, admitted to TCU with debility, here for rehabilitation, strengthening, prior to assisted placement, patient not safe to live alone. 10/18/2017 Resident developed hematuria, UA consistent with UTI, Rocephin 1GM IV given, urine culture pending, due to resident allergies, she may need further antibiotic treatment. Discharge home alone with [facility]. Discharge Diet: No Restrictions Discharge Activity: Return to Normal Activity, May Not Drive, May Shower, Use Walker Weight Bearing Status: Weight bearing as tolerated Call your doctor if you observe: Fever of 101 or Higher, Inability to urinate, Inability to have a bowel movement, Shortness of breath, Chest pain, Uncontrolled pain Home Medications: Medications to take at Discharge Calcium Carbonate/Vitamin D3 [Calcium 600-Vit D3 400 Tablet] 1 each PO DAILY 06/25/13 Glucosamine Sulfate Dipot Chlr [Glucosamine Relief] 500 mg PO DAILY 06/25/13 Hydrochlorothiazide 25 mg PO DAILY 06/25/13 Pantoprazole Sodium [Protonix] 40 mg PO DAILY 06/27/13 Acetaminophen [Tylenol] 1,000 mg PO Q8 10/07/17 Amlodipine [Norvasc] 10 mg PO DAILY 10/07/17 Aspirin 325 mg PO DAILY@0800 10/07/17 Gabapentin [Neurontin] 300 mg PO BIDCM 10/07/17 Gabapentin [Neurontin] 400 mg PO QHS 10/07/17 Lisinopril [Zestril] 10 mg PO DAILY 10/07/17 Metoprolol Tartrate [Lopressor (beta kirby)] 50 mg PO BID 10/07/17 Nitroglycerin [Nitrostat] 0.4 mg SUBLINGUAL Q5M PRN tablet 10/07/17 Pravastatin [Pravachol] 40 mg PO QHS 10/07/17 Primary Care Physician: Regi Aguilar MD [Primary Care Provider] - Please follow up with your Primary Care Physician in: 1 day. Please Follow Up With: Dr Aguilar When: 1 day. Disposition: Home with Home Health Minutes spent on discharge:: 35 Patient Condition:: Stable Medical Necessity - Tobacco Use Smoking Status: Never smoker Tobacco Use: Non-smoker Meaningful Use Info Meaningful Use Diagnoses (Choose all that apply): None applicable
--- NOTE | 2017-10-19 09:29 | HHNOTE_ITS ---
Home Health Note - Plan Overview of reason of hospitalization: The patient is a 82 year old Female with below past medical history hospitalized for acute delirium secondary to urinary tract infection, complicated by NSTEMI from demand ischemia, acute on chronic diastolic heart failure, admitted to TCU with debility, here for rehabilitation, strengthening, prior to residential placement, patient not safe to live alone. 10/18/2017 Resident developed hematuria, UA consistent with UTI, Rocephin 1GM IV given, urine culture pending, due to resident allergies, she may need further antibiotic treatment. Discharge home alone with [facility]. Problems: Patient was seen for Urinary tract infection (Acute) Right hip pain (Acute) GERD (gastroesophageal reflux disease) (Chronic) Hyperlipidemia (Chronic) Chronic pain (Chronic) Complete List of Medical Problems HTN (hypertension) (Chronic) Anxiety (Chronic) Neuropathy (Chronic) Demand ischemia (Acute) Hypertensive urgency (Acute) Toxic metabolic encephalopathy (Acute) Hyponatremia (Acute) Hypokalemia (Acute) Microcytic anemia (Chronic) History of urinary self-catheterization (Chronic) Osteoarthritis (Chronic) History of coronary artery disease (Chronic) Grade I diastolic dysfunction (Chronic) Urinary tract infection (Acute) Right hip pain (Acute) GERD (gastroesophageal reflux disease) (Chronic) Hyperlipidemia (Chronic) Chronic pain (Chronic) - Requirements and Reasons Disciplines Needed/Ordered: Care Home, Physical Therapy Reason for Disciplines: Disease Specific Monitoring/education, Medication Management/Knowledge Deficit, Gait Training, Stair Training, Fall Prevention, Home Safety/Equipment Instruction, Balance and/or Posture Training, Transfer Training Related To: Limited/Poor Endurance, Shortness of Breath with Activity, Physical Impairments, Unsteady Gait/Balance, Fall Risk Patient is unable to leave the home: Without Aid of Supportive Devices (crutches , cane, wheelchair, walker), Without the assistance of another person - Additional Disciplines Additional Disciplines Needed/Ordered: Occupational Therapy, Home Health Aide
--- NOTE | 2017-10-19 09:38 | NURSING ---
THIS NURSE REMOVED PT IV AND ESTEVEZ WITH AID IN ROOM. PT TOLERATED WELL,NO COMPLAINTS OR DISCOMFORT. EMPTED ESTEVEZ,URINE RED DUE TO MED PT IS ON.[ PHENAZOPYRIDINE ] WENDY HUDDLESTON AWARE.
--- NOTE | 2017-10-19 09:54 | NURSING ---
Pt. had 1 dose of IVATB ordered for UTI. Dr. Burdick went in to see patient this morning, patient still insistent on going home despite need for IVATB. Patient educated on possible risks and complications on going home with an active UTI, but is still choosing to discharge home. Dr. Aguilar's office called to make appt for resident within 1-2 days, Dr. Aguilar's bilingual secretary states that the office will call the patient to schedule the appointment after discharge. Walker catheter d/c'd, patient tolerated well. Peripheral IV to the RAC d/c'd prior to discharge. Medications reviewed, patient receptive and has no questions.
--- NOTE | 2017-10-20 09:28 | MDS.RN ---
Information for the mds was obtained from review of the clinical record-computer and paper chart d/t hospital computers down part of time during lookback period, and direct observation of resident's care.
== END 2017-10-19 09:52 | disposition home health service (06) | DRG 947 ==
PROVIDERS: Admitting Provider Family Medicine Geriatric Medicine; Family Provider Internal Medicine; PCP Internal Medicine; Visit Provider Family Medicine Geriatric Medicine
DX: R53.81 Other malaise (principal); G93.40 Encephalopathy, unspecified; I21.A1 Myocardial infarction type 2; I50.33 Acute on chronic diastolic (congestive) heart failure; N39.0 Urinary tract infection, site not specified; F41.9 Anxiety disorder, unspecified; E78.5 Hyperlipidemia, unspecified; K21.9 Gastro-esophageal reflux disease without esophagitis; M19.90 Unspecified osteoarthritis, unspecified site; B96.20 Unspecified Escherichia coli [E. coli] as the cause of diseases classified elsewhere; I25.10 Atherosclerotic heart disease of native coronary artery without angina pectoris; I11.0 Hypertensive heart disease with heart failure; Z91.14 Patient's other noncompliance with medication regimen; M25.551 Pain in right hip; G89.29 Other chronic pain; G62.9 Polyneuropathy, unspecified
CPT/HCPCS: 80048; 81001; 81002; 85025; 92507; 92523; 97110; 97116; 97162; 97166; 97530; 97535; 97802; A4216

== ENCOUNTER 2017-10-15 07:38 | Emergency (ER) | payer MEDICARE, SELFPAY ==
--- NOTE | 2017-10-15 07:38 | DT_ITS ---
This patient was seen during an EMR downtime October 10, 2017 - October 17, 2017. This patient may have a combination of paper and electronic documentation or all paper documentation. All documentation is viewable within the e-chart portion of [employer] for each patient visit.
== END 2017-10-15 09:45 | disposition home or self-care (01) ==
LOC: ED 10-16 12:34
PROVIDERS: Emergency Provider Emergency Medicine; Family Provider Internal Medicine; PCP Internal Medicine
DX: I95.9 Hypotension, unspecified (principal); I10 Essential (primary) hypertension; Z95.1 Presence of aortocoronary bypass graft; Z79.899 Other long term (current) drug therapy
CPT/HCPCS: 36415; 96360; 99283

== ENCOUNTER 2017-10-21 07:49 | Observation (INO) | payer MEDICARE, SELFPAY ==
[2017-10-21 07:50] VITALS: BP 141/68; PULSE 58; RESP 16; TEMP 36.5; O2SAT 100; BMI 34.7
--- NOTE | 2017-10-21 08:09 | ED.VISSUMM ---
- ER Visit Summary Date of Service: 10/21/17 Chief Complaint: Generalized weakness unable to ambulate History of Present Illness: The patient is a 82 F who was recently admitted to the hospital for syncope. She signed out AGAINST MEDICAL ADVICE from the TCU this past Tuesday, October 19. She was found by her daughter sitting on the commode. She had been sitting on the commode since 99. One daughter attempted to assist her she had a controlled fall to the floor. Squad was called. Patient states she is unable to care for herself at home. Patient denies fever, chills night sweats. She denies any ocular, visual or auditory symptoms. She denies cardiac or respiratory symptoms. She denies nausea, vomiting or diarrhea. She denies dysuria, frequency, urgency or hematuria. She does complain of lower externally pain. There is a history of neuropathy. She denies any problems with coordination or focal weakness. Patient got a good informant. Per prior records she has history of hypertension, coronary disease, neuropathy and anxiety. Records for most recent visit are not available for review. Physical Examination: Patient's vital signs are marked for slight elevation blood pressure 141/68. BMI is 34.7. Head is atraumatic normocephalic. Pupils are equal round reactive. Extraocular muscles are intact. TMs are pearly white with landmarks noted. Nares patent with no drainage. Posterior pharynx without erythema or exudate. Uvula is midline. There is no dysphonia or dysphasia. Trachea is midline. There is no stridor with auscultation of the neck. Heart is regular without murmur, gallop or rub. S1 and S2 are normal. Lungs are clear to auscultation with good movement of air bilaterally. Abdomen is soft nontender. Bowel sounds are present and normal. There is no CVA tenderness. She is alert oriented. Affect is flat. Motor spiral 5. Sensations intact. DTRs symmetric. There is no Babinski sign. Cranial 2 through 12 are intact. Unable to ambulate. Test Results: CBC is unremarkable and unchanged from prior. BMP is remarkable for a BUN of 33 and a creatinine 1.55. Most recent creatinine was 0.78. BUN was 12. Emergency Department Course and Treatment: Consult was placed to case management. Screening labs were obtained. Once these have returned will contact case management and hospitalist for readmission to TCU or admission to hospital since patient is unable to care for self. Treatment Plan: The hospitalist was paged for 23 hour observation and social work consult for disposition since she is unable to care for herself Disposition: Medical surgical unit Impression: 1. Acute kidney injury 2. Prerenal azotemia 3. Failure to thrive 4. History of hypertension This note was generated with [employer] dictation software. It may contain incorrect words, spelling, and punctuation that were not noted in review of the chart prior to signing ED Disposition - Plan for ED Patient: Chief Complaint: Weakness Referrals: Regi Aguilar MD [Primary Care Provider] -
[2017-10-21 08:15] LABS: Absolute Lymphocyte Count 1.53 X10^3/ul (0.83-4.51); Absolute Neutrophil Count 7.2 X10^3/uL (2.0-7.7); Basophil# 0.03 X10^3/uL; Basophil% 0.3 % (0-1); Eosinophil# 0.03 X10^3/uL; Eosinophils% 0.3 % (0-5); Hematocrit 32.7 % (37-47); Hemoglobin 10.8 g/dl (12.0-15.0); Lymphocyte # 1.53 X10^3/ul (4.0); Lymphocyte % 16.5 % (19-41); Mean Corpuscular Hgb 26.9 pg (27.0-32.0); Mean Corpuscular Volume 81.3 fL (81-99); Mean Platelet Vol. 9.3 fl (6.2-12.0); Monocyte# 0.49 X10^3/uL; Monocyte% 5.3 % (0-10); Neutrophil # 7.15 X10^3/uL (2.7-7.7); Neutrophil % 77.3 % (47-70); Platelet Count 502 K/mm3 (150-450); RBC Distribution Width CV 16.3 % (11.6-14.6); RBC Distribution Width SD 47.4 fl (35.1-43.9); Red Blood Count 4.02 M/mm3 (4.2-5.4); White Blood Count 9.3 K/mm3 (4.4-11.0)
[2017-10-21 08:27] LABS: Anion Gap 9 (5-15); BUN 33 mg/dL (7-18); BUN/Creat Ratio 21.3 RATIO (10-20); Calcium,Total 9.9 mg/dL (8.5-10.1); Chloride 98 mmol/L (98-107); Creatinine, Serum 1.55 mg/dL (0.55-1.02); EST Glomerular Filtration Rate 34 mL/min (>60); Est Glom Filt Rate - Afr Amer 41 mL/min (>60); Glucose 107 mg/dL (74-106); Potassium 3.9 mmol/L (3.5-5.1); Sodium Level 131 mmol/L (136-145)
[2017-10-21 08:29] LABS: POSITIVE COUNT NO; POSITIVE DIFFERENTIAL NO; POSITIVE MORPHOLOGY NO
--- NOTE | 2017-10-21 08:59 | PCM.HP.STD ---
Problem List (1) Generalized weakness Status: Acute (2) HTN (hypertension) Status: Chronic (3) Anxiety Status: Chronic (4) Neuropathy Status: Chronic (5) Hypertensive urgency Status: Acute (6) Hyponatremia Status: Acute (7) Microcytic anemia Status: Chronic (8) History of urinary self-catheterization Status: Chronic (9) Osteoarthritis Status: Chronic (10) History of coronary artery disease Status: Chronic (11) Grade I diastolic dysfunction Status: Chronic (12) Right hip pain Status: Acute (13) GERD (gastroesophageal reflux disease) Status: Chronic (14) Hyperlipidemia Status: Chronic (15) Chronic pain Status: Chronic History of Present Illness Date of Admission: 10/21/17 Chief Complaint: Could not to stand from toilet seat The patient is a 82 year old F with multiple comorbidities including coronary artery disease status post CABG and cardiac stent, neurogenic bladder on self-catheterization, hypertension [] Was brought into ER after daughter found her sitting on the toilet seat for prolonged time. She went to tolerate to to self catheterize to empty the bladder and was not able to get up from the toilet seat. She felt very weak. Later on when her daughter attempted to assist her she could not stand up in a controlled fall on the floor. She was sitting on the toilet for prolonged time. This time, she denies confusion, change in mental status or syncope. Recently she was admitted for right hip and leg pain and found to have negative x-ray. At that time urine culture was positive for E. coli and right lower extremity venous ultrasound was negative. He was treated with Rocephin. At that time she had a stress echo for chest pain and was negative for ischemia. Initial lab in the ER shows creatinine 1.55, BUN 33 suggestive of dehydration her baseline creatinine is normal at 0.78 Past Medical History Past Medical History (Chronic Problems): Chronic Problems HTN (hypertension) (Chronic) Anxiety (Chronic) Neuropathy (Chronic) Microcytic anemia (Chronic) History of urinary self-catheterization (Chronic) Osteoarthritis (Chronic) History of coronary artery disease (Chronic) Grade I diastolic dysfunction (Chronic) GERD (gastroesophageal reflux disease) (Chronic) Hyperlipidemia (Chronic) Chronic pain (Chronic) Allergies cortisone [Cortisone] Allergy (Verified 10/21/17 07:55) Swelling Penicillins Allergy (Verified 10/21/17 07:55) Swelling sulfamethoxazole [From Bactrim] Allergy (Verified 10/21/17 07:55) Swelling trimethoprim [From Bactrim] Allergy (Verified 10/21/17 07:55) Swelling Home Medications: Ambulatory Orders Medication Instructions Recorded Calcium Carbonate/Vitamin D3 1 each PO DAILY 06/25/13 [Calcium 600-Vit D3 400 Tablet] Glucosamine Sulfate Dipot Chlr 500 mg PO DAILY 06/25/13 [Glucosamine Relief] Hydrochlorothiazide 25 mg PO DAILY 06/25/13 Pantoprazole Sodium [Protonix] 40 mg PO DAILY 06/27/13 Acetaminophen [Tylenol] 1,000 mg PO Q8 10/07/17 Amlodipine [Norvasc] 10 mg PO DAILY 10/07/17 Aspirin 325 mg PO DAILY@0800 10/07/17 Gabapentin [Neurontin] 300 mg PO BIDCM 10/07/17 Gabapentin [Neurontin] 400 mg PO QHS 10/07/17 Lisinopril [Zestril] 10 mg PO DAILY 10/07/17 Metoprolol Tartrate [Lopressor 50 mg PO BID 10/07/17 (beta kirby)] Nitroglycerin [Nitrostat] 0.4 mg SUBLINGUAL Q5M PRN tablet 10/07/17 Pravastatin [Pravachol] 40 mg PO QHS 10/07/17 Surgical History: appendectomy, coronary bypass surgery, hysterectomy Psychiatric History: No pertinent psych hx RENTAL REPRESENTATIVE History: No pertinent RENTAL REPRESENTATIVE history Smoking Status: Never smoker - *Family History Maternal History Items: Cancer Paternal History Items: No pertinent history Sibling History Items: Diabetes Review of Systems Constitutional: Reports: Weakness, Fatigue. Denies: Chills, Fever, Weight Change HEENT: Denies: Head Aches, Sinus Congestion, Sinus Drainage Cardiovascular: Denies: Chest Pain, Palpitations Respiratory: Denies: Cough, Shortness of breath at rest, Sputum production Gastrointestinal: Denies: Abdominal Pain, Nausea, Vomiting Genitourinary: Denies: Dysuria Musculoskeletal: Denies: Joint Pain, Joint Tenderness Skin: Denies: Rash, Wounds Neurological: Reports: Balance problems. Denies: Slurred speech, Confusion, Focal weakness, Numbness, Tingling Psychiatric: Denies: Anxiety, Depression, Homicidal Ideations, Suicidal Ideations Hematologic/ Lymphatic: Denies: Easy Bruising, Easy Bleeding VTE Information - Inpt Only VTE Present on Admission: No VTE Mechan Device Prophylaxis: SCD's VTE Pharm Prophylaxis ordered?: Yes Patient Problems: Active and Suspected Problems Generalized weakness (Acute) - Physical Exam General: Alert, Oriented x3, Cooperative HEENT: Atraumatic, PERRLA, EOMI, Normocephalic Oral: Dry Mucosa Neck: Supple, No JVD, Negative Carotid Bruits Lungs: Clear to auscultation, Diminished Cardiovascular: Regular rate, Regular Rhythm, Normal S1, Normal S2, No murmurs Abdomen: Bowel Sounds Present, Soft, Non Tender Extremities: Capillary Refill Less than 3 Seconds, Edema Skin: No rashes, No breakdown Musculoskeletal: Arthritic Changes, Tenderness - Mild tenderness present at both hip joints, right more than left. Neurological: Cranial nerves II-XII grossly intact, - - Mild lower extremity weakness, 4/5 at both hip joints, right seems weaker than left. Psych/Mental Status: Normal Affect, Appropriate Vital Signs Temp Pulse Resp BP Pulse Ox 97.7 F L 58 L 16 141/68 H 100 10/21/17 07:50 10/21/17 07:50 10/21/17 07:50 10/21/17 07:50 10/21/17 07:50 Oxygen Delivery Method Room Air Weight: 202 lb Body Mass Index (BMI) 34.7 Finger Stick Blood Glucose 106 Laboratory Tests Past 24 Hrs 10/21/17 10/21/17 08:05 08:05 WBC 9.3 RBC 4.02 L Hgb 10.8 L Hct 32.7 L MCV 81.3 MCH 26.9 L MCHC 33.0 RDW 16.3 H RDW Differential 47.4 H Plt Count 502 H MPV 9.3 Immature Gran % (Auto) 0.300 Neut % (Auto) 77.3 H Lymph % (Auto) 16.5 L Grainger % (Auto) 5.3 Eos % (Auto) 0.3 Baso % (Auto) 0.3 Absolute Neuts (auto) 7.2 Absolute Lymphs (auto) 1.53 Total Counted Not Reportable Sodium 131 L Potassium 3.9 Chloride 98 Carbon Dioxide 24.0 Anion Gap 9 BUN 33 H Creatinine 1.55 H Estim Creat Clear Calc 25.00 Est GFR (MDRD) Af Amer 41 L Est GFR (MDRD) Non-Af 34 L BUN/Creatinine Ratio 21.3 H Glucose 107 H Calcium 9.9 Assessment/Plan All Active Problems Hypertensive urgency (Acute) Hyponatremia (Acute) Right hip pain (Acute) Generalized weakness (Acute) The patient is a 82 year old F with multiple comorbidities including coronary artery disease status post CABG and cardiac stent, neurogenic bladder on self-catheterization, hypertension [] Was brought into ER after daughter found her sitting on the toilet seat for prolonged time. She went to tolerate to to self catheterize to empty the bladder and was not able to get up from the toilet seat. She felt very weak. Later on when her daughter attempted to assist her she could not stand up in a controlled fall on the floor. She was sitting on the toilet for prolonged time. This time, she denies confusion, change in mental status or syncope. Recently she was admitted for right hip and leg pain and found to have negative x-ray. At that time urine culture was positive for E. coli and right lower extremity venous ultrasound was negative. He was treated with Rocephin. At that time she had a stress echo for chest pain and was negative for ischemia. Initial lab in the ER shows creatinine 1.55, BUN 33 suggestive of dehydration her baseline creatinine is normal at 0.78 1. Weakness of both lower extremity along with control fall probably from osteoarthritis of both hips: Patient is being admitted on the regular MedSurg floor. She denies heavy fall or history of fracture/replacement of her knee joints. Recently she had x-rays of hips and knee joints and lumbar spine which showed degenerative changes along with extensive degenerative changes of lumbar spine. Patient is being admitted in observation for PT and OT evaluation and needs SNF. 2. Acute kidney injury most probably secondary to dehydration/JOSE inhibitor: On IV fluid normal saline. Recheck BMP. Hold nephrotoxic medications including JOSE inhibitor. Strict I&O's. Coronary artery disease status post CABG and stents, grade 1 diastolic chronic heart failure, hypertension: Continue home medication 3. Chronic neurogenic bladder with self-catheterization, she was recently treated with Rocephin in September 2017 for complicated UTI. Will check UA with reflex urine culture. Other Comorbidities include chronic microcytic anemia, peripheral neuropathy, dyslipidemia and chronic pain: Home medication reconciliation done. DVT prophylaxis: Heparin 5000 units subcutaneous twice daily and B/L SCDs This note was generated with [employer] dictation software. Every effort was made to ensure accuracy, however computerized electronics computer mechanic mistakes may persist. Code Visit OBSV E&M: 04276 Initial observation care L3
--- NOTE | 2017-10-21 09:45 | CASEMGMT ---
Social Work Note Updated by Dr. Roe and supercharger mechanic, Yary, that pt was recently discharged from TCU and is too weak to manage at home. Face to face with pt, her sister, and her niece. Introduced self and role at [facility]. The pt reports that she lowered herself to the ground this morning around 0100 and was unable to get up, even with the assistance of family. The squad was called and brought her to the ED for evaluation. The pt and her family do not feel that she is able to manage herself at home presently and would like to seek placement. Pt states that she does not want to return to TCU because she was not pleased with the physician over the unit. Explore other SNF options in the community and they state that they thought RE[facility] Adame on TCU, had already sent information to [facility]. Inform family and pt that this SW will send additional information and confirm if they have a bed or not. Provide with a list of other area facilities in the event that [facility] does not have a bed. Placed call to Lorraine Akers, who confirms that she never sent any information to [facility] as the pt wanted to return home. Faxed clinicals including PT/OT from TCU to [facility]. Left for Joyce inquiring about bed availability and requesting that she contact REZA Judd on assigned acute unit. Called Pablito Clarke to update of plan as well. Plan: SNF pending acceptance and pre-cert. Dixie Murphy, MORTGAGE SERVICING SPECIALIST, OFFICE ADMINISTRATIVE ASSISTANT
[2017-10-21 10:12] VITALS: BP 139/68; PULSE 57; RESP 18; TEMP 36.4; O2SAT 93; BMI 34.7; BMI 35.9
[2017-10-21] MEDS: 0.9% NaCl Peripheral Flush Adult/Peds IV ×2 (10:58→13:11)
[2017-10-21] MEDS: 0.9% Normal Saline 1,000 ML 125 ML IV ×2 (10:58→20:35)
--- NOTE | 2017-10-21 11:05 | CASEMGMT ---
Social Work Note REZA received call from Joyce at [facility] inquiring as to why pt left TCU AMA, pt's current medication list, and PT/OT. REZA informed Joyce that per Isaura SENIOR in TCU notes Dr. Burdick recommending for pt to get I.V. antibiotics but pt declined to continue with stay or have I.V. therapy and chose to discharge home. Per PARRISH Oneal in ED, pt doesn't want to go back to TCU because she was not pleased with the physician over the unit. REZA informed Joyce that PT/OT have been ordered and will fax notes when available. REZA asked Joyce if PT/OT notes from TCU could be used and Joyce states that insurance will require notes from this hospital still and more recent notes from the . REZA faxed updated medication list to Joyce. REZA will fax PT/OT when available. Plan: [facility] pending pre-cert Aspen Clarke MSW, STICK FEEDER
--- NOTE | 2017-10-21 11:39 | CASEMGMT ---
Social Work Note SW received call from Joyce at [facility] stating that they are able to accept pt and she submitted for pre-cert. Plan: [facility] pending pre-cert Aspen Clarke PITCHING COACH, TRAVEL DIRECTOR
[2017-10-21 11:58] LABS: Mucous, Urine 0 SEEN /hpf (<or=2+); Red Blood Cells-Urine 0 SEEN /hpf (0-5)
[2017-10-21 12:00] LABS: Color, Urine Yellow (Yellow); Glucose, Dipstick Normal (Normal); Ketone-Dipstick Negative (Negative); Leukocyte Esterase-Dipstick 25 /ul (Negative); Nitrite-Dipstick Negative (Negative); Occult Blood-Urine Negative /ul (Negative); Protein-Dipstick Negative (Negative); Urine Bilirubin Dipstick Negative (Negative); Urine Clarity Sl. Cloudy (Clear); Urine Urobilinogen Normal (Normal)
[2017-10-21 12:08] LABS: Bacteria 1+ /hpf (None Seen); Squamous Epithelial Cells - UA 0-5 SEEN /hpf (5-10); White Blood Cells 0-5 SEEN /hpf (0-5)
[2017-10-21 12:51] VITALS: BP 139/68; PULSE 57
[2017-10-21] MEDS: Heparin Injection (Vial) 5,000 UNIT/ML VIAL 5000 UNIT SC (13:10)
--- NOTE | 2017-10-21 13:59 | CASEMGMT ---
Social Work Note SW faxed PT/OT notes to Joyce at [facility]. Plan: [facility] pending acceptance Aspen Clarke COMPLEX MANAGER, CONVEYOR TENDER
[2017-10-21 15:57] VITALS: BP 127/95; PULSE 58; RESP 18; TEMP 36.4; O2SAT 100
--- NOTE | 2017-10-21 16:58 | PCA ---
This call received from Joyce at [facility] stating that she had received pre-cert for pt to be transferred to [facility] if needed over weekend. Referred to [facility] report sheet from case management and contacted Khanh COBB. Left detailed message on Khanh ELLISON stating that this workers compensation legal secretary will leave note in [facility] with [facility] phone number for report and fax number for DC paperwork. ( , ). Also wrote that pre-cert was obtained on [facility] report sheet.
[2017-10-21 23:54] VITALS: BP 154/75; PULSE 73; RESP 18; TEMP 36.8; O2SAT 95
[2017-10-22 00:06] VITALS: BP 154/75; PULSE 73
[2017-10-22] MEDS: Pravastatin 40 MG Tablet PO ×2 (00:06→21:24)
[2017-10-22] MEDS: Heparin Injection (Vial) 5,000 UNIT/ML VIAL 5000 UNIT SC ×3 (00:06→21:31)
[2017-10-22] MEDS: Metoprolol Tartrate 50 MG Tablet PO ×3 (00:06→21:24)
[2017-10-22 04:00] VITALS: BP 160/93; PULSE 91; RESP 16; TEMP 36.9; O2SAT 95
[2017-10-22] MEDS: Magnesium Hydroxide 30 ML UDC PO (04:02)
[2017-10-22] MEDS: 0.9% Normal Saline 1,000 ML 125 ML IV (04:45)
[2017-10-22 07:48] LABS: BUN 22 mg/dL (7-18); Creatinine, Serum 0.95 mg/dL (0.55-1.02); Glucose 100 mg/dL (74-106)
[2017-10-22 07:49] LABS: Anion Gap 6 (5-15); BUN/Creat Ratio 23.2 RATIO (10-20); Chloride 107 mmol/L (98-107); EST Glomerular Filtration Rate 60 mL/min (>60); Est Glom Filt Rate - Afr Amer 73 mL/min (>60); Estimated Creatinine Clearance 40.79 ml/min; Potassium 4.1 mmol/L (3.5-5.1); Sodium Level 137 mmol/L (136-145)
--- NOTE | 2017-10-22 09:20 | PCM.PN.HOSP ---
Patient Problems: Active and Suspected Problems Generalized weakness (Acute) Subjective: Patient is still has bilateral lower extremity weakness and pain; no improvement. On PT and OT. For SNF placement. Objective: General: Alert, Oriented x3, Cooperative HEENT: Atraumatic, PERRLA, EOMI, Normocephalic Oral: Dry Mucosa Neck: Supple, No JVD, Negative Carotid Bruits Lungs: Clear to auscultation, Diminished Cardiovascular: Regular rate, Regular Rhythm, Normal S1, Normal S2, No murmurs Abdomen: Bowel Sounds Present, Soft, Non Tender Extremities: Capillary Refill Less than 3 Seconds, Edema Skin: No rashes, No breakdown Musculoskeletal: Arthritic Changes, Tenderness - Mild tenderness present at both hip joints, right more than left. Neurological: Cranial nerves II-XII grossly intact, - - Mild lower extremity weakness, 4/5 at both hip joints, right seems weaker than left. Psych/Mental Status: Normal Affect, Appropriate Vitals/I&O's: Vital Signs Temp Pulse Resp BP Pulse Ox 98.4 F 91 16 160/93 H 95 10/22/17 04:00 10/22/17 04:00 10/22/17 04:00 10/22/17 04:00 10/22/17 04:00 Oxygen Delivery Method Room Air Weight: 209 lb 3.499 oz Body Mass Index (BMI) 35.9 Intake and Output for Last 24 Hours 10/20/17 10/21/17 10/22/17 23:59 23:59 23:59 Intake Total 1072 / 1072 1808 / 1808 Output Total 2950 / 2950 1950 / 1950 Balance -1878 / -1878 -142 / -142 Laboratory Results 10/21/17 11:35: Urine Color Yellow, Urine Clarity Sl. Cloudy, Urine pH 6.0, Ur Specific [place] 1.010, Urine Protein Negative, Urine Glucose (UA) Normal, Urine Ketones Negative, Urine Occult Blood Negative, Urine Nitrite Negative, Urine Bilirubin Negative, Urine Urobilinogen Normal, Ur Leukocyte Esterase 25 H, Urine RBC 0 SEEN, Urine WBC 0-5 SEEN, Ur Squamous Epith Cells 0-5 SEEN, Urine Bacteria 1+, Urine Mucus 0 SEEN 10/22/17 07:22: Sodium 137, Potassium 4.1, Chloride 107, Carbon Dioxide 24.0, Anion Gap 6, BUN 22 H, Creatinine 0.95, Estim Creat Clear Calc 40.79, Est GFR (MDRD) Af Amer 73, Est GFR (MDRD) Non-Af 60, BUN/Creatinine Ratio 23.2 H, Glucose 100, Calcium 9.0 Current Medications Amlodipine Besylate (Norvasc) 10 mg PO DAILY [facility] Last Admin: 10/21/17 12:52 Dose: Not Given Aspirin (Aspirin) 325 mg PO DAILY@0800 [facility] Heparin Sodium (Porcine) (Heparin Na) 5,000 unit SC Q12 [facility] Last Admin: 10/22/17 00:06 Dose: 5,000 units Magnesium Hydroxide (Milk Of Magnesia) 30 ml PO DAILY PRN PRN PRN Reason: Constipation Last Admin: 10/22/17 04:02 Dose: 30 ml Metoprolol Tartrate (Lopressor (Beta Saloni)) 50 mg PO BID [facility] Last Admin: 10/22/17 00:06 Dose: 50 mg Nitroglycerin (Nitrostat) 0.4 mg SUBLINGUAL Q5M PRN PRN Reason: CARDIAC/CHEST PAIN Pantoprazole Sodium (Protonix) 40 mg PO DAILY [facility] Last Admin: 10/21/17 12:52 Dose: Not Given Pravastatin Sodium (Pravachol) 40 mg PO QHS [facility] Last Admin: 10/22/17 00:06 Dose: 40 mg Psyllium Hydrophilic Mucilloid (Metamucil) 1 packet PO DAILY PRN PRN PRN Reason: CONSTIPATION Senna/Docusate Sodium (Senokot-S, Caitlin-Colace) 2 tablet PO BID PRN PRN PRN Reason: CONSTIPATION Sodium Chloride () 5 - 30 ml IV UD PRN PRN Reason: SALINE FLUSH Last Admin: 10/21/17 13:11 Dose: 10 ml Medical Necessity - Tobacco Use Smoking Status: Never smoker Assessment/Plan All Active Problems Hypertensive urgency (Acute) Hyponatremia (Acute) Right hip pain (Acute) Generalized weakness (Acute) The patient is a 82 year old F with multiple comorbidities including coronary artery disease status post CABG and cardiac stent, neurogenic bladder on self-catheterization, hypertension [] Was brought into ER after daughter found her sitting on the toilet seat for prolonged time. She went to tolerate to to self catheterize to empty the bladder and was not able to get up from the toilet seat. She felt very weak. Later on when her daughter attempted to assist her she could not stand up in a controlled fall on the floor. She was sitting on the toilet for prolonged time. This time, she denies confusion, change in mental status or syncope. Recently she was admitted for right hip and leg pain and found to have negative x-ray. At that time urine culture was positive for E. coli and right lower extremity venous ultrasound was negative. He was treated with Rocephin. At that time she had a stress echo for chest pain and was negative for ischemia. Initial lab in the ER shows creatinine 1.55, BUN 33 suggestive of dehydration her baseline creatinine is normal at 0.78 1. Weakness of both lower extremity along with control fall probably from osteoarthritis of both hips: Patient is being admitted on the regular MedSurg floor. She denies heavy fall or history of fracture/replacement of her knee joints. Recently she had x-rays of hips and knee joints and lumbar spine which showed degenerative changes along with extensive degenerative changes of lumbar spine. Patient is being admitted in observation for PT and OT evaluation and needs SNF. 2. Acute kidney injury most probably secondary to dehydration/JOSE inhibitor: On IV fluid normal saline. Hold nephrotoxic medications including JOSE inhibitor. Strict I&O's. Creatinine is back to normal 0.9. IV fluid discontinued. MARII resolved Coronary artery disease status post CABG and stents, grade 1 diastolic chronic heart failure, hypertension: Continue home medication 3. Chronic neurogenic bladder with self-catheterization, she was recently treated with Rocephin in September 2017 for complicated UTI. Will check UA with reflex urine culture. Other Comorbidities include chronic microcytic anemia, peripheral neuropathy, dyslipidemia and chronic pain: Home medication reconciliation done. DVT prophylaxis: Heparin 5000 units subcutaneous twice daily and B/L SCDs This note was generated with Net[employer] dictation software. Every effort was made to ensure accuracy, however computerized macerator operator mistakes may persist. Laboratory Results 10/22/17 07:22: Sodium 137, Potassium 4.1, Chloride 107, Carbon Dioxide 24.0, Anion Gap 6, BUN 22 H, Creatinine 0.95, Estim Creat Clear Calc 40.79, Est GFR (MDRD) Af Amer 73, Est GFR (MDRD) Non-Af 60, BUN/Creatinine Ratio 23.2 H, Glucose 100, Calcium 9.0 Code Visit Inpatient E&M: 47885 Subs Hosp L2
[2017-10-22] MEDS: Psyllium 1 PACKET PO (09:28)
[2017-10-22] MEDS: Pantoprazole Sodium 40 MG Tablet PO (09:29)
[2017-10-22] MEDS: amLODIPine 10 MG Tablet PO (09:29)
[2017-10-22] MEDS: Aspirin 325 MG Tablet PO (09:29)
[2017-10-22] MEDS: Senna/Docusate Sodium 1 Tablet 2 TABLET PO (09:34)
[2017-10-22 10:00] VITALS: BP 136/55; PULSE 70; RESP 20; TEMP 36.9; O2SAT 97
[2017-10-22 10:02] VITALS: PULSE 70
--- NOTE | 2017-10-22 10:49 | NURSING ---
pT HAD BEEN UP TO BSC X2 IN A 30 MIN TIME SPAN. DESPITE THE STOOL SOFTNORS, THE WARM PRUNE JUICE, PT WAS VERY UNCOMFORTABLE, YELLING FOR HELP. THIS NURSE DECIDED TO PERFORM DIG STIM AND ABLE TO OBTAIN 4 QAURTER SIZED PIECES OF STOOL THAT WERE HARD A ROCK. THEN PT WAS ABLE TO EXPEL THE REST OF A XLG SOFT BM.
[2017-10-22 15:55] VITALS: BP 128/55; PULSE 64; RESP 18; TEMP 36.7; O2SAT 99
[2017-10-22] MEDS: Phenazopyridine 95 MG Tablet PO (19:39)
--- NOTE | 2017-10-22 19:50 | NURSING ---
Pt with neurogenic bladder and straight caths at home, continues to call nurse wanting to be straight cathed bc she felt urge to void. Yelling and moaning in pain. Dr. Saba notified, order for cotto received.
[2017-10-22 21:24] VITALS: BP 138/95; PULSE 95; RESP 20; TEMP 36.9; O2SAT 95
[2017-10-23] MEDS: Acetaminophen 325 MG Tablet 650 MG PO ×4 (00:32→21:10)
[2017-10-23 04:30] VITALS: BP 142/93; PULSE 92; RESP 20; TEMP 37.1; O2SAT 96
[2017-10-23] MEDS: Phenazopyridine 95 MG Tablet PO ×3 (05:23→21:11)
[2017-10-23 07:51] VITALS: PULSE 90
[2017-10-23] MEDS: Aspirin 325 MG Tablet PO (08:03)
[2017-10-23] MEDS: ALPRAZolam 0.5 MG Tablet PO ×2 (08:08→16:48)
[2017-10-23] MEDS: QUEtiapine 25 MG Tablet 50 MG PO (08:25)
--- NOTE | 2017-10-23 08:43 | PCM.PN.HOSP ---
Patient Problems: Active and Suspected Problems Generalized weakness (Acute) Subjective: Patient is anxious, restless and could not sleep last night. Patient seemed confused and disoriented and not able to explain her symptoms. As per the nurse, she complained last night of groin pain but currently she is does not have groin pain. She had intermittent urinary retention and irritation sensation urethral site. Pyridium added. Urine culture shows mixed gram-positive organism suggestive of contamination. UA is not indicative of UTI. Antibiotic not indicated. Vitals/I&O's: Vital Signs Temp Pulse Resp BP Pulse Ox 98.8 F 90 20 H 142/93 H 96 10/23/17 04:30 10/23/17 07:51 10/23/17 04:30 10/23/17 04:30 10/23/17 04:30 Oxygen Delivery Method Room Air Weight: 209 lb 3.499 oz Body Mass Index (BMI) 35.9 Intake and Output for Last 24 Hours 10/21/17 10/22/17 10/23/17 23:59 23:59 23:59 Intake Total 1072 / 1072 2602 / 2602 500 / 500 Output Total 2950 / 2950 2650 / 2650 1300 / 1300 Balance -1878 / -1878 -48 / -48 -800 / -800 General: Confused, Disoriented, Lethargic HEENT: Atraumatic, PERRLA, EOMI, Normocephalic Neck: Supple, No JVD, Negative Carotid Bruits Lungs: Clear to auscultation, Diminished Cardiovascular: Regular rate, Regular Rhythm, Normal S1, Normal S2, No murmurs Abdomen: Bowel Sounds Present, Soft, Non Tender Extremities: No edema, Capillary Refill Less than 3 Seconds Skin: No rashes, No breakdown Musculoskeletal: No Tenderness to Palpation of Joints or Extremities Neurological: Cranial nerves II-XII grossly intact Psych/Mental Status: Normal Affect, Appropriate Microbiology Past 72 Hours 10/21/17 11:35 Urine Catheter - Catheter Urine Culture - Preliminary Mixed Gram Positive Organisms Current Medications Acetaminophen (Tylenol) 650 mg PO Q4H PRN PRN PRN Reason: PAIN Last Admin: 10/23/17 05:23 Dose: 650 mg Alprazolam (Xanax) 0.5 mg PO TID PRN PRN PRN Reason: ANXIETY Last Admin: 10/23/17 08:08 Dose: 0.5 mg Amlodipine Besylate (Norvasc) 10 mg PO DAILY [facility] Last Admin: 10/22/17 09:29 Dose: 10 mg Aspirin (Aspirin) 325 mg PO DAILY@0800 [facility] Last Admin: 10/23/17 08:03 Dose: 325 mg Heparin Sodium (Porcine) (Heparin Na) 5,000 unit SC Q12 [facility] Last Admin: 10/22/17 21:31 Dose: 5,000 units Magnesium Hydroxide (Milk Of Magnesia) 30 ml PO DAILY PRN PRN PRN Reason: Constipation Last Admin: 10/22/17 04:02 Dose: 30 ml Metoprolol Tartrate (Lopressor (Beta Saloni)) 50 mg PO BID [facility] Last Admin: 10/22/17 21:24 Dose: 50 mg Nitroglycerin (Nitrostat) 0.4 mg SUBLINGUAL Q5M PRN PRN Reason: CARDIAC/CHEST PAIN Pantoprazole Sodium (Protonix) 40 mg PO DAILY [facility] Last Admin: 10/22/17 09:29 Dose: 40 mg Phenazopyridine HCl (Azo Standard) 95 mg PO TID [facility] Stop: 10/24/17 14:01 Last Admin: 10/23/17 05:23 Dose: 95 mg Pravastatin Sodium (Pravachol) 40 mg PO QHS [facility] Last Admin: 10/22/17 21:24 Dose: 40 mg Psyllium Hydrophilic Mucilloid (Metamucil) 1 packet PO DAILY PRN PRN PRN Reason: CONSTIPATION Last Admin: 10/22/17 09:28 Dose: 1 packet Senna/Docusate Sodium (Senokot-S, Caitlin-Colace) 2 tablet PO BID PRN PRN PRN Reason: CONSTIPATION Last Admin: 10/22/17 09:34 Dose: 2 tablet Sodium Chloride () 5 - 30 ml IV UD PRN PRN Reason: SALINE FLUSH Last Admin: 10/21/17 13:11 Dose: 10 ml Medical Necessity - Tobacco Use Smoking Status: Never smoker Assessment/Plan All Active Problems Hypertensive urgency (Acute) Hyponatremia (Acute) Right hip pain (Acute) Generalized weakness (Acute) The patient is a 82 year old F with multiple comorbidities including coronary artery disease status post CABG and cardiac stent, neurogenic bladder on self-catheterization, hypertension [] Was brought into ER after daughter found her sitting on the toilet seat for prolonged time. She went to tolerate to to self catheterize to empty the bladder and was not able to get up from the toilet seat. She felt very weak. Later on when her daughter attempted to assist her she could not stand up in a controlled fall on the floor. She was sitting on the toilet for prolonged time. This time, she denies confusion, change in mental status or syncope. Recently she was admitted for right hip and leg pain and found to have negative x-ray. At that time urine culture was positive for E. coli and right lower extremity venous ultrasound was negative. He was treated with Rocephin. At that time she had a stress echo for chest pain and was negative for ischemia. Initial lab in the ER shows creatinine 1.55, BUN 33 suggestive of dehydration her baseline creatinine is normal at 0.78 1. Weakness of both lower extremity along with control fall probably from osteoarthritis of both hips: Patient is being admitted on the regular MedSurg floor. She denies heavy fall or history of fracture/replacement of her knee joints. Recently she had x-rays of hips and knee joints and lumbar spine which showed degenerative changes along with extensive degenerative changes of lumbar spine. Patient is being admitted in observation for PT and OT evaluation and needs SNF. 2. Anxiety and panic attack, I think most related with dementia with neurotic symptoms and insomnia: Xanax as needed. Trazodone at night. 3. Acute kidney injury most probably secondary to dehydration/JOSE inhibitor with neurogenic bladder: On IV fluid normal saline. Hold nephrotoxic medications including JOSE inhibitor. Strict I&O's. Creatinine is back to normal 0.9. IV fluid discontinued. MARII resolved. Walker catheter was placed yesterday as she was having pain at the urethral site and irritation. Pyridium added. 4 Coronary artery disease status post CABG and stents, grade 1 diastolic chronic heart failure, hypertension: Continue home medication 5 Chronic neurogenic bladder with self-catheterization, she was recently treated with Rocephin in September 2017 for complicated UTI. Urine culture shows mixed gram-positive organism suggestive of contamination. UA is not indicative of UTI. Antibiotic not indicated. Other Comorbidities include chronic microcytic anemia, peripheral neuropathy, dyslipidemia and chronic pain: Home medication reconciliation done. DVT prophylaxis: Heparin 5000 units subcutaneous twice daily and B/L SCDs This note was generated with [employer] dictation software. Every effort was made to ensure accuracy, however computerized vamp strap ironer mistakes may persist. Laboratory Results 10/22/17 07:22: Sodium 137, Potassium 4.1, Chloride 107, Carbon Dioxide 24.0, Anion Gap 6, BUN 22 H, Creatinine 0.95, Estim Creat Clear Calc 40.79, Est GFR (MDRD) Af Amer 73, Est GFR (MDRD) Non-Af 60, BUN/Creatinine Ratio 23.2 H, Glucose 100, Calcium 9.0 Microbiology Past 72 Hours 10/21/17 11:35 Urine Catheter - Catheter Urine Culture - Preliminary Mixed Gram Positive Organisms Code Visit Inpatient E&M: 75752 Subs Hosp L3
--- NOTE | 2017-10-23 08:49 | PN_ITS ---
Patient Problems: Active and Suspected Problems Generalized weakness (Acute) Subjective: Patient is anxious, restless and could not sleep last night. Patient seemed confused and disoriented and not able to explain her symptoms. As per the nurse, she complained last night of groin pain but currently she is does not have groin pain. She had intermittent urinary retention and irritation sensation urethral site. Pyridium added. Urine culture shows mixed gram-positive organism suggestive of contamination. UA is not indicative of UTI. Antibiotic not indicated. Vitals/I&O's: Vital Signs Temp Pulse Resp BP Pulse Ox 98.8 F 90 20 H 142/93 H 96 10/23/17 04:30 10/23/17 07:51 10/23/17 04:30 10/23/17 04:30 10/23/17 04:30 Oxygen Delivery Method Room Air Weight: 209 lb 3.499 oz Body Mass Index (BMI) 35.9 Intake and Output for Last 24 Hours 10/21/17 10/22/17 10/23/17 23:59 23:59 23:59 Intake Total 1072 / 1072 2602 / 2602 500 / 500 Output Total 2950 / 2950 2650 / 2650 1300 / 1300 Balance -1878 / -1878 -48 / -48 -800 / -800 General: Confused, Disoriented, Lethargic HEENT: Atraumatic, PERRLA, EOMI, Normocephalic Neck: Supple, No JVD, Negative Carotid Bruits Lungs: Clear to auscultation, Diminished Cardiovascular: Regular rate, Regular Rhythm, Normal S1, Normal S2, No murmurs Abdomen: Bowel Sounds Present, Soft, Non Tender Extremities: No edema, Capillary Refill Less than 3 Seconds Skin: No rashes, No breakdown Musculoskeletal: No Tenderness to Palpation of Joints or Extremities Neurological: Cranial nerves II-XII grossly intact Psych/Mental Status: Normal Affect, Appropriate Microbiology Past 72 Hours 10/21/17 11:35 Urine Catheter - Catheter Urine Culture - Preliminary Mixed Gram Positive Organisms Current Medications Acetaminophen (Tylenol) 650 mg PO Q4H PRN PRN PRN Reason: PAIN Last Admin: 10/23/17 05:23 Dose: 650 mg Alprazolam (Xanax) 0.5 mg PO TID PRN PRN PRN Reason: ANXIETY Last Admin: 10/23/17 08:08 Dose: 0.5 mg Amlodipine Besylate (Norvasc) 10 mg PO DAILY [facility] Last Admin: 10/22/17 09:29 Dose: 10 mg Aspirin (Aspirin) 325 mg PO DAILY@0800 [facility] Last Admin: 10/23/17 08:03 Dose: 325 mg Heparin Sodium (Porcine) (Heparin Na) 5,000 unit SC Q12 [facility] Last Admin: 10/22/17 21:31 Dose: 5,000 units Magnesium Hydroxide (Milk Of Magnesia) 30 ml PO DAILY PRN PRN PRN Reason: Constipation Last Admin: 10/22/17 04:02 Dose: 30 ml Metoprolol Tartrate (Lopressor (Beta Saloni)) 50 mg PO BID [facility] Last Admin: 10/22/17 21:24 Dose: 50 mg Nitroglycerin (Nitrostat) 0.4 mg SUBLINGUAL Q5M PRN PRN Reason: CARDIAC/CHEST PAIN Pantoprazole Sodium (Protonix) 40 mg PO DAILY [facility] Last Admin: 10/22/17 09:29 Dose: 40 mg Phenazopyridine HCl (Azo Standard) 95 mg PO TID [facility] Stop: 10/24/17 14:01 Last Admin: 10/23/17 05:23 Dose: 95 mg Pravastatin Sodium (Pravachol) 40 mg PO QHS [facility] Last Admin: 10/22/17 21:24 Dose: 40 mg Psyllium Hydrophilic Mucilloid (Metamucil) 1 packet PO DAILY PRN PRN PRN Reason: CONSTIPATION Last Admin: 10/22/17 09:28 Dose: 1 packet Senna/Docusate Sodium (Senokot-S, Caitlin-Colace) 2 tablet PO BID PRN PRN PRN Reason: CONSTIPATION Last Admin: 10/22/17 09:34 Dose: 2 tablet Sodium Chloride () 5 - 30 ml IV UD PRN PRN Reason: SALINE FLUSH Last Admin: 10/21/17 13:11 Dose: 10 ml Medical Necessity - Tobacco Use Smoking Status: Never smoker Assessment/Plan All Active Problems Hypertensive urgency (Acute) Hyponatremia (Acute) Right hip pain (Acute) Generalized weakness (Acute) The patient is a 82 year old F with multiple comorbidities including coronary artery disease status post CABG and cardiac stent, neurogenic bladder on self- catheterization, hypertension [] Was brought into ER after daughter found her sitting on the toilet seat for prolonged time. She went to tolerate to to self catheterize to empty the bladder and was not able to get up from the toilet seat. She felt very weak. Later on when her daughter attempted to assist her she could not stand up in a controlled fall on the floor. She was sitting on the toilet for prolonged time. This time, she denies confusion, change in mental status or syncope. Recently she was admitted for right hip and leg pain and found to have negative x-ray. At that time urine culture was positive for E. coli and right lower extremity venous ultrasound was negative. He was treated with Rocephin. At that time she had a stress echo for chest pain and was negative for ischemia. Initial lab in the ER shows creatinine 1.55, BUN 33 suggestive of dehydration her baseline creatinine is normal at 0.78 1. Weakness of both lower extremity along with control fall probably from osteoarthritis of both hips: Patient is being admitted on the regular MedSurg floor. She denies heavy fall or history of fracture/replacement of her knee joints. Recently she had x-rays of hips and knee joints and lumbar spine which showed degenerative changes along with extensive degenerative changes of lumbar spine. Patient is being admitted in observation for PT and OT evaluation and needs SNF. 2. Anxiety and panic attack, I think most related with dementia with neurotic symptoms and insomnia: Xanax as needed. Trazodone at night. 3. Acute kidney injury most probably secondary to dehydration/JOSE inhibitor with neurogenic bladder: On IV fluid normal saline. Hold nephrotoxic medications including JOSE inhibitor. Strict I&O's. Creatinine is back to normal 0.9. IV fluid discontinued. MARII resolved. Walker catheter was placed yesterday as she was having pain at the urethral site and irritation. Pyridium added. 4 Coronary artery disease status post CABG and stents, grade 1 diastolic chronic heart failure, hypertension: Continue home medication 5 Chronic neurogenic bladder with self-catheterization, she was recently treated with Rocephin in September 2017 for complicated UTI. Urine culture shows mixed gram-positive organism suggestive of contamination. UA is not indicative of UTI. Antibiotic not indicated. Other Comorbidities include chronic microcytic anemia, peripheral neuropathy, dyslipidemia and chronic pain: Home medication reconciliation done. DVT prophylaxis: Heparin 5000 units subcutaneous twice daily and B/L SCDs This note was generated with [employer] dictation software. Every effort was made to ensure accuracy, however computerized managing broker mistakes may persist. Laboratory Results 10/22/17 07:22: Sodium 137, Potassium 4.1, Chloride 107, Carbon Dioxide 24.0, Anion Gap 6, BUN 22 H, Creatinine 0.95, Estim Creat Clear Calc 40.79, Est GFR ( MDRD) Af Amer 73, Est GFR (MDRD) Non-Af 60, BUN/Creatinine Ratio 23.2 H, Glucose 100, Calcium 9.0 Microbiology Past 72 Hours 10/21/17 11:35 Urine Catheter - Catheter Urine Culture - Preliminary Mixed Gram Positive Organisms Code Visit Inpatient E&M: 55231 Subs Hosp L3
[2017-10-23 10:43] VITALS: BP 159/75; PULSE 82; RESP 20; TEMP 37.1; O2SAT 97
[2017-10-23 10:52] VITALS: BP 159/75; PULSE 82
[2017-10-23] MEDS: Pantoprazole Sodium 40 MG Tablet PO (10:52)
[2017-10-23] MEDS: amLODIPine 10 MG Tablet PO (10:52)
[2017-10-23] MEDS: Heparin Injection (Vial) 5,000 UNIT/ML VIAL 5000 UNIT SC ×2 (10:52→21:13)
[2017-10-23] MEDS: Metoprolol Tartrate 50 MG Tablet PO ×2 (10:52→21:11)
[2017-10-23 15:08] VITALS: BP 123/55; PULSE 81; RESP 18; TEMP 37.2; O2SAT 100
[2017-10-23] MEDS: 0.9% NaCl Peripheral Flush Adult/Peds IV (15:14)
[2017-10-23] MEDS: traZODone 50 MG Tablet PO (21:10)
[2017-10-23 21:11] VITALS: BP 147/63; PULSE 74; RESP 18; TEMP 36.9; O2SAT 97
[2017-10-23] MEDS: Pravastatin 40 MG Tablet PO (21:11)
[2017-10-24] MEDS: ALPRAZolam 0.5 MG Tablet PO (01:24)
[2017-10-24 03:00] VITALS: BP 139/56; PULSE 76; RESP 20; TEMP 36.5; O2SAT 96
[2017-10-24] MEDS: Phenazopyridine 95 MG Tablet PO ×2 (05:58→15:00)
[2017-10-24 06:27] LABS: BUN 9 mg/dL (7-18); BUN/Creat Ratio 12.5 RATIO (10-20); Chloride 105 mmol/L (98-107); Creatinine, Serum 0.72 mg/dL (0.55-1.02); EST Glomerular Filtration Rate 83 mL/min (>60); Est Glom Filt Rate - Afr Amer 100 mL/min (>60); Estimated Creatinine Clearance 38.75 ml/min; Glucose 92 mg/dL (74-106); Potassium 3.9 mmol/L (3.5-5.1); Sodium Level 139 mmol/L (136-145)
[2017-10-24 06:28] LABS: Anion Gap 8 (5-15)
[2017-10-24] MEDS: Acetaminophen 325 MG Tablet 650 MG PO (07:12)
[2017-10-24 09:00] VITALS: BP 153/70; PULSE 66; RESP 18; TEMP 37.4; O2SAT 94
--- NOTE | 2017-10-24 09:19 | CASEMGMT ---
Social Work Note SW received message from Joyce at [facility] stating that she placed a call to pt's insurance [employer] to determine if pre-cert will need to be submitted again. Plan: REZA waiting for call back from Joyce to determine if pre-cert will be needed again. Aspen Clarke DAY CARE PROVIDER, RUBBER GOODS INSPECTOR
[2017-10-24] MEDS: Aspirin 325 MG Tablet PO (09:29)
[2017-10-24] MEDS: oxyCODONE 5 MG Tablet PO (09:30)
[2017-10-24] MEDS: Heparin Injection (Vial) 5,000 UNIT/ML VIAL 5000 UNIT SC (09:30)
[2017-10-24 09:31] VITALS: BP 153/70; PULSE 66
[2017-10-24] MEDS: Pantoprazole Sodium 40 MG Tablet PO (09:31)
[2017-10-24] MEDS: Metoprolol Tartrate 50 MG Tablet PO (09:31)
[2017-10-24] MEDS: amLODIPine 10 MG Tablet PO (09:31)
[2017-10-24] MEDS: hydroCHLOROthiazide 25 MG Tablet PO (09:38)
[2017-10-24] MEDS: Lisinopril 10 MG Tablet PO (09:38)
--- NOTE | 2017-10-24 09:40 | NURSING ---
ESTEVEZ CATHETER DC'D ORDERED
--- NOTE | 2017-10-24 10:04 | PCM.TXEXTCAR ---
- Diet 10/21/17 08:54 Diet: 2 Gram Sodium - Routine Orders/Code Status Enema Type: Fleetz Enema Frequency: Daily PRN Suppository Type: Dulcolax 10mg Suppository Frequency: Daily PRN Keep PO Greater than or Equal to (%): 92 Routine Lab Work: - - Repeat CBC, BMP within 1 week. Code Status: DNRCC-A - DNR-CCA, no intubation. - Suggestions for Active Care Change Position every (hours): 2 Hours to sit in a chair: 6 Times a day to sit in chair: 3 - Therapies Weight Bearing: Full weight bearing Extremity Affected:: Bilateral Lower Physical Therapy: Eval and Treat Occupational Therapy: Eval and Treat - Problem/Diagnosis (1) Acute kidney injury Status: Acute Current Visit: Yes (2) History of urinary self-catheterization Status: Chronic Comment: Neurogenic bladder Current Visit: No (3) Debility Status: Acute Current Visit: Yes (4) Encephalopathy acute Status: Acute Current Visit: Yes (5) HTN (hypertension) Status: Chronic Current Visit: No (6) Anxiety Status: Chronic Current Visit: No (7) Neuropathy Status: Chronic Current Visit: No (8) Osteoarthritis Status: Chronic Current Visit: No (9) History of coronary artery disease Status: Chronic Current Visit: No (10) Grade I diastolic dysfunction Status: Chronic Current Visit: No (11) Hyperlipidemia Status: Chronic Current Visit: No (12) Chronic pain Status: Chronic Current Visit: No - Allergies/Procedures Done in Hospital Allergies/Adverse Reactions: Allergies cortisone [Cortisone] Allergy (Verified 10/21/17 07:55) Swelling Penicillins Allergy (Verified 10/21/17 07:55) Swelling sulfamethoxazole [From Bactrim] Allergy (Verified 10/21/17 07:55) Swelling trimethoprim [From Bactrim] Allergy (Verified 10/21/17 07:55) Swelling Procedures: EKG - Type of Care/Length of Stay Estimated LOS: Convalescent Care Less Than 30 days Type of Care Needed: Skilled Rehab Potential: Fair Prognosis: Fair - Additional Orders/Day of Discharge Additional Orders: (1) Fall precautions. (2) q 2 hour position changes. (3) Straight catheterization for neurogenic bladder q 6-8 hours during the day and prior to bedtime and PRN for urge. Avoid cotto placement if possible, patient may request placement. (4) HOB > 30. (5) IS 10x/hr 7 a - 7 p. (6) Patient with anxiety and depression, more anxiety component, advise consideration SSRI versus SNRI start w/ therapy at SNF. H&P will serve as current which was dated: 10/21/17 Day of Discharge: 10/24/17 - Dietary and Speech Recommendations Dietitian Recommendations/Changes: Rec cardiac, low cholesterol diet. - Follow Up Care Primary Care Physician: Regi Aguilar MD [Primary Care Provider] - Please follow up with your Primary Care Physician in: Follow-up within 1-2 days SNF discharge.
--- NOTE | 2017-10-24 10:10 | PCM.DC.SUM ---
Discharge Date and Diagnosis - Problem List Patient Problems: Active and Suspected Problems Generalized weakness (Acute) Acute kidney injury (Acute) Encephalopathy acute (Acute) Debility (Acute) Date of Admission: 10/21/17 Date of Discharge: 10/24/17 - Primary Discharge Diagnosis Active and Suspected Problems (1) Acute kidney injury (2) Encephalopathy acute secondary to #1 (3) Debility, Generalized weakness w/ fall (4) Hyponatremia, hypovolemic secondary to dehydration, medications (diuretic) - Secondary Discharge Diagnosis Chronic Problems HTN (hypertension) (Chronic) Anxiety (Chronic) Neuropathy (Chronic) Microcytic anemia (Chronic) History of urinary self-catheterization (Chronic) Neurogenic bladder Osteoarthritis (Chronic) History of coronary artery disease (Chronic) Grade I diastolic dysfunction (Chronic) GERD (gastroesophageal reflux disease) (Chronic) Hyperlipidemia (Chronic) Chronic pain (Chronic) Hospital Course and Treatment Operations: None Procedures: EKG Summary of Care Provided: The patient is a 82 y/o F w/ PMHx: Obesity, Chronic Anemia/Fe Deficiency, HTN, HLD, CAD, Diastolic Dysfunction, GERD, Neurogenic Bladder w/ Chronic Self-catheterization regimen, Anxiety and Depression, Chronic Pain Syndrome who presents to the [facility] ED on 10/21/17 with complaints of increased weakness and debility with difficulty caring for self at the home with fall while attempting to self catheterize on the toilet onto her right hip. In the emergency room workup unremarkable with no trauma Aside evidence of acute kidney injury with BUN/creatinine 33/1.55. Patient was admitted to medical surgical floor, maintained on IV fluids, nephrotoxic medications including lisinopril and hydrochlorothiazide were temporarily held, urinalysis was obtained and unremarkable with no evidence of acute infection, continued straight catheterization secondary to neurogenic bladder with Walker placed and discontinued during admission. Patient renal function improved and returned to normal with resumption of home medications including lisinopril and hydrochlorothiazide. Physical, occupational therapy is consulted in addition to case management with recommendation for long term facility placement which was arranged. ADDITIONAL: CODE status: Discussed CODE status at length including difference between FULL code, DNR-CCA and DNR-CC status. Following discussions about the differences in these status, requested DNR-CCA, no intubation status upon transition SNF and currently. Advanced Care Planning Face to Face Time: 20 minutes. DAY OF DISCHARGE PROGRESS NOTE: Subjective: Patient without acute event overnight per self and nursing report. Patient denies fever, chills, nausea, emesis, abdominal pain, chest pain or dyspnea. Patient did note lower back discomfort which is chronic with encouraged out of bed to chair with assist with some improvement. Patient agreeable to discharge to long term facility given debility and inability to safely care for self at home. Patient will be discharged with follow-up with primary care physician within 1-2 days of long term facility discharge otherwise continued evaluation per long term facility physician. Objective: T 97.7, heart rate 76, BP 139/56, respiratory rate 20, 96% on room air. Physical Examination: General: awake, alert, oriented x 3 and cooperative, seated upright in the bedside chair, NAD. Skin: normal color, turgor, no icterus, cyanosis. HEENT: AT/NC, EOMI, PERRLA, MMM. Lungs: Diminished breath sounds bases, moderate effort, no rales, ronchi or wheezing; Heart: Regular rate and rhythm; no gallop, rub audible. Abdomen: soft, obese, NTTP, ND, normal BS. Extremities: no cyanosis, clubbing, BL ankle edema. Neurological: patient awake, alert, oriented x 3; cognitive function appears intact upon questioning,; pupils equally reactive to light and accomodation; cranial nerves II-XII grossly normal, moving all 4 extremities, strength moderately globally decreased secondary to habitus and acute presentation. Psychiatric: affect appears normal, no acute evidence of depressive or anxiety feelings. Assessment and Plan: Please see hospital summary above. Home Medications: Medications to take at Discharge Calcium Carbonate/Vitamin D3 [Calcium 600-Vit D3 400 Tablet] 1 each PO DAILY 06/25/13 Glucosamine Sulfate Dipot Chlr [Glucosamine Relief] 500 mg PO DAILY 06/25/13 Hydrochlorothiazide 25 mg PO DAILY 06/25/13 Pantoprazole Sodium [Protonix] 40 mg PO DAILY 06/27/13 Amlodipine [Norvasc] 10 mg PO DAILY 10/07/17 Aspirin 325 mg PO DAILY@0800 10/07/17 Gabapentin [Neurontin] 300 mg PO BIDCM 10/07/17 Gabapentin [Neurontin] 400 mg PO QHS 10/07/17 Lisinopril [Zestril] 10 mg PO DAILY 10/07/17 Metoprolol Tartrate [Lopressor (beta kirby)] 50 mg PO BID 10/07/17 Nitroglycerin [Nitrostat] 0.4 mg SUBLINGUAL Q5M PRN tablet 10/07/17 Pravastatin [Pravachol] 40 mg PO QHS 10/07/17 Acetaminophen [Tylenol Tablet] 650 mg PO Q4H PRN PRN tablet 10/24/17 Psyllium [Metamucil] 1 packet PO DAILY PRN PRN packet 10/24/17 Senna/Docusate Sodium [Senokot-S] 2 tablet PO BID PRN PRN tablet 10/24/17 Primary Care Physician: Regi Aguilar MD [Primary Care Provider] - Please follow up with your Primary Care Physician in: Follow-up within 1-2 days SNF discharge. Disposition: Detention facility Minutes spent on discharge:: 35 Patient Condition:: Fair Medical Necessity - Tobacco Use Smoking Status: Never smoker Meaningful Use Info Meaningful Use Diagnoses (Choose all that apply): None applicable Code Visit Inpatient E&M: 80931 Disch Hosp Procedures: 72139 Advncd Care Plan 30 Min
--- NOTE | 2017-10-24 10:18 | DS.PCM_ITS ---
Discharge Date and Diagnosis - Problem List Patient Problems: Active and Suspected Problems Generalized weakness (Acute) Acute kidney injury (Acute) Encephalopathy acute (Acute) Debility (Acute) Date of Admission: 10/21/17 Date of Discharge: 10/24/17 - Primary Discharge Diagnosis Active and Suspected Problems (1) Acute kidney injury (2) Encephalopathy acute secondary to #1 (3) Debility, Generalized weakness w/ fall (4) Hyponatremia, hypovolemic secondary to dehydration, medications (diuretic) - Secondary Discharge Diagnosis Chronic Problems HTN (hypertension) (Chronic) Anxiety (Chronic) Neuropathy (Chronic) Microcytic anemia (Chronic) History of urinary self-catheterization (Chronic) Neurogenic bladder Osteoarthritis (Chronic) History of coronary artery disease (Chronic) Grade I diastolic dysfunction (Chronic) GERD (gastroesophageal reflux disease) (Chronic) Hyperlipidemia (Chronic) Chronic pain (Chronic) Hospital Course and Treatment Operations: None Procedures: EKG Summary of Care Provided: The patient is a 82 y/o F w/ PMHx: Obesity, Chronic Anemia/Fe Deficiency, HTN, HLD, CAD, Diastolic Dysfunction, GERD, Neurogenic Bladder w/ Chronic Self- catheterization regimen, Anxiety and Depression, Chronic Pain Syndrome who presents to the [facility] ED on 10/21/17 with complaints of increased weakness and debility with difficulty caring for self at the home with fall while attempting to self catheterize on the toilet onto her right hip. In the emergency room workup unremarkable with no trauma Aside evidence of acute kidney injury with BUN/creatinine 33/1.55. Patient was admitted to medical surgical floor, maintained on IV fluids, nephrotoxic medications including lisinopril and hydrochlorothiazide were temporarily held, urinalysis was obtained and unremarkable with no evidence of acute infection, continued straight catheterization secondary to neurogenic bladder with Walker placed and discontinued during admission. Patient renal function improved and returned to normal with resumption of home medications including lisinopril and hydrochlorothiazide. Physical, occupational therapy is consulted in addition to case management with recommendation for [facility] facility placement which was arranged. ADDITIONAL: CODE status: Discussed CODE status at length including difference between FULL code, DNR-CCA and DNR-CC status. Following discussions about the differences in these status, requested DNR-CCA, no intubation status upon transition SNF and currently. Advanced Care Planning Face to Face Time: 20 minutes. DAY OF DISCHARGE PROGRESS NOTE: Subjective: Patient without acute event overnight per self and nursing report. Patient denies fever, chills, nausea, emesis, abdominal pain, chest pain or dyspnea. Patient did note lower back discomfort which is chronic with encouraged out of bed to chair with assist with some improvement. Patient agreeable to discharge to [facility] facility given debility and inability to safely care for self at home. Patient will be discharged with follow-up with primary care physician within 1-2 days of [facility] facility discharge otherwise continued evaluation per [facility] facility physician. Objective: T 97.7, heart rate 76, BP 139/56, respiratory rate 20, 96% on room air. Physical Examination: General: awake, alert, oriented x 3 and cooperative, seated upright in the bedside chair, NAD. Skin: normal color, turgor, no icterus, cyanosis. HEENT: AT/NC, EOMI, PERRLA, MMM. Lungs: Diminished breath sounds bases, moderate effort, no rales, ronchi or wheezing; Heart: Regular rate and rhythm; no gallop, rub audible. Abdomen: soft, obese, NTTP, ND, normal BS. Extremities: no cyanosis, clubbing, BL ankle edema. Neurological: patient awake, alert, oriented x 3; cognitive function appears intact upon questioning,; pupils equally reactive to light and accomodation; cranial nerves II-XII grossly normal, moving all 4 extremities, strength moderately globally decreased secondary to habitus and acute presentation. Psychiatric: affect appears normal, no acute evidence of depressive or anxiety feelings. Assessment and Plan: Please see hospital summary above. Home Medications: Medications to take at Discharge Calcium Carbonate/Vitamin D3 [Calcium 600-Vit D3 400 Tablet] 1 each PO DAILY Glucosamine Sulfate Dipot Chlr [Glucosamine Relief] 500 mg PO DAILY 06/25/13 Hydrochlorothiazide 25 mg PO DAILY 06/25/13 Pantoprazole Sodium [Protonix] 40 mg PO DAILY 06/27/13 Amlodipine [Norvasc] 10 mg PO DAILY 10/07/17 Aspirin 325 mg PO DAILY@0800 10/07/17 Gabapentin [Neurontin] 300 mg PO BIDCM 10/07/17 Gabapentin [Neurontin] 400 mg PO QHS 10/07/17 Lisinopril [Zestril] 10 mg PO DAILY 10/07/17 Metoprolol Tartrate [Lopressor (beta kirby)] 50 mg PO BID 10/07/17 Nitroglycerin [Nitrostat] 0.4 mg SUBLINGUAL Q5M PRN tablet 10/07/17 Pravastatin [Pravachol] 40 mg PO QHS 10/07/17 Acetaminophen [Tylenol Tablet] 650 mg PO Q4H PRN PRN tablet 10/24/17 Psyllium [Metamucil] 1 packet PO DAILY PRN PRN packet 10/24/17 Senna/Docusate Sodium [Senokot-S] 2 tablet PO BID PRN PRN tablet 10/24/17 Primary Care Physician: Regi Aguilar MD [Primary Care Provider] - Please follow up with your Primary Care Physician in: Follow-up within 1-2 days SNF discharge. Disposition: Jail facility Minutes spent on discharge:: 35 Patient Condition:: Fair Medical Necessity - Tobacco Use Smoking Status: Never smoker Meaningful Use Info Meaningful Use Diagnoses (Choose all that apply): None applicable Code Visit Inpatient E&M: 65017 Disch Hosp Procedures: 95386 Advncd Care Plan 30 Min
--- NOTE | 2017-10-24 11:49 | CASEMGMT ---
Social Work Note REZA received call from Joyce at [facility] stating that [employer] states that pt is able to discharge to [facility] today under pre-cert that was obtained on Tuesday. REZA informed Joyce that the doctor has put discharge orders in and pt will be discharged today. REZA faxed completed discharge paperwork to Joyce at [facility] including transfer to extended care facility, signed medication list and any scripts. Originals in SNF folder and copy on pt's chart. REZA completed PAS/RR. Original in SNF folder and copy on pt's chart. SW in to update pt that her insurance has approved for placement and the doctor is discharging her today. Pt states understanding. Pt states that she thinks her sister Lois can transport her and gave this worker permission to call her sister Lois to confirm. REZA placed a call to pt's sister Lois. Lois states that she will call her brother to determine discharge plans and give this worker a call back. REZA received call back from Lois pt's sister and Lois states that she would like this worker to set up transportation. SW in to update pt that her sister wants this worker to set up transportation. Pt states understanding. Pt states that she would like to be transported via wheelchair van. SW informed pt that there may be a fee associated with wheelchair can. Pt states understanding. SW set up transportation through [facility] via wheelchair van for 4:00pm as this is the earliest they are available. Transportation form on SNF folder and copy on pt's chart. REZA updated pt, pt's sister Lois, WENDY Hall, and Joyce at [facility] of transportation time. Plan: Discharge to [facility] for rehabilitation through [facility] via wheelchair can at 4:00pm. Aspen Clarke SYSTEMS ACCOUNTANT, FARM EQUIPMENT SERVICE TECHNICIAN
--- NOTE | 2017-10-24 14:06 | CASEMGMT ---
BYRD form completed with patient at this time. Patient voiced understanding and had no questions or concerns at this time. Patient signed form and provided a copy of signed BYRD form. Medicare Inpatient vs Outpatient information packet provided. WENDY LOPEZ filed signed original in the chart.
[2017-10-24 14:11] VITALS: BP 122/60; PULSE 53; RESP 18; TEMP 37.1; O2SAT 92
[2017-10-24 16:30] VITALS: BP 122/60; PULSE 53; RESP 18; TEMP 37.1; O2SAT 92
== END 2017-10-24 16:36 | disposition skilled nursing facility (03) ==
LOC: ED 09:01 → MS3 09:57
PROVIDERS: Admitting Provider Internal Medicine; Emergency Provider Emergency Medicine; Family Provider Internal Medicine; PCP Internal Medicine; Visit Provider Family Medicine
DX: N17.9 Acute kidney failure, unspecified (principal); G93.40 Encephalopathy, unspecified; N31.9 Neuromuscular dysfunction of bladder, unspecified; K21.9 Gastro-esophageal reflux disease without esophagitis; E78.5 Hyperlipidemia, unspecified; E86.0 Dehydration; M19.90 Unspecified osteoarthritis, unspecified site; I25.10 Atherosclerotic heart disease of native coronary artery without angina pectoris; D50.9 Iron deficiency anemia, unspecified; E87.1 Hypo-osmolality and hyponatremia; E66.9 Obesity, unspecified; G89.4 Chronic pain syndrome; G62.9 Polyneuropathy, unspecified; Z79.899 Other long term (current) drug therapy; Z79.82 Long term (current) use of aspirin; Z68.35 Body mass index [BMI] 35.0-35.9, adult; Z71.3 Dietary counseling and surveillance; Z66 Do not resuscitate
CPT/HCPCS: 36415; 80048; 81001; 85025; 87077; 87086; 87088; 87186; 96360; 96361; 96372; 97110; 97116; 97162; 97166; 97530; 97535; 97802; 99218; 99284; J7030; A4216; G0378

== ENCOUNTER 2017-11-18 15:27 | Observation (INO) | payer MEDICARE, MEDICAID, SELFPAY ==
[2017-11-18 15:34] VITALS: BP 159/65; PULSE 53; RESP 16; TEMP 36.6; O2SAT 98; BMI 35.5
--- NOTE | 2017-11-18 16:00 | CT_ITS ---
STUDY: CT BRAIN WITHOUT CONTRAST REASON FOR EXAM: Female, 82 years old. Weakness dizziness and syncope. RADIATION DOSAGE (If Supplied By Facility): CTDIvol = ( 44.99 ) mGy, DLP = ( 745.49 ) mGycm TECHNIQUE: Transaxial CT imaging of the brain was performed without administration of intravenous contrast material. Individualized dose optimization techniques were used for this CT. COMPARISON: Prior head CT exam of October 03, 2017 FINDINGS: Normal soft tissue structures. Normal calvarium. Normal size ventricles and extra-axial spaces for the patient's age. There are areas of decreased attenuation within the white matter tracts of the supratentorial brain, consistent with microvascular disease changes. /Mature lacunar infarcts in the head of the left caudate nucleus, juxtaposed the left caudate nucleus and the right thalamus. Normal brainstem. There is mild cerebellar atrophy. There is no intracranial hemorrhage. There are no findings of an acute ischemic infarction. Normal visualized paranasal sinuses. CT/Brain/Head without Contrast IMPRESSION: Negative for new hemorrhage, hematoma or mass density. 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 Electronically Signed: Urvashi Hoffman MD at 17:15 EDT , Service support ,
--- NOTE | 2017-11-18 16:01 | EKG12_ITS ---
Test Reason : NEURO S/SX Blood Pressure : / mmHG Vent. Rate : 055 BPM Atrial Rate : 055 BPM P-R Int : 198 ms QRS Dur : 094 ms QT Int : 416 ms P-R-T Axes : 047 010 175 degrees QTc Int : [address] & T wave abnormality, consider anterolateral ischemia Abnormal ECG Confirmed by JUDE HDZ, NAHID ([id number]), purchase request editor JOCE KERN ([id number]) on 11/22/2017 1:46:36 PM Referred By: KAMILLE Confirmed By:NAHID ROQUE MD
--- NOTE | 2017-11-18 16:03 | RAD_ITS ---
STUDY: X-RAY - LEFT ANKLE REASON FOR EXAM: Female, 82 years old. Left ankle pain. TECHNIQUE: 3 view(s) of the ankle. COMPARISON: None. FINDINGS: Normal visualized distal tibia and fibula. Normal medial and lateral malleoli. Normal tibiotalar articulation and ankle mortise. Small cortical avulsion injury from the dorsal surface of the distal talus. The visualized subtalar, talonavicular, calcaneocuboid and tarsal articulations are normal. Soft tissue swelling. RAD/Ankle min 3 Views IMPRESSION: Soft tissue injury with small cortical avulsion injury from the dorsal surface of the distal talus. No additional fracture of the ankle. Electronically Signed: Urvashi Hoffman MD at 17:07 EDT , Service support ,
--- NOTE | 2017-11-18 16:03 | ED.VISSUMM ---
- ER Visit Summary Date of Service: 11/18/17 Chief Complaint: Weakness History of Present Illness: The patient is a 82 F who presents for weakness, dizziness and an episode of altered mental status this afternoon. Patient is currently at [facility] for rehab after multiple hospitalizations. Patient went for a home visit today with her niece, and at approximately 215 this afternoon they were entering the house. Patient stated she could not move her feet when she got to the door. They were able to get her into a chair, and then she went unresponsive, with her eyes rolling up into her head. It lasted approximately 2 minutes. When patient finally came around, she had no confusion, but had mild slurred speech initially. EMS was called and a blood sugar was in the 100s. States she was just scared because she was walking at the same door where she fell in September that led to her multiple hospitalizations. Patient denies any headache, vision changes, chest pain, shortness of breath, abdominal pain, nausea or vomiting, neck pain or back pain. She does complain of weakness, feeling lightheaded, and left ankle pain. She states she [facility] yesterday [facility] but did not have any injuries at that time. Physical Examination: Vital signs: afebrile, hemodynamically stable, no hypoxia on room air General: well nourished, well developed, in no distress Skin: warm, dry, no rash, no pallor HEENT: normocephalic and atraumatic; PERRL, EOMI, moist mucous membranes Cardiovascular: regular rate and rhythm with harsh holosystolic murmur, no peripheral edema, 2+ pulses all distal extremities Respiratory: No increased work of breathing, lungs are clear to auscultation bilaterally, no rales, rhonchi or wheezing Abdominal: Abdomen is soft, nontender with normoactive bowel sounds, no guarding or rebound, no masses MSK: Moves all extremities, no deformities, tenderness to palpation of the left ankle diffusely, generalized weakness Neuro: Awake and alert, oriented ?4. No facial droop, sensation and motor function intact and symmetric, NIH = 0 Test Results: Abnormal Lab Results 11/18/17 11/18/17 11/18/17 16:35 16:35 16:35 WBC 12.7 H RBC 3.63 L Hgb 10.0 L Hct 29.8 L MCV 82.1 MCH 27.5 MCHC 33.6 RDW 17.5 H RDW Differential 51.4 H Plt Count 571 H MPV 8.9 Immature Gran % (Auto) 0.700 Neut % (Auto) 75.7 H Lymph % (Auto) 16.7 L [place] % (Auto) 6.2 Eos % (Auto) 0.5 Baso % (Auto) 0.2 Absolute Neuts (auto) 9.7 H Absolute Lymphs (auto) 2.12 Total Counted Not Reportable PT 13.3 INR 1.0 APTT 36.9 H Sodium 129 L Potassium 5.2 H Chloride 94 L Carbon Dioxide 25.0 Anion Gap 10 BUN 16 Creatinine 1.33 H Estim Creat Clear Calc 29.13 Est GFR (MDRD) Af Amer 49 L Est GFR (MDRD) Non-Af 41 L BUN/Creatinine Ratio 12.0 Glucose 111 H Lactic Acid Calcium 9.5 Total Bilirubin 0.40 AST 27 ALT 18 Alkaline Phosphatase 102 Troponin I < 0.015 Total Protein 8.2 Albumin 3.2 Globulin 5.0 H Albumin/Globulin Ratio 0.6 L Urine Color Urine Clarity Urine pH Ur Specific [place] Urine Protein Urine Glucose (UA) Urine Ketones Urine Occult Blood Urine Nitrite Urine Bilirubin Urine Urobilinogen Ur Leukocyte Esterase Urine RBC Urine WBC Ur Squamous Epith Cells Urine Bacteria Urine Mucus 11/18/17 11/18/17 16:35 17:30 WBC RBC Hgb Hct MCV MCH MCHC RDW RDW Differential Plt Count MPV Immature Gran % (Auto) Neut % (Auto) Lymph % (Auto) [place] % (Auto) Eos % (Auto) Baso % (Auto) Absolute Neuts (auto) Absolute Lymphs (auto) Total Counted PT INR APTT Sodium Potassium Chloride Carbon Dioxide Anion Gap BUN Creatinine Estim Creat Clear Calc Est GFR (MDRD) Af Amer Est GFR (MDRD) Non-Af BUN/Creatinine Ratio Glucose Lactic Acid 1.4 Calcium Total Bilirubin AST ALT Alkaline Phosphatase Troponin I Total Protein Albumin Globulin Albumin/Globulin Ratio Urine Color Yellow Urine Clarity Cloudy Urine pH 5.0 Ur Specific [place] 1.015 Urine Protein Negative Urine Glucose (UA) Normal Urine Ketones Negative Urine Occult Blood Negative Urine Nitrite Negative Urine Bilirubin Negative Urine Urobilinogen Normal Ur Leukocyte Esterase 100 H Urine RBC 0 SEEN Urine WBC 0-5 SEEN Ur Squamous Epith Cells 0-5 SEEN Urine Bacteria 3+ Urine Mucus 0 SEEN Clinical Impression(s) from Imaging Studies Brain CT 11/18/17 16:00 IMPRESSION: Negative for new hemorrhage, hematoma or mass density. 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 Electronically Signed: Urvashi Hoffman MD at 17:15 EDT , Service support , Ankle X-Ray 11/18/17 16:03 IMPRESSION: Soft tissue injury with small cortical avulsion injury from the dorsal surface of the distal talus. No additional fracture of the ankle. Electronically Signed: Urvashi Hoffman MD at 17:07 EDT , Service support , Chest X-Ray 11/18/17 16:45 IMPRESSION: Limited inspiration without other acute cardiopulmonary findings or changes. Electronically Signed: Urvashi Hoffman MD at 17:18 EDT , Service support , Medications Given Discontinued Medications Sodium Chloride () 500 mls @ 1,000 mls/hr IV .Q30M MADDISON Stop: 11/18/17 16:29 Last Admin: 11/18/17 17:06 Dose: 1,000 mls/hr Emergency Department Course and Treatment: Patient's workup sounds most consistent with a syncopal episode. Workup was performed, including a CT scan given that she fell yesterday. It showed no acute intracranial hemorrhage. Chest x-ray showed no infiltrates. X-ray of the left ankle showed a small dorsal talus avulsion fracture. EKG showed no changes from patient's baseline. Patient had hyponatremia of 129 and a mild hypokalemia 5.2 without any EKG changes noted. Creatinine elevated at 1.33, which is double patient's prior creatinine. Troponin negative. Lactate normal. Patient received normal saline for hydration. Patient initially said she was going to sign out AGAINST MEDICAL ADVICE because she did not want to stay. She also refused a walking boot which was offered to help stabilize her left foot due to the talus fracture. Family discussed with patient that she needed to stay and she changed her mind. Patient will be admitted for further management of her acute renal insufficiency with electrolyte derangements and for the talus fracture. Treatment Plan: [] Disposition: [] Impression: Acute renal insufficiency, hyponatremia, mild hypokalemia without EKG changes, syncopal episode, left talus avulsion fracture This note was generated with [employer] dictation software. It may contain incorrect words, spelling, and punctuation that were not noted in review of the chart prior to signing ED Disposition - Plan for ED Patient: Disposition: Acute Care Hospital [facility] Chief Complaint: Neuro S/Sx
--- NOTE | 2017-11-18 16:06 | ED.DCSUM_ITS ---
- ER Visit Summary Date of Service: 11/18/17 Chief Complaint: Weakness History of Present Illness: The patient is a 82 F who presents for weakness, dizziness and an episode of altered mental status this afternoon. Patient is currently at [facility] for rehab after multiple hospitalizations. Patient went for a home visit today with her niece, and at approximately 215 this afternoon they were entering the house. Patient stated she could not move her feet when she got to the door. They were able to get her into a chair, and then she went unresponsive, with her eyes rolling up into her head. It lasted approximately 2 minutes. When patient finally came around, she had no confusion, but had mild slurred speech initially. EMS was called and a blood sugar was in the 100s. States she was just scared because she was walking at the same door where she fell in September that led to her multiple hospitalizations. Patient denies any headache, vision changes, chest pain, shortness of breath, abdominal pain, nausea or vomiting, neck pain or back pain. She does complain of weakness , feeling lightheaded, and left ankle pain. She states she fell yesterday at the [facility] but did not have any injuries at that time. Physical Examination: Vital signs: afebrile, hemodynamically stable, no hypoxia on room air General: well nourished, well developed, in no distress Skin: warm, dry, no rash, no pallor HEENT: normocephalic and atraumatic; PERRL, EOMI, moist mucous membranes Cardiovascular: regular rate and rhythm with harsh holosystolic murmur, no peripheral edema, 2+ pulses all distal extremities Respiratory: No increased work of breathing, lungs are clear to auscultation bilaterally, no rales, rhonchi or wheezing Abdominal: Abdomen is soft, nontender with normoactive bowel sounds, no guarding or rebound, no masses MSK: Moves all extremities, no deformities, tenderness to palpation of the left ankle diffusely, generalized weakness Neuro: Awake and alert, oriented ?4. No facial droop, sensation and motor function intact and symmetric, NIH = 0 Test Results: Abnormal Lab Results 11/18/17 11/18/17 11/18/17 16:35 16:35 16:35 WBC 12.7 H RBC 3.63 L Hgb 10.0 L Hct 29.8 L MCV 82.1 MCH 27.5 MCHC 33.6 RDW 17.5 H RDW Differential 51.4 H Plt Count 571 H MPV 8.9 Immature Gran % (Auto) 0.700 Neut % (Auto) 75.7 H Lymph % (Auto) 16.7 L [place] % (Auto) 6.2 Eos % (Auto) 0.5 Baso % (Auto) 0.2 Absolute Neuts (auto) 9.7 H Absolute Lymphs (auto) 2.12 Total Counted Not Reportable PT 13.3 INR 1.0 APTT 36.9 H Sodium 129 L Potassium 5.2 H Chloride 94 L Carbon Dioxide 25.0 Anion Gap 10 BUN 16 Creatinine 1.33 H Estim Creat Clear Calc 29.13 Est GFR (MDRD) Af Amer 49 L Est GFR (MDRD) Non-Af 41 L BUN/Creatinine Ratio 12.0 Glucose 111 H Lactic Acid Calcium 9.5 Total Bilirubin 0.40 AST 27 ALT 18 Alkaline Phosphatase 102 Troponin I < 0.015 Total Protein 8.2 Albumin 3.2 Globulin 5.0 H Albumin/Globulin Ratio 0.6 L Urine Color Urine Clarity Urine pH Ur Specific [place] Urine Protein Urine Glucose (UA) Urine Ketones Urine Occult Blood Urine Nitrite Urine Bilirubin Urine Urobilinogen Ur Leukocyte Esterase Urine RBC Urine WBC Ur Squamous Epith Cells Urine Bacteria Urine Mucus 11/18/17 11/18/17 16:35 17:30 WBC RBC Hgb Hct MCV MCH MCHC RDW RDW Differential Plt Count MPV Immature Gran % (Auto) Neut % (Auto) Lymph % (Auto) [place] % (Auto) Eos % (Auto) Baso % (Auto) Absolute Neuts (auto) Absolute Lymphs (auto) Total Counted PT INR APTT Sodium Potassium Chloride Carbon Dioxide Anion Gap BUN Creatinine Estim Creat Clear Calc Est GFR (MDRD) Af Amer Est GFR (MDRD) Non-Af BUN/Creatinine Ratio Glucose Lactic Acid 1.4 Calcium Total Bilirubin AST ALT Alkaline Phosphatase Troponin I Total Protein Albumin Globulin Albumin/Globulin Ratio Urine Color Yellow Urine Clarity Cloudy Urine pH 5.0 Ur Specific [place] 1.015 Urine Protein Negative Urine Glucose (UA) Normal Urine Ketones Negative Urine Occult Blood Negative Urine Nitrite Negative Urine Bilirubin Negative Urine Urobilinogen Normal Ur Leukocyte Esterase 100 H Urine RBC 0 SEEN Urine WBC 0-5 SEEN Ur Squamous Epith Cells 0-5 SEEN Urine Bacteria 3+ Urine Mucus 0 SEEN Clinical Impression(s) from Imaging Studies Brain CT 11/18/17 16:00 IMPRESSION: Negative for new hemorrhage, hematoma or mass density. 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 Electronically Signed: Urvashi Hoffman MD at 17:15 EDT , Service support , Ankle X-Ray 11/18/17 16:03 IMPRESSION: Soft tissue injury with small cortical avulsion injury from the dorsal surface of the distal talus. No additional fracture of the ankle. Electronically Signed: Urvashi Hoffman MD at 17:07 EDT , Service support , Chest X-Ray 11/18/17 16:45 IMPRESSION: Limited inspiration without other acute cardiopulmonary findings or changes. Electronically Signed: Urvashi Hoffman MD at 17:18 EDT , Service support , Medications Given Discontinued Medications Sodium Chloride () 500 mls @ 1,000 mls/hr IV .Q30M [facility] Stop: 11/18/17 16:29 Last Admin: 11/18/17 17:06 Dose: 1,000 mls/hr Emergency Department Course and Treatment: Patient's workup sounds most consistent with a syncopal episode. Workup was performed, including a CT scan given that she fell yesterday. It showed no acute intracranial hemorrhage. Chest x-ray showed no infiltrates. X-ray of the left ankle showed a small dorsal talus avulsion fracture. EKG showed no changes from patient's baseline. Patient had hyponatremia of 129 and a mild hypokalemia 5.2 without any EKG changes noted. Creatinine elevated at 1.33, which is double patient's prior creatinine. Troponin negative. Lactate normal. Patient received normal saline for hydration. Patient initially said she was going to sign out AGAINST MEDICAL ADVICE because she did not want to stay. She also refused a walking boot which was offered to help stabilize her left foot due to the talus fracture. Family discussed with patient that she needed to stay and she changed her mind. Patient will be admitted for further management of her acute renal insufficiency with electrolyte derangements and for the talus fracture. Treatment Plan: [] Disposition: [] Impression: Acute renal insufficiency, hyponatremia, mild hypokalemia without EKG changes, syncopal episode, left talus avulsion fracture This note was generated with [employer] dictation software. It may contain incorrect words, spelling, and punctuation that were not noted in review of the chart prior to signing ED Disposition - Plan for ED Patient: Disposition: Acute Care Hospital [facility] Chief Complaint: Neuro S/Sx
--- NOTE | 2017-11-18 16:45 | RAD_ITS ---
STUDY: X-RAY CHEST REASON FOR EXAM: Female, 82 years old. Dizziness TECHNIQUE: Single AP portable view of the chest. COMPARISON: Prior chest radiograph of October 05, 2017. FINDINGS: Limited inspiration without new consolidation, focal atelectasis or a substantial pleural effusion. There is no demonstrated pleural abnormality. Stable cardiac size status post prior midline sternotomy. Normal mediastinum and [place]. Normal visualized pulmonary arteries. Normal visualized aortic arch and descending thoracic aorta. Normal visualized ribs, clavicles, and shoulders. There is no demonstrated abnormality of the visualized soft tissue structures of the upper abdomen. RAD/Chest 1 View (Portable) IMPRESSION: Limited inspiration without other acute cardiopulmonary findings or changes. Electronically Signed: Urvashi Hoffman MD at 17:18 EDT , Service support ,
[2017-11-18 17:10] LABS: ALB/GLOB Ratio 0.6 RATIO (0.9-2.4); AST(SGOT) 27 U/L (15-37); Alanine Aminotransfer ALT/SGPT 18 U/L (13-56); Albumin, Serum 3.2 g/dL (3.2-5.0); Alkaline Phosphatase 102 U/L (45-117); Anion Gap 10 (5-15); BUN 16 mg/dL (7-18); Calcium,Total 9.5 mg/dL (8.5-10.1); Chloride 94 mmol/L (98-107); Creatinine, Serum 1.33 mg/dL (0.55-1.02); EST Glomerular Filtration Rate 41 mL/min (>60); Est Glom Filt Rate - Afr Amer 49 mL/min (>60); Estimated Creatinine Clearance 29.13 ml/min; Glucose 111 mg/dL (74-106); Potassium 5.2 mmol/L (3.5-5.1); Protein, Total 8.2 g/dL (6.4-8.2); Sodium Level 129 mmol/L (136-145)
[2017-11-18 17:13] LABS: Absolute Lymphocyte Count 2.12 X10^3/ul (0.83-4.51); Absolute Neutrophil Count 9.7 X10^3/uL (2.0-7.7); Basophil# 0.02 X10^3/uL; Basophil% 0.2 % (0-1); Eosinophil# 0.06 X10^3/uL; Eosinophils% 0.5 % (0-5); Hematocrit 29.8 % (37-47); Lymphocyte # 2.12 X10^3/ul (4.0); Lymphocyte % 16.7 % (19-41); Mean Corp Hgb Conc 33.6 g/gl (32-36); Mean Corpuscular Hgb 27.5 pg (27.0-32.0); Mean Corpuscular Volume 82.1 fL (81-99); Mean Platelet Vol. 8.9 fl (6.2-12.0); Monocyte# 0.79 X10^3/uL; Monocyte% 6.2 % (0-10); Neutrophil # 9.65 X10^3/uL (2.7-7.7); Neutrophil % 75.7 % (47-70); POSITIVE COUNT NO; POSITIVE DIFFERENTIAL NO; POSITIVE MORPHOLOGY NO; Platelet Count 571 K/mm3 (150-450); RBC Distribution Width CV 17.5 % (11.6-14.6); RBC Distribution Width SD 51.4 fl (35.1-43.9); Red Blood Count 3.63 M/mm3 (4.2-5.4); White Blood Count 12.7 K/mm3 (4.4-11.0)
[2017-11-18 17:16] LABS: Prothrombin Time (Protime)PT. 13.3 SECONDS (11.7-14.9)
[2017-11-18 17:17] LABS: Partial Thromboplast Time 36.9 Seconds (24.1-36.2)
[2017-11-18 17:23] LABS: Lactic Acid 1.4 mmol/L (0.4-2.0)
[2017-11-18 17:42] LABS: Mucous, Urine 0 SEEN /hpf (<or=2+); Red Blood Cells-Urine 0 SEEN /hpf (0-5)
[2017-11-18 17:52] LABS: Color, Urine Yellow (Yellow); Glucose, Dipstick Normal (Normal); Ketone-Dipstick Negative (Negative); Leukocyte Esterase-Dipstick 100 /ul (Negative); Nitrite-Dipstick Negative (Negative); Occult Blood-Urine Negative /ul (Negative); Protein-Dipstick Negative (Negative); Specific Gravity, Urine 1.015 (1.002-1.030); Urine Bilirubin Dipstick Negative (Negative); Urine Clarity Cloudy (Clear); Urine Urobilinogen Normal (Normal)
[2017-11-18 18:13] VITALS: BP 154/60; PULSE 63; RESP 16; O2SAT 96
[2017-11-18 18:17] LABS: Bacteria 3+ /hpf (None Seen); Squamous Epithelial Cells - UA 0-5 SEEN /hpf (5-10); White Blood Cells 0-5 SEEN /hpf (0-5)
--- NOTE | 2017-11-18 19:09 | PCM.HP.STD ---
Problem List (1) Syncope Status: Acute (2) Electrolyte abnormality Status: Acute (3) Injury of left foot Status: Acute History of Present Illness Date of Admission: 11/18/17 The patient is a 82 year old F with a significant history of hypertension, CAD status post CABG and stents, who presents because of a syncopal episode on the same day of admission. Patient has been in the hospital for multiple times in the last couple of months because of multiple falls. She spent some time at a TCU and then she went to a rehab facility. On the day of this admission the patient's went home from a rehab facility for a home visit. While at home she was working with therapy and that she could not move anymore. She became unresponsive and was made to sit down. Associated with her symptoms was slurry speech. All her symptoms disappeared. Patient was sent to the emergency department for further evaluation. Also about 3 days to this admission, while at the rehab facility patient fell. She developed pain in her left ankle after this fall. ED course: At emergency department patient has some mild hyperkalemia, hyponatremia and she was found to be in MARII. Because her x-ray showed a left talus injury ED doctor discussed with patient for possible foot boots. However patient was not interested in the boots. The ED discuss further with him orthopedic surgeon and a decision was made that if patient is not interested in boots she can be managed with pain medication as necessary. CT scan of the head did not show any acute pathology and her blood glucose was unremarkable. Because of resolution of his syncopal episode patient wanted to leave AMA but upon further discussion with the ED doctor and family patient decided to stay. Past Medical History Past Medical History (Chronic Problems): Chronic Problems HTN (hypertension) (Chronic) Anxiety (Chronic) Neuropathy (Chronic) Microcytic anemia (Chronic) History of urinary self-catheterization (Chronic) Neurogenic bladder Osteoarthritis (Chronic) History of coronary artery disease (Chronic) Grade I diastolic dysfunction (Chronic) GERD (gastroesophageal reflux disease) (Chronic) Hyperlipidemia (Chronic) Chronic pain (Chronic) Allergies cortisone [Cortisone] Allergy (Verified 11/18/17 15:36) Swelling Penicillins Allergy (Verified 11/18/17 15:36) Swelling sulfamethoxazole [From Bactrim] Allergy (Verified 11/18/17 15:36) Swelling trimethoprim [From Bactrim] Allergy (Verified 11/18/17 15:36) Swelling Home Medications: Ambulatory Orders Medication Instructions Recorded Calcium Carbonate/Vitamin D3 1 each PO DAILY 06/25/13 [Calcium 600-Vit D3 400 Tablet] Glucosamine Sulfate Dipot Chlr 500 mg PO DAILY 06/25/13 [Glucosamine Relief] Hydrochlorothiazide 25 mg PO DAILY 06/25/13 Pantoprazole Sodium [Protonix] 40 mg PO DAILY 06/27/13 Amlodipine [Norvasc] 10 mg PO DAILY 10/07/17 Aspirin 325 mg PO DAILY@0800 10/07/17 Gabapentin [Neurontin] 300 mg PO BIDCM 10/07/17 Gabapentin [Neurontin] 400 mg PO QHS 10/07/17 Lisinopril [Zestril] 10 mg PO BID 10/07/17 Metoprolol Tartrate [Lopressor 50 mg PO BID 10/07/17 (beta kriby)] Acetaminophen [Tylenol] 650 mg PO Q4H PRN 11/18/17 Escitalopram Oxalate [Lexapro] 10 mg PO DAILY 11/18/17 Nitroglycerin [Nitrostat] 0.4 mg SUBLINGUAL Q5M PRN 11/18/17 Nystatin 1 applicatio TP BID 11/18/17 Oxybutynin Chloride [Ditropan Xl] 10 mg PO DAILY 11/18/17 Psyllium Husk (with Sugar) 3.4 gm PO DAILY PRN 11/18/17 [Metamucil Packet] Senna [Senokot] 2 tablet PO DAILY 11/18/17 traMADol [Ultram (G)] 50 mg PO Q6H PRN PRN 11/18/17 Surgical History: appendectomy, coronary bypass surgery, hysterectomy Psychiatric History: No pertinent psych hx SHANK PINNER History: No pertinent SHANK PINNER history Lives: [facility] Smoking Status: Never smoker Tobacco Use: Non-smoker Alcohol: None Drugs: None - *Family History Maternal Family History: Family History (Last Reviewed 11/18/17 @ 20:21 by Prosper Fagan MD) Sister Diabetes History Items: Cancer Paternal Family History: Family History (Last Reviewed 11/18/17 @ 20:21 by Prosper Fagan MD) Sister Diabetes History Items: No pertinent history Sibling Family History: Family History (Last Reviewed 11/18/17 @ 20:21 by Prosper Fagan MD) Sister Diabetes History Items: Diabetes Review of Systems Constitutional: Reports: Weakness Eyes: Denies: Blurred vision HEENT: Denies: Head Aches, Sinus Congestion, Sinus Drainage Cardiovascular: Reports: Syncope. Denies: Chest Pain Respiratory: Denies: Cough, Shortness of breath at rest, Sputum production Gastrointestinal: Denies: Abdominal Pain, Nausea, Vomiting Genitourinary: Denies: Dysuria Musculoskeletal: Reports: - - Left foot pain Skin: Denies: Rash, Wounds Neurological: Denies: Focal weakness, Headaches Psychiatric: Denies: Anxiety, Depression, Homicidal Ideations, Suicidal Ideations Hematologic/ Lymphatic: Denies: Easy Bruising, Easy Bleeding VTE Information - Inpt Only VTE Present on Admission: No VTE Mechan Device Prophylaxis: Knee High MILAN Hose VTE Pharm Prophylaxis ordered?: Yes Patient Problems: Active and Suspected Problems Syncope (Acute) Electrolyte abnormality (Acute) Injury of left foot (Acute) - Physical Exam General: Alert, Oriented x3, Cooperative HEENT: Atraumatic, PERRLA, EOMI, Normocephalic Oral: Dry Mucosa Neck: Supple, No JVD, Negative Carotid Bruits Lungs: Clear to auscultation, Normal air movement Cardiovascular: Regular rate, No murmurs Abdomen: Bowel Sounds Present, Soft, Non Tender Extremities: No edema, Capillary Refill Less than 3 Seconds Skin: No rashes, No breakdown Musculoskeletal: Tenderness - left ankle Neurological: Cranial nerves II-XII grossly intact Psych/Mental Status: Normal Affect, Appropriate Vital Signs Temp Pulse Resp BP Pulse Ox 98 F 63 16 154/60 H 96 11/18/17 15:34 11/18/17 18:13 11/18/17 18:13 11/18/17 18:13 11/18/17 18:13 Oxygen Delivery Method Room Air Weight: 94 kg Body Mass Index (BMI) 35.5 Finger Stick Blood Glucose 106 Laboratory Tests Past 24 Hrs 11/18/17 11/18/17 11/18/17 16:35 16:35 16:35 WBC 12.7 H RBC 3.63 L Hgb 10.0 L Hct 29.8 L MCV 82.1 MCH 27.5 MCHC 33.6 RDW 17.5 H RDW Differential 51.4 H Plt Count 571 H MPV 8.9 Immature Gran % (Auto) 0.700 Neut % (Auto) 75.7 H Lymph % (Auto) 16.7 L [place] % (Auto) 6.2 Eos % (Auto) 0.5 Baso % (Auto) 0.2 Absolute Neuts (auto) 9.7 H Absolute Lymphs (auto) 2.12 Total Counted Not Reportable PT 13.3 INR 1.0 APTT 36.9 H Sodium 129 L Potassium 5.2 H Chloride 94 L Carbon Dioxide 25.0 Anion Gap 10 BUN 16 Creatinine 1.33 H Estim Creat Clear Calc 29.13 Est GFR (MDRD) Af Amer 49 L Est GFR (MDRD) Non-Af 41 L BUN/Creatinine Ratio 12.0 Glucose 111 H Lactic Acid Calcium 9.5 Total Bilirubin 0.40 AST 27 ALT 18 Alkaline Phosphatase 102 Troponin I < 0.015 Total Protein 8.2 Albumin 3.2 Globulin 5.0 H Albumin/Globulin Ratio 0.6 L Urine Color Urine Clarity Urine pH Ur Specific [place] Urine Protein Urine Glucose (UA) Urine Ketones Urine Occult Blood Urine Nitrite Urine Bilirubin Urine Urobilinogen Ur Leukocyte Esterase Urine RBC Urine WBC Ur Squamous Epith Cells Urine Bacteria Urine Mucus 11/18/17 11/18/17 16:35 17:30 WBC RBC Hgb Hct MCV MCH MCHC RDW RDW Differential Plt Count MPV Immature Gran % (Auto) Neut % (Auto) Lymph % (Auto) [place] % (Auto) Eos % (Auto) Baso % (Auto) Absolute Neuts (auto) Absolute Lymphs (auto) Total Counted PT INR APTT Sodium Potassium Chloride Carbon Dioxide Anion Gap BUN Creatinine Estim Creat Clear Calc Est GFR (MDRD) Af Amer Est GFR (MDRD) Non-Af BUN/Creatinine Ratio Glucose Lactic Acid 1.4 Calcium Total Bilirubin AST ALT Alkaline Phosphatase Troponin I Total Protein Albumin Globulin Albumin/Globulin Ratio Urine Color Yellow Urine Clarity Cloudy Urine pH 5.0 Ur Specific [place] 1.015 Urine Protein Negative Urine Glucose (UA) Normal Urine Ketones Negative Urine Occult Blood Negative Urine Nitrite Negative Urine Bilirubin Negative Urine Urobilinogen Normal Ur Leukocyte Esterase 100 H Urine RBC 0 SEEN Urine WBC 0-5 SEEN Ur Squamous Epith Cells 0-5 SEEN Urine Bacteria 3+ Urine Mucus 0 SEEN Assessment/Plan All Active Problems Hypertensive urgency (Acute) Hyponatremia (Acute) Right hip pain (Acute) Generalized weakness (Acute) Acute kidney injury (Acute) Encephalopathy acute (Acute) Debility (Acute) Syncope (Acute) Electrolyte abnormality (Acute) Injury of left foot (Acute) The patient is a 82 year old F with a significant history of hypertension, CAD status post CABG and stents, who presents because of a syncopal episode on the same day of admission and was found to have electrolyte imbalance, MARII and distal talus injury. Syncopal episode Most likely her syncopal episode was from hypovolemia and electrolyte imbalance. Other differential diagnosis includes orthostatic hypotension, arrhythmia. TIA, vasovagal syncope or other The patient received IV normal saline at the ED. We will continue with another liter of IV normal saline. Hyponatremia At her presentation sodium was 129. Her sodium on 11/16/2017 was 136. Normal saline as above. Hyperkalemia Potassium was 5.2. Her previous potassium has always be at 4.5 or below. We will monitor this mild hyperkalemia. BMP in a.m. MARII At presentation her creatinine was 1.33. Her creatinine on 11/16/2017 was 0.82. Likely prerenal secondary to hypovolemia HCTZ discontinued at this time Gentle IV hydration Avoid nephrotoxins Hypertension Amlodipine, and metoprolol continue Hydralazine as needed added. lisinopril and HCTZ discontinued because of hypovolemia and HPI. Acute left foot injury Tylenol and tramadol as needed Weightbearing as tolerated Patient to work with PT and OT Debility Therapy with PT and OT DVT prophylaxis Home MILAN allen continueD Subcutaneous heparin. Code Visit OBSV E&M: 34116 Initial observation care L2
[2017-11-18 19:38] VITALS: BMI 35.6
--- NOTE | 2017-11-18 20:03 | NURSING ---
MAR requested from [facility].
[2017-11-18 20:06] VITALS: BMI 35.6
[2017-11-18 20:29] VITALS: PULSE 68
[2017-11-18 20:43] VITALS: BP 176/80; PULSE 67; RESP 18; TEMP 36.8; O2SAT 98
[2017-11-18] MEDS: Miconazole-7 Nitrate Cream 1 APPLIC VAGINAL (22:56)
[2017-11-18 23:00] VITALS: PULSE 58
[2017-11-18 23:11] VITALS: BP 176/80; PULSE 67
[2017-11-18] MEDS: Heparin Injection (Vial) 5,000 UNIT/ML VIAL 5000 UNIT SC (23:11)
[2017-11-18] MEDS: Metoprolol Tartrate 50 MG Tablet PO (23:11)
[2017-11-18] MEDS: Nystatin Ointment 1 APPLIC TOPICAL (23:12)
[2017-11-18] MEDS: Gabapentin 400 MG Capsule PO (23:13)
[2017-11-18] MEDS: Acetaminophen 325 MG Tablet 650 MG PO (23:14)
[2017-11-18] MEDS: Zolpidem Tartrate 5 MG Tablet PO (23:15)
[2017-11-18] MEDS: 0.9% Normal Saline 1,000 ML 100 ML IV (23:33)
[2017-11-19] VITALS (12 sets, daily range): BP systolic 149–171; BP diastolic 61–74; PULSE 51–76; RESP 16–18; TEMP 36.7–36.9; O2SAT 94–100
[2017-11-19 06:50] LABS: Absolute Lymphocyte Count 2.29 X10^3/ul (0.83-4.51); Basophil# 0.03 X10^3/uL; Basophil% 0.3 % (0-1); Eosinophil# 0.08 X10^3/uL; Eosinophils% 0.8 % (0-5); Hematocrit 28.6 % (37-47); Hemoglobin 9.2 g/dl (12.0-15.0); Lymphocyte # 2.29 X10^3/ul (4.0); Lymphocyte % 22.8 % (19-41); Mean Corp Hgb Conc 32.2 g/gl (32-36); Mean Corpuscular Hgb 26.4 pg (27.0-32.0); Mean Corpuscular Volume 81.9 fL (81-99); Mean Platelet Vol. 8.5 fl (6.2-12.0); Monocyte# 0.57 X10^3/uL; Monocyte% 5.7 % (0-10); Neutrophil # 7.03 X10^3/uL (2.7-7.7); Neutrophil % 70.1 % (47-70); Platelet Count 433 K/mm3 (150-450); RBC Distribution Width CV 17.1 % (11.6-14.6); RBC Distribution Width SD 51.5 fl (35.1-43.9); Red Blood Count 3.49 M/mm3 (4.2-5.4)
[2017-11-19 07:17] LABS: Anion Gap 8 (5-15); BUN 12 mg/dL (7-18); BUN/Creat Ratio 15.5 RATIO (10-20); Chloride 99 mmol/L (98-107); Creatinine, Serum 0.77 mg/dL (0.55-1.02); EST Glomerular Filtration Rate 76 mL/min (>60); Est Glom Filt Rate - Afr Amer 92 mL/min (>60); Estimated Creatinine Clearance 38.75 ml/min; Glucose 106 mg/dL (74-106); Sodium Level 133 mmol/L (136-145)
[2017-11-19 07:20] LABS: POSITIVE COUNT NO; POSITIVE DIFFERENTIAL NO; POSITIVE MORPHOLOGY NO
[2017-11-19] MEDS: Gabapentin 300 MG Capsule PO ×2 (09:08→16:53)
[2017-11-19] MEDS: Tolterodine Tartrate 2 MG CAP.SA PO (09:08)
[2017-11-19] MEDS: Heparin Injection (Vial) 5,000 UNIT/ML VIAL 5000 UNIT SC ×2 (09:08→21:07)
[2017-11-19] MEDS: Aspirin 325 MG Tablet PO (09:08)
[2017-11-19] MEDS: Escitalopram Oxalate 10 MG Tablet PO (09:09)
[2017-11-19] MEDS: Metoprolol Tartrate 50 MG Tablet PO ×2 (09:09→21:06)
[2017-11-19] MEDS: Nystatin Ointment 1 APPLIC TOPICAL ×2 (09:09→21:07)
[2017-11-19] MEDS: amLODIPine 10 MG Tablet PO (09:10)
[2017-11-19] MEDS: Calcium Carb/Vitamin D 1 TABLET Tablet PO (09:10)
[2017-11-19] MEDS: Pantoprazole Sodium 40 MG Tablet PO (09:11)
[2017-11-19] MEDS: Magnesium Hydroxide 30 ML UDC PO (09:13)
--- NOTE | 2017-11-19 10:03 | CASEMGMT ---
Addendum entered by Yamilex Hernandez 11/19/17 12:05: SW spoke w/Joyce from admissions at [facility], she states pt should be okay to return today, though Joyce states they cannot guarantee that [employer] will cover if pt returns. Joyce explains that though pt is here observation and has been here less than 24 hours, they cannot guarantee coverage by insurance as pt was here for one midnight. REZA asked if pt is not covered would [facility] absorb the cost or bill the pt. Joyce called her sales and marketing administrator and was told pt would be billed. REZA explained that pt cannot return then, as this would not be fair to pt to get a bill if [employer] does not cover. REZA let Joyce know pt will need to stay and we will send clinicals on Tuesday. SW also let pt's RN know this information, she will let pt know as pt is sleeping at present. REZA called pt's niece Ivelissemariah Perkins, let her know pt will need to stay since we cannot guarantee that pt will be covered by [employer] if she were to return today--and pt would get a bill if not covered. REZA explained pt will need to stay so we can get precert. Juliano states understanding and is in agreement with this. Ivelisse asked to be called with any issues, SW explained will have SW on Tuesday call her and let her know if pt can go to [facility] on Tuesday. Juliano states understanding. REZA will continue to follow. REZA also texted physician to let him know pt will need to stay. CRISTI Regan ,[employer] Original Note: Addendum entered by Yamilex Hernandez 11/19/17 10:47: SW received message back from RN at [facility], pt can return to [facility] today. REZA let physician and area secretary know, green sheet given to area secretary if SW not able to assist w/discharge back to [facility]. CRISTI Regan, [employer] Original Note: Addendum entered by Yamilex Hernandez 11/19/17 10:23: As per physician, pt is ready for discharge today. REZA called [facility] back, message left for RN in their TCU where pt has been staying, inquired if pt can return today, if she has spoken w/anyone from admissions. SW will await call back. CRISTI Regan, [employer] Original Note: SW spoke w/pt in room in regard to discharge plan. Pt is agreeable to return to [facility]. Pt states she was going home to visit her niece and became nervous, did not want to go in the house, then passed out. SW explained we will need to see if she needs a new precert to return to [facility]. Pt states understanding. Pt has been at [facility] under her insurance for the last 3 weeks. SW called [facility], spoke w/RN and asked if pt can return if ready today or if she will need a new precert. She will try to reach out to the admissions staff to see if she can find out. SW will await call back. If SW does not hear back from [facility], pt will need to stay until Tuesday, as we cannot send pt back unless we know for certain that a new precert is not needed. SW will continue to follow. CRISTI Regan, [employer]
--- NOTE | 2017-11-19 10:43 | PCM.PN.HOSP ---
Patient Problems: Active and Suspected Problems Syncope (Acute) Electrolyte abnormality (Acute) Injury of left foot (Acute) Subjective: Constipated for a few days. No abdominal pain. Vitals/I&O's: Vital Signs Temp Pulse Resp BP Pulse Ox 36.9 C 62 18 149/61 H 100 11/19/17 08:40 11/19/17 09:09 11/19/17 08:40 11/19/17 09:09 11/19/17 08:40 Oxygen Delivery Method Room Air Weight: 94.1 kg Body Mass Index (BMI) 35.6 Intake and Output for Last 24 Hours 11/17/17 11/18/17 11/19/17 23:59 23:59 23:59 Intake Total 1560 / 1560 Output Total 900 / 900 Balance 660 / 660 General: Alert, Cooperative, No apparent distress HEENT: Atraumatic, Normocephalic Neck: No Nodes, Thyroid Normal Size and Texture Lungs: Clear to auscultation, Normal air movement, No rhonchi, No wheeze Cardiovascular: Regular rate, Regular Rhythm, Normal S1, Normal S2 Abdomen: Bowel Sounds Present, Soft, Non Tender, Non-Distended, No Hepato-splenomegaly Extremities: No edema, No Calf Tenderness Laboratory Results 11/19/17 06:00: WBC 10.0, RBC 3.49 L, Hgb 9.2 L, Hct 28.6 L, MCV 81.9, MCH 26.4 L, MCHC 32.2, RDW 17.1 H, RDW Differential 51.5 H, Plt Count 433, MPV 8.5, Immature Gran % (Auto) 0.300, Neut % (Auto) 70.1 H, Lymph % (Auto) 22.8, Ray % (Auto) 5.7, Eos % (Auto) 0.8, Baso % (Auto) 0.3, Absolute Neuts (auto) 7.0, Absolute Lymphs (auto) 2.29, Total Counted Not Reportable 11/19/17 06:00: Sodium 133 L, Potassium 4.0, Chloride 99, Carbon Dioxide 26.0, Anion Gap 8, BUN 12, Creatinine 0.77, Estim Creat Clear Calc 38.75, Est GFR (MDRD) Af Amer 92, Est GFR (MDRD) Non-Af 76, BUN/Creatinine Ratio 15.5, Glucose 106, Calcium 9.0 Current Medications Acetaminophen (Tylenol) 650 mg PO Q6H PRN PRN PRN Reason: PAIN Last Admin: 11/18/17 23:14 Dose: 650 mg Amlodipine Besylate (Norvasc) 10 mg PO DAILY [facility] Last Admin: 11/19/17 09:10 Dose: 10 mg Aspirin (Aspirin) 325 mg PO DAILY@0800 [facility] Last Admin: 11/19/17 09:08 Dose: 325 mg Bisacodyl (Dulcolax) 10 mg PO DAILY PRN PRN PRN Reason: Constipation Calcium/Vitamin D (Os-Shine 500mg + D) 1 tablet PO DAILY [facility] Last Admin: 11/19/17 09:10 Dose: 1 tablet Docusate Sodium (Colace) 200 mg PO BID PRN PRN PRN Reason: Constipation Escitalopram Oxalate (Lexapro) 10 mg PO DAILY [facility] Last Admin: 11/19/17 09:09 Dose: 10 mg [facility]in) [facility] Last Admin: 11/19/17 09:08 Dose: 300 mg Gabapentin (Neurontin) 400 mg PO QHS [facility] Last Admin: 11/18/17 23:13 Dose: 400 mg Heparin Sodium (Porcine) (Heparin Na) 5,000 unit SC Q12 [facility] Last Admin: 11/19/17 09:08 Dose: 5,000 u Hydralazine HCl (Apresoline Iv) 5 mg IV Q4H PRN PRN PRN Reason: SBP > 160 Magnesium Hydroxide (Milk Of Magnesia) 30 ml PO DAILY PRN PRN Reason: Constipation Last Admin: 11/19/17 09:13 Dose: 30 ml Metoprolol Tartrate (Lopressor (Beta Saloni)) 50 mg PO BID [facility] Last Admin: 11/19/17 09:09 Dose: 50 mg Miconazole Nitrate (Monistat 7) 1 applic VAGINAL QHS [facility] Stop: 11/25/17 22:01 Last Admin: 11/18/17 22:56 Dose: 1 applic Nystatin (Mycostatin) 1 applic TOPICAL BID [facility] Last Admin: 11/19/17 09:09 Dose: 1 applicatio Ondansetron HCl (Zofran) 4 mg IV Q8H PRN PRN PRN Reason: Nausea Pantoprazole Sodium (Protonix) 40 mg PO DAILY [facility] Last Admin: 11/19/17 09:11 Dose: 40 mg Sodium Chloride () 5 - 30 ml IV UD PRN PRN Reason: SALINE FLUSH Tolterodine Tartrate (Detrol La) 2 mg PO DAILY [facility] Last Admin: 11/19/17 09:08 Dose: 2 mg Zolpidem Tartrate (Ambien (Generic)) 5 mg PO QHS PRN PRN PRN Reason: INSOMNIA Last Admin: 11/18/17 23:15 Dose: 5 mg Medical Necessity - Tobacco Use Smoking Status: Never smoker Tobacco Use: Non-smoker Assessment/Plan All Active Problems Hypertensive urgency (Acute) Hyponatremia (Acute) Right hip pain (Acute) Generalized weakness (Acute) Acute kidney injury (Acute) Encephalopathy acute (Acute) Debility (Acute) Syncope (Acute) Electrolyte abnormality (Acute) Injury of left foot (Acute) 1. Syncope suspect vasovagal due to physical exertion and dehydration no further neurologic work up needed 2. MARII resolved prerenal 3. Debility: return to SNF today. 4. Constipation: dulcolax, colace, miralax
--- NOTE | 2017-11-19 10:46 | PN_ITS ---
Patient Problems: Active and Suspected Problems Syncope (Acute) Electrolyte abnormality (Acute) Injury of left foot (Acute) Subjective: Constipated for a few days. No abdominal pain. Vitals/I&O's: Vital Signs Temp Pulse Resp BP Pulse Ox 36.9 C 62 18 149/61 H 100 11/19/17 08:40 11/19/17 09:09 11/19/17 08:40 11/19/17 09:09 11/19/17 08:40 Oxygen Delivery Method Room Air Weight: 94.1 kg Body Mass Index (BMI) 35.6 Intake and Output for Last 24 Hours 11/17/17 11/18/17 11/19/17 23:59 23:59 23:59 Intake Total 1560 / 1560 Output Total 900 / 900 Balance 660 / 660 General: Alert, Cooperative, No apparent distress HEENT: Atraumatic, Normocephalic Neck: No Nodes, Thyroid Normal Size and Texture Lungs: Clear to auscultation, Normal air movement, No rhonchi, No wheeze Cardiovascular: Regular rate, Regular Rhythm, Normal S1, Normal S2 Abdomen: Bowel Sounds Present, Soft, Non Tender, Non-Distended, No Hepato- splenomegaly Extremities: No edema, No Calf Tenderness Laboratory Results 11/19/17 06:00: WBC 10.0, RBC 3.49 L, Hgb 9.2 L, Hct 28.6 L, MCV 81.9, MCH 26.4 L, MCHC 32.2, RDW 17.1 H, RDW Differential 51.5 H, Plt Count 433, MPV 8.5, Immature Gran % (Auto) 0.300, Neut % (Auto) 70.1 H, Lymph % (Auto) 22.8, Will % (Auto) 5.7, Eos % (Auto) 0.8, Baso % (Auto) 0.3, Absolute Neuts (auto) 7.0, Absolute Lymphs (auto) 2.29, Total Counted Not Reportable 11/19/17 06:00: Sodium 133 L, Potassium 4.0, Chloride 99, Carbon Dioxide 26.0, Anion Gap 8, BUN 12, Creatinine 0.77, Estim Creat Clear Calc 38.75, Est GFR ( MDRD) Af Amer 92, Est GFR (MDRD) Non-Af 76, BUN/Creatinine Ratio 15.5, Glucose 106, Calcium 9.0 Current Medications Acetaminophen (Tylenol) 650 mg PO Q6H PRN PRN PRN Reason: PAIN Last Admin: 11/18/17 23:14 Dose: 650 mg Amlodipine Besylate (Norvasc) 10 mg PO DAILY [facility] Last Admin: 11/19/17 09:10 Dose: 10 mg Aspirin (Aspirin) 325 mg PO DAILY@0800 [facility] Last Admin: 11/19/17 09:08 Dose: 325 mg Bisacodyl (Dulcolax) 10 mg PO DAILY PRN PRN PRN Reason: Constipation Calcium/Vitamin D (Os-Shine 500mg + D) 1 tablet PO DAILY [facility] Last Admin: 11/19/17 09:10 Dose: 1 tablet Docusate Sodium (Colace) 200 mg PO BID PRN PRN PRN Reason: Constipation Escitalopram Oxalate (Lexapro) 10 mg PO DAILY [facility] Last Admin: 11/19/17 09:09 Dose: 10 mg Gabap[facility] ([facility]ontin) [facility] Last Admin: 11/19/17 09:08 Dose: 300 mg Gabapentin (Neurontin) 400 mg PO QHS [facility] Last Admin: 11/18/17 23:13 Dose: 400 mg Heparin Sodium (Porcine) (Heparin Na) 5,000 unit SC Q12 [facility] Last Admin: 11/19/17 09:08 Dose: 5,000 u Hydralazine HCl (Apresoline Iv) 5 mg IV Q4H PRN PRN PRN Reason: SBP > 160 Magnesium Hydroxide (Milk Of Magnesia) 30 ml PO DAILY PRN PRN Reason: Constipation Last Admin: 11/19/17 09:13 Dose: 30 ml Metoprolol Tartrate (Lopressor (Beta Saloni)) 50 mg PO BID [facility] Last Admin: 11/19/17 09:09 Dose: 50 mg Miconazole Nitrate (Monistat 7) 1 applic VAGINAL QHS REPLACED [facility] Stop: 11/25/17 22:01 Last Admin: 11/18/17 22:56 Dose: 1 applic Nystatin (Mycostatin) 1 applic TOPICAL BID REPLACED [facility] Last Admin: 11/19/17 09:09 Dose: 1 applicatio Ondansetron HCl (Zofran) 4 mg IV Q8H PRN PRN PRN Reason: Nausea Pantoprazole Sodium (Protonix) 40 mg PO DAILY [facility] Last Admin: 11/19/17 09:11 Dose: 40 mg Sodium Chloride () 5 - 30 ml IV UD PRN PRN Reason: SALINE FLUSH Tolterodine Tartrate (Detrol La) 2 mg PO DAILY [facility] Last Admin: 11/19/17 09:08 Dose: 2 mg Zolpidem Tartrate (Ambien (Generic)) 5 mg PO QHS PRN PRN PRN Reason: INSOMNIA Last Admin: 11/18/17 23:15 Dose: 5 mg Medical Necessity - Tobacco Use Smoking Status: Never smoker Tobacco Use: Non-smoker Assessment/Plan All Active Problems Hypertensive urgency (Acute) Hyponatremia (Acute) Right hip pain (Acute) Generalized weakness (Acute) Acute kidney injury (Acute) Encephalopathy acute (Acute) Debility (Acute) Syncope (Acute) Electrolyte abnormality (Acute) Injury of left foot (Acute) 1. Syncope * suspect vasovagal due to physical exertion and dehydration * no further neurologic work up needed 2. MARII * resolved * prerenal 3. Debility: * return to SNF today. 4. Constipation: * dulcolax, colace, miralax
--- NOTE | 2017-11-19 10:49 | PCM.TXEXTCAR ---
- Diet 11/18/17 19:43 Diet: Cardiac/Low Cholesterol Food consistency:: Regular Liquid Consistency:: Regular/Thin - Routine Orders/Code Status Enema Type: Fleetz Routine Lab Work: BMP - every Tuesday Code Status: Full Code - Therapies Weight Bearing: Full weight bearing Physical Therapy: Eval and Treat Occupational Therapy: Eval and Treat - Allergies/Procedures Done in Hospital Allergies/Adverse Reactions: Allergies cortisone [Cortisone] Allergy (Verified 11/18/17 15:36) Swelling Penicillins Allergy (Verified 11/18/17 15:36) Swelling sulfamethoxazole [From Bactrim] Allergy (Verified 11/18/17 15:36) Swelling trimethoprim [From Bactrim] Allergy (Verified 11/18/17 15:36) Swelling Procedures: None - Type of Care/Length of Stay Estimated LOS: Convalescent Care Less Than 30 days Type of Care Needed: Skilled Rehab Potential: Fair Prognosis: Fair - Additional Orders/Day of Discharge Day of Discharge: 11/19/17 - Follow Up Care Primary Care Physician: Regi Aguilar MD [Primary Care Provider] - Within 2 Weeks
--- NOTE | 2017-11-19 10:53 | PCM.DC.SUM ---
Discharge Date and Diagnosis - Problem List Patient Problems: Active and Suspected Problems Syncope (Acute) MARII (acute kidney injury) (Acute) Date of Admission: 11/18/17 Date of Discharge: 11/19/17 - Primary Discharge Diagnosis Active and Suspected Problems Syncope (Acute) Electrolyte abnormality (Acute) Injury of left foot (Acute) - Secondary Discharge Diagnosis Chronic Problems HTN (hypertension) (Chronic) Anxiety (Chronic) Neuropathy (Chronic) Microcytic anemia (Chronic) History of urinary self-catheterization (Chronic) Neurogenic bladder Osteoarthritis (Chronic) History of coronary artery disease (Chronic) Grade I diastolic dysfunction (Chronic) GERD (gastroesophageal reflux disease) (Chronic) Hyperlipidemia (Chronic) Chronic pain (Chronic) Hospital Course and Treatment Imaging Results: Clinical Impression(s) from Imaging Studies Brain CT 11/18/17 16:00 IMPRESSION: Negative for new hemorrhage, hematoma or mass density. 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 Electronically Signed: Urvashi Hoffman MD at 17:15 EDT , Service support , Ankle X-Ray 11/18/17 16:03 IMPRESSION: Soft tissue injury with small cortical avulsion injury from the dorsal surface of the distal talus. No additional fracture of the ankle. Electronically Signed: Urvashi Hoffman MD at 17:07 EDT , Service support , Chest X-Ray 11/18/17 16:45 IMPRESSION: Limited inspiration without other acute cardiopulmonary findings or changes. Electronically Signed: Urvashi Hoffman MD at 17:18 EDT , Service support , Operations: None Procedures: None Summary of Care Provided: The patient is a 82 year old F had a syncopal episode while on a home visit. Patient is currently residing care home facility had a home visit and the patient was upstairs and then just felt very weak and passed out. Patient had no neurologic deficits. Patient did have some acute kidney injury with a creatinine of around 1.3 which did improve to 0.7. I feel the patient had a syncopal episode due to exertion of going up steps plus dehydration. Review the patient's medications, she does take hydrochlorothiazide, which has been discontinued. Patient is otherwise feeling well. Patient's main complaint is just constipation. Patient will be discharged back to her care home facility in stable condition. [] Discharge Diet: No Restrictions Discharge Activity: Return to Normal Activity Call your doctor if you observe: Fever of 101 or Higher, Shortness of breath, Fainting spells Home Medications: Medications to take at Discharge Calcium Carbonate/Vitamin D3 [Calcium 600-Vit D3 400 Tablet] 1 each PO DAILY 06/25/13 Glucosamine Sulfate Dipot Chlr [Glucosamine Relief] 500 mg PO DAILY 06/25/13 Pantoprazole Sodium [Protonix] 40 mg PO DAILY 06/27/13 Amlodipine [Norvasc] 10 mg PO DAILY 10/07/17 Aspirin 325 mg PO DAILY@0800 10/07/17 Gabapentin [Neurontin] 300 mg PO BIDCM 10/07/17 Gabapentin [Neurontin] 400 mg PO QHS 10/07/17 Lisinopril [Zestril] 10 mg PO BID 10/07/17 Metoprolol Tartrate [Lopressor (beta kirby)] 50 mg PO BID 10/07/17 Acetaminophen [Tylenol] 650 mg PO Q4H PRN 11/18/17 Escitalopram Oxalate [Lexapro] 10 mg PO DAILY 11/18/17 Nitroglycerin [Nitrostat] 0.4 mg SUBLINGUAL Q5M PRN 11/18/17 Nystatin 1 applicatio TP BID 11/18/17 Oxybutynin Chloride [Ditropan Xl] 10 mg PO DAILY 11/18/17 Psyllium Husk (with Sugar) [Metamucil Packet] 3.4 gm PO DAILY PRN 11/18/17 Senna [Senokot] 2 tablet PO DAILY 11/18/17 Bisacodyl [Dulcolax] 10 mg PO DAILY PRN PRN tablet 11/19/17 Primary Care Physician: Regi Aguilar MD [Primary Care Provider] - Within 2 Weeks Disposition: [facility] facility Minutes spent on discharge:: 28 Patient Condition:: Fair Medical Necessity - Tobacco Use Smoking Status: Never smoker Tobacco Use: Non-smoker Meaningful Use Info Meaningful Use Diagnoses (Choose all that apply): None applicable Code Visit OBSV E&M: 07431 Observation care discharge
[2017-11-19] MEDS: Polyethylene Glycol 3350 17 GM PACKET PO (12:09)
[2017-11-19] MEDS: Acetaminophen 325 MG Tablet 650 MG PO ×2 (14:52→21:06)
[2017-11-19] MEDS: FLUCONAZOLE 150 MG TABLET PO (15:15)
[2017-11-19] MEDS: 0.9% NaCl Peripheral Flush Adult/Peds IV (18:19)
--- NOTE | 2017-11-19 18:24 | RAD_ITS ---
STUDY: X-RAY - ABDOMEN/PELVIS REASON FOR EXAM: Female, 82 years old. Extreme vaginal pain. TECHNIQUE: Single AP view of the abdomen / pelvis. COMPARISON: None. FINDINGS: Normal visualized lung bases. There is an unremarkable bowel gas pattern with air seen to the level of the rectosigmoid. There is no demonstrated free abdominal air. The visualized liver, spleen and kidneys are grossly normal in size and morphology. There are phleboliths, injection granulomas and vascular calcifications. Normal visualized osseous structures. RAD/Abdomen Single View (Portable) IMPRESSION: No acute pathology of the abdomen or pelvis. Electronically Signed: Mina Jonhson MD at 20:07 EDT , Service support ,
--- NOTE | 2017-11-19 18:57 | NURSING ---
Patient refusing to go down for x-ray. RN called radiology for a bedside image to be obtained.
[2017-11-19] MEDS: Zolpidem Tartrate 5 MG Tablet PO (21:07)
[2017-11-19] MEDS: Gabapentin 400 MG Capsule PO (21:07)
[2017-11-20] VITALS (12 sets, daily range): BP systolic 161–173; BP diastolic 67–79; PULSE 53–79; RESP 16–20; TEMP 36.6–37.1; O2SAT 96–100
[2017-11-20] MEDS: Gabapentin 300 MG Capsule PO ×2 (08:57→18:13)
[2017-11-20] MEDS: Aspirin 325 MG Tablet PO (08:57)
[2017-11-20] MEDS: Escitalopram Oxalate 10 MG Tablet PO (10:24)
[2017-11-20] MEDS: Heparin Injection (Vial) 5,000 UNIT/ML VIAL 5000 UNIT SC ×2 (10:25→22:36)
[2017-11-20] MEDS: Tolterodine Tartrate 2 MG CAP.SA PO (10:25)
[2017-11-20] MEDS: amLODIPine 10 MG Tablet PO (10:25)
[2017-11-20] MEDS: Pantoprazole Sodium 40 MG Tablet PO (10:26)
[2017-11-20] MEDS: Calcium Carb/Vitamin D 1 TABLET Tablet PO (10:26)
[2017-11-20] MEDS: Nystatin Ointment 1 APPLIC TOPICAL (10:27)
[2017-11-20] MEDS: Metoprolol Tartrate 50 MG Tablet PO ×2 (10:28→22:35)
--- NOTE | 2017-11-20 10:55 | CT_ITS ---
STUDY: CT ABDOMEN AND PELVIS WITH CONTRAST REASON FOR EXAM: Female, 82 years old. Vaginal pain. Neurogenic bladder. Previous appendectomy, BJORN, cholecystectomy and CABG. RADIATION DOSAGE (If Supplied By Facility): CTDIvol = ( 20.86 ) mGy, DLP = ( 1840.30 ) mGycm TECHNIQUE: Transaxial images were obtained from the dome of the diaphragm to the symphysis pubis with oral contrast. 100ML ml of Isovue 300 contrast was administered. Sagittal and coronal images were reconstructed. Individualized dose optimization techniques were used for this CT. COMPARISON: 09/21/2015. FINDINGS: Subsegmental atelectasis in the bibasilar region. The visualized portions of the heart are within normal limits. Normal liver. Postsurgical absence of the gallbladder. Normal spleen. Normal pancreas. 10 mm solid nodule in the left adrenal gland. Normal right adrenal gland. Normal right kidney. Normal left kidney. Prominent hiatal hernia. Normal small intestine. Diverticula along the sigmoid colon and descending colon. No diverticulitis. Postsurgical absence of the appendix. Atherosclerotic calcifications along the infrarenal abdominal aorta and down the iliac arteries. Normal inferior vena cava. Normal retroperitoneum. Normal urinary bladder. Normal uterus. No free fluid in the cul-de-sac. Subcutaneous air bubbles in the left lower anterior abdominal wall. Minimal degenerative retrolisthesis of L1 on L2 and L2 on L3. Minimal degenerative anterolisthesis of L4 on L5. Escape of due to vacuum phenomena in the posterior aspect of the L4-L5 disc space due to posterior annular tear. Mild disc space height narrowing with degenerative vacuum phenomena. Pronounced L5-S1 disc space height narrowing with degenerative vacuum phenomenon. Moderately pronounced asymmetric degenerative facet arthropathy of the L5-S1 facet joints. Moderate asymmetric L4-L5 degenerative facet arthropathy. CT/Abdomen/Pelvis WITH Contrast IMPRESSION: 1. Colonic diverticulosis along the sigmoid colon and descending colon without diverticulitis. This is unchanged. 2. Prominent hiatal hernia. This is unchanged. 3. 10 mm solid nodule in the left adrenal gland. This is unchanged. 4. L4-L5 posterior annular tear due to escape of vacuum phenomenon in the anterior extradural space. This is a new finding. 5. Moderate asymmetric L4-L5 degenerative facet arthropathy are unchanged. 6. Moderately pronounced L5-S1 degenerative facet arthropathy with pronounced L5-S1 disc space height narrowing is unchanged. 7. Subcutaneous air bubbles in the right anterior lower abdominal wall are new. Electronically Signed: Feng Allen MD at 14:38 EDT , Service support ,
--- NOTE | 2017-11-20 12:17 | PCM.PN.HOSP ---
Patient Problems: Active and Suspected Problems MARII (acute kidney injury) (Acute) Syncope (Acute) Subjective: Patient unable to be discharged yesterday as she had to have precertification the discharge was canceled. Afterwards, patient started complaining of vaginal pain. Patient tried having a bowel movement she is previously expressing constipation but patient did have bowel but still continued to have what she describes as vaginal pain that appears to be more vulvar pain. Denies any vaginal discharge. Patient is requiring straight catheterizations chronically but no new issues pertaining to that that she is aware of. Vitals/I&O's: Vital Signs Temp Pulse Resp BP Pulse Ox 36.8 C 79 20 H 165/76 H 100 11/20/17 10:25 11/20/17 10:28 11/20/17 10:25 11/20/17 10:28 11/20/17 10:25 Oxygen Delivery Method Room Air Weight: 94.1 kg Body Mass Index (BMI) 35.6 Intake and Output for Last 24 Hours 11/18/17 11/19/17 11/20/17 23:59 23:59 23:59 Intake Total 2693 / 2693 840 / 840 Output Total 2300 / 2300 875 / 875 Balance 393 / 393 -35 / -35 General: Alert, No apparent distress HEENT: Atraumatic, Normocephalic Oral: Moist Mucosa, No Gingival or Mucosal Lesions/ Ulcerations Neck: No Nodes, Thyroid Normal Size and Texture Lungs: Clear to auscultation, Normal air movement, No rhonchi, No wheeze Cardiovascular: Regular rate, Regular Rhythm, Normal S1, Normal S2, No murmurs Abdomen: Bowel Sounds Present, Soft, Non Tender, Non-Distended, - - Vaginal exam was performed with patient's permission as well female nurse present. Externally there is no rating discharge. No candidiasis was noted. Extremities: No edema, No Calf Tenderness Skin: No rashes, No breakdown Psych/Mental Status: Normal Affect, Appropriate Current Medications Acetaminophen (Tylenol) 650 mg PO Q6H PRN PRN PRN Reason: PAIN Last Admin: 11/19/17 21:06 Dose: 650 mg Amlodipine Besylate (Norvasc) 10 mg PO DAILY [facility] Last Admin: 11/20/17 10:25 Dose: 10 mg Aspirin (Aspirin) 325 mg PO DAILY@0800 [facility] Last Admin: 11/20/17 08:57 Dose: 325 mg Bisacodyl (Dulcolax) 10 mg PO DAILY PRN PRN PRN Reason: Constipation Calcium/Vitamin D (Os-Shine 500mg + D) 1 tablet PO DAILY [facility] Last Admin: 11/20/17 10:26 Dose: 1 tablet Docusate Sodium (Colace) 200 mg PO BID PRN PRN PRN Reason: Constipation Escitalopram Oxalate (Lexapro) 10 mg PO DAILY [facility] Last Admin: 11/20/17 10:24 Dose: 10 mg Gabapentin (Neurontin) [facility] Last Admin: 11/20/17 08:57 Dose: 300 mg Gabapentin (Neurontin) 400 mg PO QHS [facility] Last Admin: 11/19/17 21:07 Dose: 400 mg Heparin Sodium (Porcine) (Heparin Na) 5,000 unit SC Q12 [facility] Last Admin: 11/20/17 10:25 Dose: 5,000 u Magnesium Hydroxide (Milk Of Magnesia) 30 ml PO DAILY PRN PRN Reason: Constipation Last Admin: 11/19/17 09:13 Dose: 30 ml Metoprolol Tartrate (Lopressor (Beta Saloni)) 50 mg PO BID [facility] Last Admin: 11/20/17 10:28 Dose: 50 mg Nystatin (Mycostatin) 1 applic TOPICAL BID [facility] Last Admin: 11/20/17 10:27 Dose: 1 applicatio Ondansetron HCl (Zofran) 4 mg IV Q8H PRN PRN PRN Reason: Nausea Pantoprazole Sodium (Protonix) 40 mg PO DAILY [facility] Last Admin: 11/20/17 10:26 Dose: 40 mg Sodium Chloride () 5 - 30 ml IV UD PRN PRN Reason: SALINE FLUSH Last Admin: 11/19/17 18:19 Dose: 10 ml Tolterodine Tartrate (Detrol La) 2 mg PO DAILY [facility] Last Admin: 11/20/17 10:25 Dose: 2 mg Zolpidem Tartrate (Ambien (Generic)) 5 mg PO QHS PRN PRN PRN Reason: INSOMNIA Last Admin: 11/19/17 21:07 Dose: 5 mg Medical Necessity - Tobacco Use Smoking Status: Never smoker Tobacco Use: Non-smoker Assessment/Plan All Active Problems MARII (acute kidney injury) (Acute) Hypertensive urgency (Acute) Hyponatremia (Acute) Right hip pain (Acute) Generalized weakness (Acute) Acute kidney injury (Acute) Encephalopathy acute (Acute) Debility (Acute) Syncope (Acute) Electrolyte abnormality (Acute) Injury of left foot (Acute) 1. Syncope suspect vasovagal due to physical exertion and dehydration no further neurologic work up needed 2. MARII resolved prerenal 3. Pelvic pain Unable to reproduce any kind of pain externally. We will check a CT of her abdomen pelvis says previous abdominal x-ray was unremarkable Patient does have Klebsiella in her urine culture but the urinalysis was unremarkable. I will empirically treat her for urinary tract infection with Levaquin. 4. Constipation: Resolved Dulcolax, colace, miralax 5. Debility In the patient was on a home visit from the [facility] facility when this event happened patient requires precertification before she can return. The hope is, depending on the issues in regards to her pelvic pain, and that she could return the next 24-48 hours. 6. DVT prophylaxis with heparin Code Visit Inpatient E&M: 59990 Subs Hosp L2
--- NOTE | 2017-11-20 12:21 | PN_ITS ---
Patient Problems: Active and Suspected Problems MARII (acute kidney injury) (Acute) Syncope (Acute) Subjective: Patient unable to be discharged yesterday as she had to have precertification the discharge was canceled. Afterwards, patient started complaining of vaginal pain. Patient tried having a bowel movement she is previously expressing constipation but patient did have bowel but still continued to have what she describes as vaginal pain that appears to be more vulvar pain. Denies any vaginal discharge. Patient is requiring straight catheterizations chronically but no new issues pertaining to that that she is aware of. Vitals/I&O's: Vital Signs Temp Pulse Resp BP Pulse Ox 36.8 C 79 20 H 165/76 H 100 11/20/17 10:25 11/20/17 10:28 11/20/17 10:25 11/20/17 10:28 11/20/17 10:25 Oxygen Delivery Method Room Air Weight: 94.1 kg Body Mass Index (BMI) 35.6 Intake and Output for Last 24 Hours 11/18/17 11/19/17 11/20/17 23:59 23:59 23:59 Intake Total 2693 / 2693 840 / 840 Output Total 2300 / 2300 875 / 875 Balance 393 / 393 -35 / -35 General: Alert, No apparent distress HEENT: Atraumatic, Normocephalic Oral: Moist Mucosa, No Gingival or Mucosal Lesions/ Ulcerations Neck: No Nodes, Thyroid Normal Size and Texture Lungs: Clear to auscultation, Normal air movement, No rhonchi, No wheeze Cardiovascular: Regular rate, Regular Rhythm, Normal S1, Normal S2, No murmurs Abdomen: Bowel Sounds Present, Soft, Non Tender, Non-Distended, - - Vaginal exam was performed with patient's permission as well female nurse present. Externally there is no rating discharge. No candidiasis was noted. Extremities: No edema, No Calf Tenderness Skin: No rashes, No breakdown Psych/Mental Status: Normal Affect, Appropriate Current Medications Acetaminophen (Tylenol) 650 mg PO Q6H PRN PRN PRN Reason: PAIN Last Admin: 11/19/17 21:06 Dose: 650 mg Amlodipine Besylate (Norvasc) 10 mg PO DAILY [facility] Last Admin: 11/20/17 10:25 Dose: 10 mg Aspirin (Aspirin) 325 mg PO DAILY@0800 [facility] Last Admin: 11/20/17 08:57 Dose: 325 mg Bisacodyl (Dulcolax) 10 mg PO DAILY PRN PRN PRN Reason: Constipation Calcium/Vitamin D (Os-Shine 500mg + D) 1 tablet PO DAILY [facility] Last Admin: 11/20/17 10:26 Dose: 1 tablet Docusate Sodium (Colace) 200 mg PO BID PRN PRN PRN Reason: Constipation Escitalopram Oxalate (Lexapro) 10 mg PO DAILY [facility] Last Admin: 11/20/17 10:24 Dose: 10 mg [facility]) [facility] Last Admin: 11/20/17 08:57 Dose: 300 mg Gabapentin (Neurontin) 400 mg PO QHS [facility] Last Admin: 11/19/17 21:07 Dose: 400 mg Heparin Sodium (Porcine) (Heparin Na) 5,000 unit SC Q12 [facility] Last Admin: 11/20/17 10:25 Dose: 5,000 u Magnesium Hydroxide (Milk Of Magnesia) 30 ml PO DAILY PRN PRN Reason: Constipation Last Admin: 11/19/17 09:13 Dose: 30 ml Metoprolol Tartrate (Lopressor (Beta Saloni)) 50 mg PO BID [facility] Last Admin: 11/20/17 10:28 Dose: 50 mg Nystatin (Mycostatin) 1 applic TOPICAL BID [facility] Last Admin: 11/20/17 10:27 Dose: 1 applicatio Ondansetron HCl (Zofran) 4 mg IV Q8H PRN PRN PRN Reason: Nausea Pantoprazole Sodium (Protonix) 40 mg PO DAILY [facility] Last Admin: 11/20/17 10:26 Dose: 40 mg Sodium Chloride () 5 - 30 ml IV UD PRN PRN Reason: SALINE FLUSH Last Admin: 11/19/17 18:19 Dose: 10 ml Tolterodine Tartrate (Detrol La) 2 mg PO DAILY [facility] Last Admin: 11/20/17 10:25 Dose: 2 mg Zolpidem Tartrate (Ambien (Generic)) 5 mg PO QHS PRN PRN PRN Reason: INSOMNIA Last Admin: 11/19/17 21:07 Dose: 5 mg Medical Necessity - Tobacco Use Smoking Status: Never smoker Tobacco Use: Non-smoker Assessment/Plan All Active Problems MARII (acute kidney injury) (Acute) Hypertensive urgency (Acute) Hyponatremia (Acute) Right hip pain (Acute) Generalized weakness (Acute) Acute kidney injury (Acute) Encephalopathy acute (Acute) Debility (Acute) Syncope (Acute) Electrolyte abnormality (Acute) Injury of left foot (Acute) 1. Syncope * suspect vasovagal due to physical exertion and dehydration * no further neurologic work up needed 2. MARII * resolved * prerenal 3. Pelvic pain * Unable to reproduce any kind of pain externally. We will check a CT of her abdomen pelvis says previous abdominal x-ray was unremarkable * Patient does have Klebsiella in her urine culture but the urinalysis was unremarkable. I will empirically treat her for urinary tract infection with Levaquin. 4. Constipation: * Resolved * Dulcolax, colace, miralax 5. Debility * In the patient [facility] event happened patient requires precertification before she can return. The hope is, depending on the issues in regards to her pelvic pain, and that she could return the next 24-48 hours. 6. DVT prophylaxis with heparin Code Visit Inpatient E&M: 75483 Subs Hosp L2
[2017-11-20] MEDS: Acetaminophen 325 MG Tablet 650 MG PO (14:39)
[2017-11-20] MEDS: oxyCODONE 5 MG Tablet PO ×2 (19:09→23:15)
--- NOTE | 2017-11-20 19:30 | EKG12_ITS ---
Test Reason : CP Blood Pressure : / mmHG Vent. Rate : 067 BPM Atrial Rate : 067 BPM P-R Int : 152 ms QRS Dur : 104 ms QT Int : 432 ms P-R-T Axes : 045 005 165 degrees QTc Int : 456 ms Normal sinus rhythm ST & T wave abnormality, consider inferior ischemia ST & T wave abnormality, consider anterolateral ischemia Abnormal ECG Confirmed by JUDE HDZ, NAHID ([id number]), acquisition editor JOCE KERN ([id number]) on 11/22/2017 3:03:34 PM Referred By: KARLOS Confirmed By:NAHID ROQUE MD
--- NOTE | 2017-11-20 19:35 | NURSING ---
RN WALKED IN ROOM PATIENT EXTREMELY ANXIOUS STATING SHE HAS TO POOP, THEN COMPLAINS OF HER CHEST HURTING, CALLED AND ORDERED EKG. NO CHANGES NOTED.
--- NOTE | 2017-11-20 20:45 | NURSING ---
PATIENT RESTING WITH EYES CLOSED, RN WOKE UP TO CHECK ON CHEST PAIN, STATES IT IS COMPLETELY GONE. DR DEL RIO NOTIFIED OF EKG AND CHEST PAIN, PATIENT ON NON-TELE. NO NEW ORDERS, CONTINUE SAME TREATMENT.
[2017-11-20] MEDS: Gabapentin 400 MG Capsule PO (22:35)
[2017-11-21] VITALS (7 sets, daily range): BP systolic 139–168; BP diastolic 59–74; PULSE 54–76; RESP 16–18; TEMP 36.4–37; O2SAT 95–100
--- NOTE | 2017-11-21 02:15 | NURSING ---
PATIENT CALLED OUT STATES WANTS TO BE STRAIGHT CATH-BLADDER SCANNED FOR 50CC TOLD PATIENT NEEDS TO WAIT. VERBALIZED UNDERSTANDING.
--- NOTE | 2017-11-21 04:25 | NURSING ---
PATIENT REFUSING TO DO ORTHO BP AT THIS TIME, STATES SHE IS COMFORTABLE AND NOT GETTING UP.
[2017-11-21] MEDS: levoFLOXacin 500 MG Tablet PO (05:30)
--- NOTE | 2017-11-21 06:25 | NURSING ---
PATIENT REFUSED TO HAVE STRAIGHT CATH STATES SHE DOESN'T NEED IT AT THIS TIME.
[2017-11-21] MEDS: Heparin Injection (Vial) 5,000 UNIT/ML VIAL 5000 UNIT SC ×2 (08:32→22:27)
[2017-11-21] MEDS: Calcium Carb/Vitamin D 1 TABLET Tablet PO (08:32)
[2017-11-21] MEDS: Gabapentin 300 MG Capsule PO ×2 (08:32→15:13)
[2017-11-21] MEDS: Escitalopram Oxalate 10 MG Tablet PO (08:33)
[2017-11-21] MEDS: Pantoprazole Sodium 40 MG Tablet PO (08:33)
[2017-11-21] MEDS: Aspirin 325 MG Tablet PO (08:33)
[2017-11-21] MEDS: Tolterodine Tartrate 2 MG CAP.SA PO (08:33)
[2017-11-21] MEDS: Metoprolol Tartrate 50 MG Tablet PO ×2 (08:34→22:27)
[2017-11-21] MEDS: amLODIPine 10 MG Tablet PO (08:34)
[2017-11-21] MEDS: Nystatin Ointment 1 APPLIC TOPICAL ×2 (08:34→22:26)
--- NOTE | 2017-11-21 08:59 | CASEMGMT ---
REZA called Elif at [facility] and asked her to start pre-cert. REZA faxed clinicals to [facility]. Plan: return to [facility] pending pre-cert Sneha REY
[2017-11-21] MEDS: oxyCODONE 5 MG Tablet PO ×3 (12:55→22:30)
--- NOTE | 2017-11-21 14:03 | CHAPLAIN ---
Type of Pastoral Visit _x__ Initial Visit ___ Follow-up Visit ___ On-call Visit ___ General Patient Visit ___ Spiritual Assessment ___ Family Conference ___ Bereavement ___ Rapid Response ___ Code Blue ___ Other (describe below) Pastoral Care Referral From _x__ Patient ___ Family ___ Nurse ___ Physician ___ Middle School Art Teacher ___ Pile Header ___ Other (describe below) Sacrament/Intervention _x__ Active listening ___ Anointing ___ Quaker ___ Bereavement ___ Communion ___ [place] exploration ___ ___ Life review _x__ Prayer ___ Reconciliation ___ Sacrament of Sick _x__ Supportive presence ___ Wedding ___ Other (describe below) Pastoral Comments patient requested prayer as priority
--- NOTE | 2017-11-21 14:43 | CASEMGMT ---
Addendum entered by Sneha Vance 11/21/17 16:19: Received call from [facility] and patient was denied to return to [facility]. SW will have to talk with family about alternative plan. Sneha REY Original Note: Per [facility] patient's case for pre-cert was sent to medical review. Sneha SHARMA MSW
[2017-11-21] MEDS: Acetaminophen 325 MG Tablet 650 MG PO (15:13)
--- NOTE | 2017-11-21 19:39 | PCM.PROGNOTE ---
Subjective: The patient is an 86-year-old female well known to me from a recent admission. She has a past medical history of dementia, hypertension, anxiety, urine retention requiring catheterization, osteoarthritis, coronary artery disease, diastolic dysfunction grade 1, GERD, hyperlipidemia and chronic pain. She currently resides at a long term but was given a pass to go home for the day and had a syncopal episode. Creatinine at admission was elevated at 1.33 and is currently 0.77 which is more in line with her baseline. Sodium was low at admission and she does take Lasix. Her biggest complaint today is vaginal pain. This is not a new complaint and previously when she lived alone she was using coconut oil in her vagina. denies dysuria. At her last admission she was taking pain medication and was unresponsive or obtunded for 3 days before it wore off. - Physical Exam General: Alert, No apparent distress, Well developed, Well nourished Oral: Moist Mucosa Neck: Trachea Midline Lungs: Clear to auscultation, No rhonchi, No wheeze, No rales Cardiovascular: Regular rate, Regular Rhythm, Normal S1, Normal S2, No Gallop Abdomen: Bowel Sounds Present, Soft, Non Tender, Non-Distended, Obese, - - Vaginal exam performed by Dr. Mott was unremarkable Extremities: No edema, No Calf Tenderness Skin: No rashes, No breakdown Vital Signs Temp Pulse Resp BP Pulse Ox 97.5 F L 62 18 168/69 H 100 11/21/17 14:20 11/21/17 14:20 11/21/17 14:20 11/21/17 14:20 11/21/17 14:20 Oxygen Delivery Method Room Air Weight: 207 lb 7.28 oz Body Mass Index (BMI) 35.6 Intake and Output for Last 24 Hours 11/19/17 11/20/17 11/21/17 23:59 23:59 23:59 Intake Total 2693 / 2693 1260 / 1260 50 / 50 Output Total 2300 / 2300 3075 / 3075 400 / 400 Balance 393 / 393 -1815 / -1815 -350 / -350 Medical Necessity - Tobacco Use Smoking Status: Never smoker Tobacco Use: Non-smoker Assessment/Plan All Active Problems Dehydration (Acute) MARII (acute kidney injury) (Acute) Hyponatremia (Acute) Syncope (Acute) Electrolyte abnormality (Acute) Encephalopathy acute (Resolved) Hypertensive urgency (Resolved) Impressions 1. syncope - likely secondary to dehydration/orthostasis 2. MARII - resolved 3. vaginal pain - suspect she may have atrophic vaginitis 4. dementia 5. Chronic debility 6. hyponatremia - due to dehydration 7. hyperkalemia - resolved Start Estrogen vaginal cream daily for 1 week and then twice a wekk thereafter Awaiting pre-cert for patient to go back to SNF Continue with PT and OT Code Visit Inpatient E&M: 55506 Subs Hosp L2
[2017-11-21] MEDS: Lisinopril 10 MG Tablet PO (22:27)
[2017-11-21] MEDS: Gabapentin 400 MG Capsule PO (22:27)
[2017-11-21] MEDS: Zolpidem Tartrate 5 MG Tablet PO (22:31)
[2017-11-22] VITALS (7 sets, daily range): BP systolic 134–149; BP diastolic 58–76; PULSE 55–62; RESP 16–17; TEMP 36.6–37.1; O2SAT 95–99
[2017-11-22] MEDS: levoFLOXacin 250 MG Tablet PO (06:36)
[2017-11-22] MEDS: Metoprolol Tartrate 50 MG Tablet PO ×2 (10:48→23:32)
[2017-11-22] MEDS: Calcium Carb/Vitamin D 1 TABLET Tablet PO (10:48)
[2017-11-22] MEDS: Pantoprazole Sodium 40 MG Tablet PO (10:48)
[2017-11-22] MEDS: Lisinopril 10 MG Tablet PO ×2 (10:48→23:32)
[2017-11-22] MEDS: Nystatin Ointment 1 APPLIC TOPICAL ×2 (10:49→23:32)
[2017-11-22] MEDS: Heparin Injection (Vial) 5,000 UNIT/ML VIAL 5000 UNIT SC ×2 (10:49→23:32)
[2017-11-22] MEDS: Aspirin 325 MG Tablet PO (10:49)
[2017-11-22] MEDS: Gabapentin 300 MG Capsule PO ×2 (10:49→17:19)
[2017-11-22] MEDS: amLODIPine 10 MG Tablet PO (10:49)
[2017-11-22] MEDS: Tolterodine Tartrate 2 MG CAP.SA PO (10:49)
[2017-11-22] MEDS: Escitalopram Oxalate 10 MG Tablet PO (10:49)
[2017-11-22] MEDS: Estrogens,Conj. 1 Tube 1 DOSE VAGINAL (12:43)
--- NOTE | 2017-11-22 12:45 | CASEMGMT ---
Social Work Met with pt in room and explained that insurance has denied coverage at SNF. Pt states she does not feel she can return home as she is not safe to be alone. SW explained that she will need to private pay at a nursing facility if she wants to go there. Pt is agreeable. SW inquired where she would like to go and pt is unable to answer. SW inquired about ability to pay privately and pt states she has no savings and receives a check monthly for about $1100. Pt is agreeable for SW to call [facility] to assist with d/c planning. Phone call placed x2 to juan and waiting return call. PARRISH Stewart
--- NOTE | 2017-11-22 17:02 | CASEMGMT ---
Social Work Met with niece and d/c plan discussed. Informed niece that insurance has denied authorization. Niece confirms pt cannot return home alone and needs oil heaterman placement. SW explained pt will be private pay. Niece disclosed pt financial situation and pt does not have resources to pay one month up from which is required by SNFS. Assisted pt and niece in completing medicaid application. At this time JFS is closed, will fax katarzyna in the morning. Pt deferred SNF decision making to niece Patricia who states she does not care where pt goes as long as she is in [place] or [place] for family to visit. Patricia does work at [employer] and does not feel it would be good for pt to be at this facility. REZA will followup for pending medicaid number and to find facility. PARRISH Stewart
--- NOTE | 2017-11-22 21:30 | PCM.PROGNOTE ---
Subjective: Insurance denied SNF, likely due to patient's dementia and having reached her maximum potential for rehabilitation. Family is agreement that she needs placement and is unable to care for herself. SW attempting to find an ECF for Placement. States that the vaginal pain is somewhat improved today - Physical Exam General: Alert, Cooperative Oral: Moist Mucosa, No Gingival or Mucosal Lesions/ Ulcerations Neck: Supple, No Nodes, Trachea Midline Lungs: Clear to auscultation Cardiovascular: Regular rate, Regular Rhythm, Normal S1, Normal S2, No Gallop Abdomen: Bowel Sounds Present, Soft, Non Tender, Obese, - - No guarding with palpation Extremities: No edema, No Calf Tenderness Skin: No rashes, No breakdown Vital Signs Temp Pulse Resp BP Pulse Ox 98.6 F 55 L 16 147/59 H 96 11/22/17 17:15 11/22/17 17:15 11/22/17 17:15 11/22/17 17:15 11/22/17 17:15 Oxygen Delivery Method Room Air Weight: 207 lb 7.28 oz Body Mass Index (BMI) 35.6 Intake and Output for Last 24 Hours 11/20/17 11/21/17 11/22/17 23:59 23:59 23:59 Intake Total 1260 / 1260 50 / 50 670 / 670 Output Total 3075 / 3075 600 / 600 1385 / 1385 Balance -1815 / -1815 -550 / -550 -715 / -715 Medical Necessity - Tobacco Use Smoking Status: Never smoker Tobacco Use: Non-smoker Assessment/Plan All Active Problems Dehydration (Acute) MARII (acute kidney injury) (Acute) Hyponatremia (Acute) Syncope (Acute) Electrolyte abnormality (Acute) Encephalopathy acute (Resolved) Hypertensive urgency (Resolved) Impressions 1. syncope - likely secondary to dehydration/orthostasis 2. MARII - resolved 3. vaginal pain - suspect she may have atrophic vaginitis 4. dementia 5. Chronic debility 6. hyponatremia - due to dehydration 7. hyperkalemia - resolved Continue the vaginal cream Awaiting a suitable ECF for rn long term care placement Continue PT/OT Code Visit Inpatient E&M: 45015 [facility] Hosp L1
[2017-11-22] MEDS: oxyCODONE 5 MG Tablet PO (23:32)
[2017-11-22] MEDS: Zolpidem Tartrate 5 MG Tablet PO (23:33)
[2017-11-22] MEDS: Gabapentin 400 MG Capsule PO (23:33)
[2017-11-23 05:15] VITALS: BP 126/64; PULSE 67; RESP 16; TEMP 37; O2SAT 96
--- NOTE | 2017-11-23 09:13 | CASEMGMT ---
REZA faxed Medicaid application to [facility] [employer]. REZA called [facility] and requested they come and see patient for her Anxiety. SW to continue to work on placement for patient. Plan: residential placement at a nursing facility Sneha SHARMA MSW
[2017-11-23 09:40] VITALS: BP 139/67; PULSE 58; RESP 16; TEMP 36.9; O2SAT 98
[2017-11-23] MEDS: Nystatin Ointment 1 APPLIC TOPICAL (09:43)
[2017-11-23] MEDS: Estrogens,Conj. 1 Tube 1 DOSE VAGINAL (09:43)
[2017-11-23 09:44] VITALS: BP 139/67; PULSE 58
[2017-11-23] MEDS: Escitalopram Oxalate 10 MG Tablet PO (09:44)
[2017-11-23] MEDS: Metoprolol Tartrate 50 MG Tablet PO (09:44)
[2017-11-23] MEDS: Aspirin 325 MG Tablet PO (09:44)
[2017-11-23] MEDS: Lisinopril 10 MG Tablet PO (09:44)
[2017-11-23] MEDS: amLODIPine 10 MG Tablet PO (09:44)
[2017-11-23] MEDS: Pantoprazole Sodium 40 MG Tablet PO (09:44)
[2017-11-23] MEDS: Senna Tablet 2 TABLET PO (09:44)
[2017-11-23] MEDS: Gabapentin 300 MG Capsule PO ×2 (09:44→16:07)
[2017-11-23] MEDS: Tolterodine Tartrate 2 MG CAP.SA PO (09:44)
[2017-11-23] MEDS: Calcium Carb/Vitamin D 1 TABLET Tablet PO (09:44)
[2017-11-23] MEDS: Heparin Injection (Vial) 5,000 UNIT/ML VIAL 5000 UNIT SC (09:44)
--- NOTE | 2017-11-23 11:08 | CASEMGMT ---
Addendum entered by Sneha Vance 11/23/17 12:02: REZA faxed all necessary information to [facility] to obtain level of care. Once this is obtained patient can be discharged to [facility]. Sneha REY Original Note: Addendum entered by Sneha Vnace 11/23/17 11:35: REZA called patient's niece, Ana and left her a voice mail letting her know [facility] has accepted patient. REZA also briefly told her about patient will likely be over the Medicaid amount and would have to open a Qualified Income Trust at a [employer] for the extra amount. Sneha REY Original Note: REZA called [facility] with referral and faxed information. Spoke with Qian and they will accept patient. REZA told her SW will work on obtaining level of care from [facility] once pending Medicaid number is received. REZA called Lynnette at [employer] and gave her the accepting facility and her pending number is [phone]. Once REZA receives med list from physician REZA will fax in request for level of care. Plan: [facility] under intermediate level of care pending receipt of level of care. Sneha REY
[2017-11-23 14:35] VITALS: BP 127/68; PULSE 55; RESP 16; TEMP 37.1; O2SAT 99
--- NOTE | 2017-11-23 14:50 | CASEMGMT ---
Received level of care from [facility]. Called Qian at [facility] and they can take patient today. SW notified physician. REZA spoke with patient's niece, Ivelisse and she is okay with this plan. REZA told her she will need to work with [employer] on getting them the documents they will need to complete the application. REZA will call her when SW has a time for meat pickler. Await orders for d/c. Plan; d/c to [facility] under intermediate level of care on pending Medicaid # [id number]. Sneha SHARMA CLIENT BUSINESS MANAGER
--- NOTE | 2017-11-23 15:29 | BH.NOTE ---
BH: Inpatient Note - Notes Behavioral Health Inpatient Note: 11/23/17 15:29 Referral to [facility] from [facility] REZA and Dr. Auguste due to anxiety related to medical issues. Per chart hx of dementia. Met with pt alone in her room. Cooperative. Alert and oriented x3. Limited insight into her anxiety. Presents as tired and gives short answers to questions. Pt reports anxiety and fear related to walking stating I'm afraid I'm going to fall if I walk ... I'm afraid I'll fall if I get up. Reports decrease in quality of life. Reports recent syncope related to anxiety of being outside of the [place]. Reports some increased confidence in using a walker and walking while in rehab at [place]. Ruminating thoughts and fears related to falling which are hindering confidence and motivation to use walker. Endorses depressive symptoms related to poor quality of life. Denies any suicidal ideations, plan, or intent. Due to current physical and cognitive limitations she would be best served to receive a geriatric psychiatric evaluation upon placement in [place]. Spoke with [facility] REZA who is going to call [facility] to discuss this possibility.
--- NOTE | 2017-11-23 15:45 | NURSING ---
Called report to [facility] at this time. Spoke to RAMIREZ Church.
--- NOTE | 2017-11-23 15:59 | CASEMGMT ---
REZA spoke with Qian at [facility] letting her know patient will be coming today, but we are waiting on the orders. REZA also asked if they would be able to have a Psychologist see her while she is there and they can do this. Plan: d/c to [facility] under intermediate level of care Sneha SHARMA MSW
--- NOTE | 2017-11-23 17:07 | PCM.TXEXTCAR ---
- Diet 11/18/17 19:43 Diet: Cardiac/Low Cholesterol Food consistency:: Regular Liquid Consistency:: Regular/Thin - Routine Orders/Code Status Enema Type: Fleetz Enema Frequency: Daily PRN Suppository Type: Dulcolax 10mg Suppository Frequency: Daily PRN O2 Liters per Minute: 2 O2 Frequency: Continuous Keep PO Greater than or Equal to (%): 89 Routine Lab Work: BMP - every Tuesday for 1 month Code Status: Full Code - Therapies Weight Bearing: Full weight bearing Physical Therapy: Eval and Treat Occupational Therapy: Eval and Treat - Problem/Diagnosis (1) MARII (acute kidney injury) Status: Acute Current Visit: No (2) HTN (hypertension) Status: Chronic Current Visit: No (3) Anxiety Status: Chronic Current Visit: No (4) Neuropathy Status: Chronic Current Visit: No (5) Hypertensive urgency Status: Resolved Current Visit: No (6) Hyponatremia Status: Acute Current Visit: No (7) Microcytic anemia Status: Chronic Current Visit: No (8) History of urinary self-catheterization Status: Chronic Comment: Neurogenic bladder Current Visit: No (9) Osteoarthritis Status: Chronic Current Visit: No (10) History of coronary artery disease Status: Chronic Current Visit: No (11) Grade I diastolic dysfunction Status: Chronic Current Visit: No (12) Right hip pain Status: Chronic Current Visit: No (13) GERD (gastroesophageal reflux disease) Status: Chronic Current Visit: No (14) Hyperlipidemia Status: Chronic Current Visit: No (15) Chronic pain Status: Chronic Current Visit: No (16) Generalized weakness Status: Chronic Current Visit: No (17) Encephalopathy acute Status: Resolved Current Visit: No (18) Debility Status: Chronic Current Visit: No (19) Syncope Status: Acute Current Visit: Yes (20) Electrolyte abnormality Status: Acute Current Visit: No (21) Atrophic vaginitis Status: Chronic Current Visit: Yes (22) Dehydration Status: Acute Current Visit: Yes (23) Aortic stenosis, mild Status: Chronic Current Visit: Yes (24) Dementia Status: Suspected Current Visit: Yes - Allergies/Procedures Done in Hospital Allergies/Adverse Reactions: Allergies cortisone [Cortisone] Allergy (Verified 11/18/17 15:36) Swelling Penicillins Allergy (Verified 11/18/17 15:36) Swelling sulfamethoxazole [From Bactrim] Allergy (Verified 11/18/17 15:36) Swelling trimethoprim [From Bactrim] Allergy (Verified 11/18/17 15:36) Swelling Procedures: None - Type of Care/Length of Stay Estimated LOS: More Than 30 Days Type of Care Needed: Intermediate Rehab Potential: Fair Prognosis: Fair - Additional Orders/Day of Discharge H&P will serve as current which was dated: 11/18/17 Day of Discharge: 11/23/17 - Follow Up Care Primary Care Physician: Regi Aguilar MD [Primary Care Provider] - Within 2 Weeks Please follow up with your Primary Care Physician in: as needed
--- NOTE | 2017-11-23 17:21 | PCM.DC.SUM ---
Discharge Date and Diagnosis - Problem List Patient Problems: Active and Suspected Problems Dehydration (Acute) Dementia (Suspected) Syncope (Acute) Date of Admission: 11/18/17 Date of Discharge: 11/23/17 - Primary Discharge Diagnosis Active and Suspected Problems Syncope (Acute) Hyponatremia Hyperkalemia Dehydration (Acute) Dementia (Suspected) - Secondary Discharge Diagnosis Chronic Problems Atrophic vaginitis (Chronic) Aortic stenosis, mild (Chronic) HTN (hypertension) (Chronic) Anxiety (Chronic) Neuropathy (Chronic) Microcytic anemia (Chronic) History of urinary self-catheterization (Chronic) Neurogenic bladder Osteoarthritis (Chronic) History of coronary artery disease (Chronic) Grade I diastolic dysfunction (Chronic) Right hip pain (Chronic) GERD (gastroesophageal reflux disease) (Chronic) Hyperlipidemia (Chronic) Chronic pain (Chronic) Generalized weakness (Chronic) Debility (Chronic) Hospital Course and Treatment Imaging Results: Clinical Impression(s) from Imaging Studies Brain CT 11/18/17 16:00 IMPRESSION: Negative for new hemorrhage, hematoma or mass density. 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 Electronically Signed: Urvashi Hoffman MD at 17:15 EDT , Service support , Ankle X-Ray 11/18/17 16:03 IMPRESSION: Soft tissue injury with small cortical avulsion injury from the dorsal surface of the distal talus. No additional fracture of the ankle. Electronically Signed: Urvashi Hoffman MD at 17:07 EDT , Service support , Chest X-Ray 11/18/17 16:45 IMPRESSION: Limited inspiration without other acute cardiopulmonary findings or changes. Electronically Signed: Urvashi Hoffman MD at 17:18 EDT , Service support , KUB X-Ray 11/19/17 18:24 IMPRESSION: No acute pathology of the abdomen or pelvis. Electronically Signed: Mina Johnson MD at 20:07 EDT , Service support , Abdomen/Pelvis CT 11/20/17 10:55 IMPRESSION: 1. Colonic diverticulosis along the sigmoid colon and descending colon without diverticulitis. This is unchanged. 2. Prominent hiatal hernia. This is unchanged. 3. 10 mm solid nodule in the left adrenal gland. This is unchanged. 4. L4-L5 posterior annular tear due to escape of vacuum phenomenon in the anterior extradural space. This is a new finding. 5. Moderate asymmetric L4-L5 degenerative facet arthropathy are unchanged. 6. Moderately pronounced L5-S1 degenerative facet arthropathy with pronounced L5-S1 disc space height narrowing is unchanged. 7. Subcutaneous air bubbles in the right anterior lower abdominal wall are new. Electronically Signed: Feng Allen MD at 14:38 EDT , Service support , none Operations: None Procedures: None Summary of Care Provided: The patient is a 82 year old F with a past medical history of suspected dementia, hypertension, anxiety, urine retention, osteoarthritis, coronary artery disease with history of CABG and PTCA/drug-eluting stent, diastolic dysfunction grade 1, mild aortic stenosis, GERD, hyperlipidemia and chronic pain syndrome who was brought to the emergency room at [facility] with syncope. She had been staying at [facility] but, was given a pass to visit her niece. They complained her speech was slurred however, I have cared for this patient in the past and her speech is always slurred and difficult to understand......she is very confused at times and I feel she likely has dementia. She is unable to care for herself and has had multiple falls in the past few months. Lab in the emergency room showed a low sodium at 129 with a potassium of 5.2. The BUN was 18 and the creatinine was 1.33 which was increased from 0.6 on 10/07/2017. She was admitted to the hospital with a diagnosis of acute kidney injury likely secondary to dehydration with prerenal azotemia. Hydrochlorothiazide was discontinued and she was hydrated. She complained of vaginal pain several times during her admission and was started on Estrogen cream with goo improvement in the discomfort. She is quite anxious at times, kathi about walking because she has fallen several times recently. She was seen in consultation by Gorge Lerma from [facility] who feels that she may benefit from a general psych consult when she is transferred to the custodial. She was transferred to the custodial on 11/23/2017 and will resume her prior medications and also estrogen cream. Would administer the estrogen cream 1 tube per vagina nightly ?1 week and then twice a week from thereafter. Creatinine prior to discharge had returned to baseline at 0.77. Blood pressure is well controlled and patient denied any lightheadedness on the date of discharge. Discharge Diet: No Restrictions Discharge Activity: Return to Normal Activity Call your doctor if you observe: Fever of 101 or Higher, Shortness of breath, Fainting spells Home Medications: Medications to take at Discharge Calcium Carbonate/Vitamin D3 [Calcium 600-Vit D3 400 Tablet] 1 each PO DAILY 06/25/13 Glucosamine Sulfate Dipot Chlr [Glucosamine Relief] 500 mg PO DAILY 06/25/13 Pantoprazole Sodium [Protonix] 40 mg PO DAILY 06/27/13 Amlodipine [Norvasc] 10 mg PO DAILY 10/07/17 Aspirin 325 mg PO DAILY@0800 10/07/17 Gabapentin [Neurontin] 300 mg PO BIDCM 10/07/17 Gabapentin [Neurontin] 400 mg PO QHS 10/07/17 Lisinopril [Zestril] 10 mg PO BID 10/07/17 Metoprolol Tartrate [Lopressor (beta kirby)] 50 mg PO BID 10/07/17 Acetaminophen [Tylenol] 650 mg PO Q4H PRN 11/18/17 Escitalopram Oxalate [Lexapro] 10 mg PO DAILY 11/18/17 Nitroglycerin [Nitrostat] 0.4 mg SUBLINGUAL Q5M PRN 11/18/17 Nystatin 1 applicatio TP BID 11/18/17 Oxybutynin Chloride [Ditropan Xl] 10 mg PO DAILY 11/18/17 Psyllium Husk (with Sugar) [Metamucil Packet] 3.4 gm PO DAILY PRN 11/18/17 Senna [Senokot] 2 tablet PO DAILY 11/18/17 Bisacodyl [Dulcolax] 10 mg PO DAILY PRN PRN tablet 11/19/17 Docusate Sodium [Colace] 200 mg PO BID PRN PRN capsule 11/23/17 Estrogens, Conjugated [Premarin] 1 dose VAGINAL DAILY #1 tube 11/23/17 Magnesium Hydroxide [Milk Of Magnesia] 30 ml PO DAILY PRN udc 11/23/17 Oxycodone [Oxyir] 5 mg PO Q6H PRN PRN 7 Days #10 tab 11/23/17 Following Prescrptions Were Given to Patient: Oxycodone [Oxyir] 5 mg PO Q6H PRN PRN 7 Days #10 tab PRN Reason: Severe Pain (-02/15) Estrogens, Conjugated [Premarin] 1 dose VAGINAL DAILY #1 tube Primary Care Physician: Regi Aguilar MD [Primary Care Provider] - Within 2 Weeks Please follow up with your Primary Care Physician in: as needed Disposition: Custodial facility Minutes spent on discharge:: 35 Patient Condition:: Stable Medical Necessity - Tobacco Use Smoking Status: Never smoker Tobacco Use: Non-smoker Meaningful Use Info Meaningful Use Diagnoses (Choose all that apply): None applicable Code Visit Inpatient E&M: 45388 Disch Hosp
--- NOTE | 2017-11-23 17:35 | DS.PCM_ITS ---
Discharge Date and Diagnosis - Problem List Patient Problems: Active and Suspected Problems Dehydration (Acute) Dementia (Suspected) Syncope (Acute) Date of Admission: 11/18/17 Date of Discharge: 11/23/17 - Primary Discharge Diagnosis Active and Suspected Problems Syncope (Acute) Hyponatremia Hyperkalemia Dehydration (Acute) Dementia (Suspected) - Secondary Discharge Diagnosis Chronic Problems Atrophic vaginitis (Chronic) Aortic stenosis, mild (Chronic) HTN (hypertension) (Chronic) Anxiety (Chronic) Neuropathy (Chronic) Microcytic anemia (Chronic) History of urinary self-catheterization (Chronic) Neurogenic bladder Osteoarthritis (Chronic) History of coronary artery disease (Chronic) Grade I diastolic dysfunction (Chronic) Right hip pain (Chronic) GERD (gastroesophageal reflux disease) (Chronic) Hyperlipidemia (Chronic) Chronic pain (Chronic) Generalized weakness (Chronic) Debility (Chronic) Hospital Course and Treatment Imaging Results: Clinical Impression(s) from Imaging Studies Brain CT 11/18/17 16:00 IMPRESSION: Negative for new hemorrhage, hematoma or mass density. 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 Electronically Signed: Urvashi Hoffman MD at 17:15 EDT , Service support , Ankle X-Ray 11/18/17 16:03 IMPRESSION: Soft tissue injury with small cortical avulsion injury from the dorsal surface of the distal talus. No additional fracture of the ankle. Electronically Signed: Urvashi Hoffman MD at 17:07 EDT , Service support , Chest X-Ray 11/18/17 16:45 IMPRESSION: Limited inspiration without other acute cardiopulmonary findings or changes. Electronically Signed: Urvashi Hoffman MD at 17:18 EDT , Service support , KUB X-Ray 11/19/17 18:24 IMPRESSION: No acute pathology of the abdomen or pelvis. Electronically Signed: Mina Johnson MD at 20:07 EDT , Service support , Abdomen/Pelvis CT 11/20/17 10:55 IMPRESSION: 1. Colonic diverticulosis along the sigmoid colon and descending colon without diverticulitis. This is unchanged. 2. Prominent hiatal hernia. This is unchanged. 3. 10 mm solid nodule in the left adrenal gland. This is unchanged. 4. L4-L5 posterior annular tear due to escape of vacuum phenomenon in the anterior extradural space. This is a new finding. 5. Moderate asymmetric L4-L5 degenerative facet arthropathy are unchanged. 6. Moderately pronounced L5-S1 degenerative facet arthropathy with pronounced L5-S1 disc space height narrowing is unchanged. 7. Subcutaneous air bubbles in the right anterior lower abdominal wall are new. Electronically Signed: Feng Allen MD at 14:38 EDT , Service support , none Operations: None Procedures: None Summary of Care Provided: The patient is a 82 year old F with a past medical history of suspected dementia , hypertension, anxiety, urine retention, osteoarthritis, coronary artery disease with history of CABG and PTCA/drug-eluting stent, diastolic dysfunction grade 1, mild aortic stenosis, GERD, hyperlipidemia and chronic pain syndrome who was brought to the emergency room at [facility] with syncope. She had been staying at [facility] but, was given a pass to visit her niece. They complained her speech was slurred however, I have cared for this patient in the past and her speech is always slurred and difficult to understand......she is very confused at times and I feel she likely has dementia. She is unable to care for herself and has had multiple falls in the past few months. Lab in the emergency room showed a low sodium at 129 with a potassium of 5.2. The BUN was 18 and the creatinine was 1.33 which was increased from 0.6 on 10/07/2017. She was admitted to the hospital with a diagnosis of acute kidney injury likely secondary to dehydration with prerenal azotemia. Hydrochlorothiazide was discontinued and she was hydrated. She complained of vaginal pain several times during her admission and was started on Estrogen cream with goo improvement in the discomfort. She is quite anxious at times, kathi about walking because she has fallen several times recently. She was seen in consultation by Gorge Lerma from [facility] who feels that she may benefit from a general psych consult when she is transferred to the skilled nursing. She was transferred to the skilled nursing on 11/23/2017 and will resume her prior medications and also estrogen cream. Would administer the estrogen cream 1 tube per vagina nightly ?1 week and then twice a week from thereafter. Creatinine prior to discharge had returned to baseline at 0.77. Blood pressure is well controlled and patient denied any lightheadedness on the date of discharge. Discharge Diet: No Restrictions Discharge Activity: Return to Normal Activity Call your doctor if you observe: Fever of 101 or Higher, Shortness of breath, Fainting spells Home Medications: Medications to take at Discharge Calcium Carbonate/Vitamin D3 [Calcium 600-Vit D3 400 Tablet] 1 each PO DAILY Glucosamine Sulfate Dipot Chlr [Glucosamine Relief] 500 mg PO DAILY 06/25/13 Pantoprazole Sodium [Protonix] 40 mg PO DAILY 06/27/13 Amlodipine [Norvasc] 10 mg PO DAILY 10/07/17 Aspirin 325 mg PO DAILY@0800 10/07/17 Gabapentin [Neurontin] 300 mg PO BIDCM 10/07/17 Gabapentin [Neurontin] 400 mg PO QHS 10/07/17 Lisinopril [Zestril] 10 mg PO BID 10/07/17 Metoprolol Tartrate [Lopressor (beta kirby)] 50 mg PO BID 10/07/17 Acetaminophen [Tylenol] 650 mg PO Q4H PRN 11/18/17 Escitalopram Oxalate [Lexapro] 10 mg PO DAILY 11/18/17 Nitroglycerin [Nitrostat] 0.4 mg SUBLINGUAL Q5M PRN 11/18/17 Nystatin 1 applicatio TP BID 11/18/17 Oxybutynin Chloride [Ditropan Xl] 10 mg PO DAILY 11/18/17 Psyllium Husk (with Sugar) [Metamucil Packet] 3.4 gm PO DAILY PRN 11/18/17 Senna [Senokot] 2 tablet PO DAILY 11/18/17 Bisacodyl [Dulcolax] 10 mg PO DAILY PRN PRN tablet 11/19/17 Docusate Sodium [Colace] 200 mg PO BID PRN PRN capsule 11/23/17 Estrogens, Conjugated [Premarin] 1 dose VAGINAL DAILY #1 tube 11/23/17 Magnesium Hydroxide [Milk Of Magnesia] 30 ml PO DAILY PRN udc 11/23/17 Oxycodone [Oxyir] 5 mg PO Q6H PRN PRN 7 Days #10 tab 11/23/17 Following Prescrptions Were Given to Patient: Oxycodone [Oxyir] 5 mg PO Q6H PRN PRN 7 Days #10 tab PRN Reason: Severe Pain (-02/15) Estrogens, Conjugated [Premarin] 1 dose VAGINAL DAILY #1 tube Primary Care Physician: Regi Aguilar MD [Primary Care Provider] - Within 2 Weeks Please follow up with your Primary Care Physician in: as needed Disposition: Detention facility Minutes spent on discharge:: 35 Patient Condition:: Stable Medical Necessity - Tobacco Use Smoking Status: Never smoker Tobacco Use: Non-smoker Meaningful Use Info Meaningful Use Diagnoses (Choose all that apply): None applicable Code Visit Inpatient E&M: 50336 Disch Hosp
== END 2017-11-23 17:18 | disposition skilled nursing facility (03) ==
LOC: ED 15:52 → PCU 20:05
PROVIDERS: Admitting Provider Hospitalist; Emergency Provider Emergency Medicine; Family Provider Internal Medicine; PCP Internal Medicine; Visit Provider Internal Medicine
DX: E86.0 Dehydration (principal); R55 Syncope and collapse; R53.1 Weakness; E87.1 Hypo-osmolality and hyponatremia; E87.5 Hyperkalemia; I10 Essential (primary) hypertension; I25.10 Atherosclerotic heart disease of native coronary artery without angina pectoris; E78.5 Hyperlipidemia, unspecified; K21.9 Gastro-esophageal reflux disease without esophagitis; F41.9 Anxiety disorder, unspecified; N31.9 Neuromuscular dysfunction of bladder, unspecified; M19.90 Unspecified osteoarthritis, unspecified site; Z95.1 Presence of aortocoronary bypass graft; G89.4 Chronic pain syndrome; R47.81 Slurred speech; R29.6 Repeated falls; R41.0 Disorientation, unspecified; N17.9 Acute kidney failure, unspecified; M25.572 Pain in left ankle and joints of left foot; Z79.899 Other long term (current) drug therapy; Z79.82 Long term (current) use of aspirin
CPT/HCPCS: 36415; 70450; 71045; 73610; 74018; 74177; 80048; 80053; 81001; 83605; 84484; 85025; 85610; 85730; 87077; 87086; 87088; 87186; 93005; 96360; 96361; 96372; 97110; 97162; 97166; 97530; 99218; 99285; J7030; J7040; P9612; Q9967; A4216; G0378